=== PATIENT | female | born 1990 | race Native Hawaiian/Other Pacific Islander ===

== ENCOUNTER → 2018-06-10 | Outpatient (CLI) | payer OTHER ==
--- NOTE | 2018-06-10 17:56 | Diagnostic Imaging Report ---
PROCEDURE: US OB SINGLE FETUS <14 WKS. TECHNIQUE: Multiple real-time grayscale images were obtained over the gravid uterus in various projections. INDICATION: Assessment of date. FINDINGS: Intrauterine gestation is seen in variable presentation. Amniotic fluid index is unremarkable. cardiac activity is present with a rate of 142 beats per minute. There is no evidence of placenta previa. No placental hematoma is identified. Maternal ovaries are not visualized. biometry indicates gestational age of 16 weeks 1 day. IMPRESSION: Unremarkable obstetric ultrasound with estimated gestational age of 16 weeks 1 day. Sonographic EDC is 11/24/2018. Anatomic survey could be performed later in the second trimester. Dictated by: Dictated on workstation # [id number]
== END ==
LOC: RAD 14:04
PROVIDERS: ATTEND Family Medicine
DX: Z36.89 Encounter for other specified antenatal screening (principal); Z3A.16 16 weeks gestation of pregnancy
CPT/HCPCS: 76801

== ENCOUNTER 2018-06-26 17:37 | Emergency (ER) | payer SELFPAY ==
[~2018-06-26] VITALS: Ht 165.1 cm; Wt 72.6 kg
--- OUTSIDE RECORDS SUMMARY | 2018-06-26 17:42 | XMS REPORT ---
Author Author SAM BAO [facility] Address [address] [place] [address] Care Team Providers Care General Repairer Name Role Phone BAO VARGAS Unavailable PROBLEMS Type Condition ICD9-CM Code XHT29-VO Code Onset Dates Condition Status SNOMED Code Problem Microcytic anemia D50.9 Active 260995289 Problem Encounter for insertion of intrauterine contraceptive device Z30.430 Active 35762583 Problem Bug bites W57.XXXA Active 505942936 Problem Itching L29.9 Active 050294276 ALLERGIES No Information ENCOUNTERS Encounter Location Date Diagnosis [place] [id number] [place] [address] 52199- 5250 May, [facility] [address] [address]- [address] May, Microcytic anemia D50.9 [facility] [address] 78203- 4321 Apr, Multigravida in first trimester Z34.81 and Normal in multigravida Z34.80 [place] [id number] [place] [address] 30054- 9966 Apr, [facility] [id number] [place] [address] 20802- 1746 14 Apr, 2018 [place] [id number] [place] [address] 15962- 4444 Apr, [place] [id number] [place] [address] 31879- 0057 Apr, Encounter for test Z32.00 [facility] [id number] [place] [address] 64686 -3829 Feb, Irritant contact dermatitis due to other chemical products L24.5 [facility] [address], [place] [address] 5367 Feb, Frequent headaches R51 [facility] [id number] [place] [address] 36679 -5312 Feb, Frequent headaches R51 [facility] [id number] [place] [address] 34177 -5733 Aug, Other viral agents as the cause of diseases classified elsewhere B97.89 and Acute upper respiratory infection, unspecified J06.9 [place] [id number] [place] [address] 46516- 0401 Feb, Pyelonephritis N12 [place] [id number] [place] [address] 21353- 3689 Nov, Leukorrhea N89.8 ; Acute vaginitis N76.0 and Other specified bacterial agents as the cause of diseases classified elsewhere B96.89 [place] [id number] [place] [address] 47748- 7178 Oct, Right ovarian cyst N83.20 [place] [id number] [place] [address] 25835- 7094 Sep, [place] [id number] [place] [address] 97422- 4973 Aug, [place] [id number] [place] [address] 85126- 7512 Aug, Right ovarian cyst N83.20 [place] [id number] [place] [address] 45164- 4136 Aug, Encounter for insertion of intrauterine contraceptive device Z30.430 [place] [id number] [place] [address] 61714- 6762 Aug, Encounter for counseling regarding contraception Z30.9 [place] [id number] [place] [address] 30358- 4997 Aug, [place] [id number] [place] [address] 32726- 4952 18 Jul, 2015 Well woman exam Z01.419 ; Weight gain R63.5 and BMI 27.0- 27.9,adult Z68.27 [place] [id number] [place] [address] 31272- 1307 18 Jul, 2015 Erythema nodosum L52 and Fatigue R53.83 [place] [address] 20834- 1563 16 Jul, 2015 Erythema nodosum L52 [place] [address] 52335- 9624 30 Jun, 2015 General counseling and advice for contraceptive management Z30.09 and OCP (oral contraceptive pills) initiation Z30.011 [place] [id number] [place] [address] 37205- 6054 27 Jun, 2015 Bug bites W57.XXXA and Itching L29.9 [place] [id number] [place] [address] 22544- 8038 19 Jun, 2015 Well woman exam Z01.419 ; Weight gain R63.5 and BMI 27.0- 27.9,adult Z68.27 [place] [id number] [place] [address] 20098- 8400 27 May, 2015 Ankle pain, left M25.572 [facility] [id number] [place] [address] [id number] December, Dental examination V72.2 [facility] [id number] [place] [address] [id number] December, Dental examination V72.2 [place] [address] 89479- 0541 14 Nov, 2014 [place] [address] 57112- 4221 13 Nov, 2014 [place] [address] [place] [address]- 9429 Sep, 2014 [facility] [place] [facility] [address] [id number] [place] [address]- 6763 Sep, 2014 [facility] [place] [facility] [address] [id number] [place] [address]- 5887 Sep, 2014 [facility] [place] [facility] [address] [id number] [place] [address]- 2663 Sep, 2014 [facility] [place] [facility] [address] [id number] [place] [address]- 5580 Jun, [facility] [place] [facility] [address] [id number] [place] [address]- 8452 Jun, [facility] [place] [facility] [address] [id number] [place] [address]- 1043 May, [facility] [place] [facility] [address] [id number] [place] [address]- 4890 May, [facility] [place] [facility] [address] [id number] [place] [address]- 6561 Apr, [facility] [place] [facility] [address] [id number] [place] [address]- 1387 Apr, [facility] [place] [facility] [address] [id number] [place] [address]- 4423 Apr, [facility] [place] [facility] [address] [id number] [place] [address]- 6759 Apr, [facility] [place] [facility] [address] [id number] [place] [address]- 3018 Mar, [facility] [place] [facility] [address] [id number] [place] [address]- 1349 Mar, [facility] [place] [facility] [address] [id number] [place] [address]- 9154 December, [facility] [place] [facility] [address] [id number] [place] [address]- 9647 December, [facility] [place] [facility] [address] [id number] [place] [address]- 6620 Nov, [facility] [place] [facility] [address] [id number] [place] [address]- 7283 Nov, [facility] [place] [facility] [address] [id number] [place] [address]- 3660 Sep, [facility] [place] [facility] [address] [id number] [place] [address]- 9928 Sep, [facility] [place] [facility] [address] [id number] [place] [address]- 8542 Sep, [facility] [place] [facility] [address] [id number] [place] [address]- 7784 Sep, [facility] [place] [facility] [address] [id number] [place] [address]- 0922 Sep, [facility] [place] [facility] [address] [id number] [place] [address]- 1265 Sep, [facility] [place] [facility] [address] [id number] [place] [address]- 1613 Aug, [facility] [place] [facility] [address] [id number] [place] [address]- 8218 Aug, [facility] [place] [facility] [address] [id number] [place] [address]- 8784 Aug, [facility] [place] [facility] [address] [id number] [place] [address]- 8405 Aug, [facility] [place] [facility] [address] [id number] [place] [address]- 4855 Aug, [facility] [place] [facility] [address] [id number] [place] [address]- 3245 Aug, [facility] [place] [facility] [address] [id number] [place] [address]- 0111 Aug, [facility] [place] [facility] [address] [id number] [place] [address]- 6173 Aug, [facility] [address] [id number] [place] [address]- 5325 Jun, [facility] [place] [facility] [address] [id number] [place] [address]- 0538 Jun, [facility] [address] [id number] [place] [address]- 4906 Jan, [facility] [place] [facility] [address] [id number] [place] [address]- 3346 Jan, [facility] [address] [id number] [place] [address]- 2302 Oct, [facility] [place] [facility] [address] [facility] [id number] [place] [address]- 3914 Oct, [facility] [address] [facility] [id number] [place] [address]- 1480 Oct, [facility] [address] [facility] [id number] [place] [address]- 1900 Oct, [facility] [place] [facility] [address] [facility] [id number] [place] [address]- 3683 Oct, [facility] [address] [facility] [id number] [place] [address]- 7368 Sep, [facility] [place] [facility] [address] [id number] [place] [address]- 4159 Sep, [facility] [place] [facility] [address] [facility] [id number] [place] 3456 Sep, [facility] [place] [facility] [address] [id number] [place] [address]- 4712 May, [facility] [place] [facility] [address] [facility] [id number] [place] [address]- 7334 May, [facility] [place] [facility] [address] [facility] [id number] [place] 6366 May, [facility] [address] [facility] [id number] [place] [address]- 7996 Jan, [facility] [address] [facility] [id number] [place] [address]- 5096 Aug, IMMUNIZATIONS No Known Immunizations SOCIAL HISTORY Never Assessed REASON FOR VISIT Requesting lab results PLAN OF CARE VITAL SIGNS MEDICATIONS Medication Instructions Dosage Frequency Start Date End Date Duration Status Amoxicillin 500 mg Orally every 12 hrs 1 tablet 12h May, May, 7 days Active Ferrous Sulfate 325 (65 Fe) MG Orally Once a day 1 tablet 24h May, 30 day(s) Active RESULTS No Results PROCEDURES No Known procedures INSTRUCTIONS MEDICATIONS ADMINISTERED No Known Medications MEDICAL (GENERAL) HISTORY Type Description Date Surgical History No know Surgical history Hospitalization History childbirth 2008
--- OUTSIDE RECORDS SUMMARY | 2018-06-26 17:43 | XMS REPORT ---
Author Author AURELIA ABDUL Organization [facility] Address [address] [place] [address] Care Team Providers Care Finished Cloth Examiner Name Role Phone AURELIA ABDUL Unavailable PROBLEMS Type Condition ICD9-CM Code GSN79-NU Code Onset Dates Condition Status SNOMED Code Problem Encounter for insertion of intrauterine contraceptive device Z30.430 Active 49237058 Problem Bug bites W57.XXXA Active 092473225 Problem Itching L29.9 Active 475393774 ALLERGIES No Information ENCOUNTERS Encounter Location Date Diagnosis [place] [id number] [place] [address] 74218- 5627 Feb, Frequent headaches R51 [facility] [id number] [place] [address] 65113 -0021 Feb, Frequent headaches R51 [facility] [id number] [place] [address] 86069 -7491 Aug, Other viral agents as the cause of diseases classified elsewhere B97.89 and Acute upper respiratory infection, unspecified J06.9 [place] [id number] [place] [address] 25578- 4006 Feb, Pyelonephritis N12 [place] [id number] [place] [address] 51491- 8380 Nov, Leukorrhea N89.8 ; Acute vaginitis N76.0 and Other specified bacterial agents as the cause of diseases classified elsewhere B96.89 [place] [id number] [place] [address] 67069- 0145 Oct, Right ovarian cyst N83.20 [place] [id number] [place] [address] 74555- 2837 Sep, [place] [id number] [place] [address] 07357- 8096 27 Aug, 2015 [place] [id number] [place] [address] 58156- 7960 13 Aug, 2015 Right ovarian cyst N83.[address] 80380- 5532 11 Aug, 2015 Encounter for insertion of intrauterine contraceptive device Z30.[address] 96342- 8887 07 Aug, 2015 Encounter for counseling regarding contraception Z30.[address] 85996- 3206 04 Aug, 2015 [place] [address] 67356- 3853 18 Jul, 2015 Well woman exam Z01.419 ; Weight gain R63.5 and BMI 27.0- 27.9,adult Z68.[address] 33361- 4203 18 Jul, 2015 Erythema nodosum L52 and Fatigue R53.[address] 89083- 7980 16 Jul, 2015 Erythema nodosum L52 [address] 09088- 0581 30 Jun, 2015 General counseling and advice for contraceptive management Z30.09 and OCP (oral contraceptive pills) initiation Z30.011 [place] [id number] [place] [address] 30840- 0701 27 Jun, 2015 Bug bites W57.XXXA and Itching L29.[address] 15285- 1853 19 Jun, 2015 Well woman exam Z01.419 ; Weight gain R63.5 and BMI 27.0- 27.9,adult Z68.[address] 61114- 0596 May, Ankle pain, left M25.572 [facility] [address] [id number] [id number] December, Dental examination V72.2 [facility] [address] [id number] December, Dental examination V72.2 [facility] [id number] [place] [address] 00314- 9556 Nov, [facility] [address] [id number], [place] [address]- 2546 Nov, [facility] [id number] [place] [address] 76811- 8596 Sep, [facility] [id number] [address]- 2546 Sep, [facility] [id number] [address]- 5486 Sep, [facility] [id number] [address]- 4426 Sep, [facility] [id number] [address]- 0076 Jun, [facility] [address] [address]- 7036 Jun, [facility] [address] [facility] [id number], [place] [address]- 2546 May, [facility] [address] [facility] [id number] [address]- 2546 May, [facility] [address] [facility] [id number], [place] [address]- 2546 Apr, [facility] [address] [facility] [id number] [address]- 2546 Apr, [facility] [address] [id number] [address]- 9316 Apr, [facility] [place] [facility] [address] [id number] [place] [address]- 3850 Apr, [facility] [place] [facility] [address] [id number] [place] [address]- 6536 Mar, [facility] [place] [facility] [address] [id number] [place] [address]- 7900 Mar, [facility] [place] [facility] [address] [id number] [place] [address]- 6542 December, [facility] [place] [facility] [address] [id number] [place] [address]- 6260 December, [facility] [place] [facility] [address] [id number] [place] [address]- 8973 Nov, [facility] [place] [facility] [address] [id number] [place] [address]- 9193 Nov, [facility] [place] [facility] [address] [id number] [place] [address]- 7097 Sep, [facility] [place] [facility] [address] [id number] [place] [address]- 8262 Sep, [facility] [place] [facility] [address] [facility] [id number] [place] [address]- 4266 Sep, [facility] [place] [facility] [address] [id number] [place] [address]- 4324 Sep, [facility] [place] [facility] [address] [id number], [place] [address]- 0499 Sep, [facility] [place] [facility] [address] [id number] [place] [address]- 1766 Sep, [facility] [place] [facility] [address] [id number] [place] [address]- 9756 Aug, [facility] [place] [facility] [address] [id number] [place] [address]- 0307 Aug, [facility] [place] [facility] [address] [id number] [place] [address]- 7022 Aug, [facility] [address] [id number] [place] [address]- 8899 Aug, [facility] [address] [id number] [place] [address]- 5414 Aug, [facility] [address] [id number] [place] [address]- 9967 Aug, [facility] [address] [id number] [place] [address]- 8332 Aug, [facility] [address] [id number] [place] [address]- 2796 Aug, [facility] [address] [id number] [place] [address]- 7503 Jun, [facility] [address] [id number] [place] [address]- 1563 Jun, [facility] [address] [id number] [place] [address]- 3192 Jan, [facility] [address] [id number] [place] [address]- 7710 Jan, [facility] [address] [id number] [place] [address]- 1075 Oct, [facility] [address] [id number] [place] [address]- 5262 Oct, [facility] [place] [facility] [address] [id number] [place] [address]- 2600 Oct, [facility] [place] [facility] [address] [id number] [place] [address]- 0098 Oct, [facility] [place] [facility] [address] [id number] [place] [address]- 8850 Oct, [facility] [place] [facility] [address] [id number] [address]- 2720 Sep, [facility] [address] [id number] [address]- 4573 Sep, [facility] [address] [id number] [address]- 9786 Sep, [facility] [address] [address]- 4813 May, [facility] [id number] [place] [address] 79332- 4892 May, [facility] [address]65[address] [address]- 9360 May, [facility] [address]65[address] [address]- 4121 Jan, [facility] [address] [id number] [address]- 2244 Aug, IMMUNIZATIONS No Known Immunizations SOCIAL HISTORY Never Assessed REASON FOR VISIT Lab (walk-in)--Counts include 234 beds at the [facility] PLAN OF CARE VITAL SIGNS MEDICATIONS Unknown Medications RESULTS Name Result Date Reference Range TSH 2017-03-22 TSH 1.350 0.450-4.500 CBC 2017-03-22 WBC 3.9 3.4-10.8 RBC 4.20 3.77-5.28 Hemoglobin 11.2 11.1-15.9 Hematocrit 35.3 34.0-46.6 MCV 84 79-97 MCH 26.7 26.6-33.0 MCHC 31.7 31.5-35.7 RDW 14.8 12.3-15.4 Platelets 311 150-379 Neutrophils 50 Lymphs 38 Monocytes 6 Eos 5 Basos 1 Neutrophils (Absolute) 2.0 1.4-7.0 Lymphs (Absolute) 1.5 0.7-3.1 Monocytes(Absolute) 0.2 0.1-0.9 Eos (Absolute) 0.2 0.0-0.4 Baso (Absolute) 0.0 0.0-0.2 Immature Granulocytes 0 Immature Grans (Abs) 0.0 0.0-0.1 CMP 2017-03-22 Glucose, Serum 89 65-99 BUN 5 6-20 Creatinine, Serum 0.74 0.57-1.00 eGFR If NonAfricn Am 112 >59 eGFR If Africn Am 129 >59 BUN/Creatinine Ratio 7 9-23 Sodium, Serum 140 134-144 Potassium, Serum 4.0 3.5-5.2 Chloride, Serum 105 96-106 Carbon Dioxide, Total 19 18-29 Calcium, Serum 8.8 8.7-10.2 Protein, Total, Serum 6.8 6.0-8.5 Albumin, Serum 3.8 3.5-5.5 Globulin, Total 3.0 1.5-4.5 A/G Ratio 1.3 1.2-2.2 Bilirubin, Total 0.4 0.0-1.2 Alkaline Phosphatase, S 71 39-117 AST (SGOT) 11 0-40 ALT (SGPT) 7 0-32 PROCEDURES Procedure Date Ordered Result Body Site ASSAY THYROID STIM HORMONE March 22, 2017 COMPLETE CBC W/AUTO DIFF WBC March 22, 2017 VENIPUNCT, ROUTINE* March 22, 2017 COMPREHEN METABOLIC PANEL March 22, 2017 INSTRUCTIONS MEDICATIONS ADMINISTERED No Known Medications MEDICAL (GENERAL) HISTORY Type Description Date Hospitalization History childbirth 2008
--- OUTSIDE RECORDS SUMMARY | 2018-06-26 17:43 | XMS REPORT ---
Author Author SYLVESTER YOUNG [facility] Address [address] [place] [address] Care Team Providers Care Refrigerating Technician Name Role Phone SYLVESTER YOUNG Unavailable PROBLEMS Type Condition ICD9-CM Code KNO07-SH Code Onset Dates Condition Status SNOMED Code Problem Encounter for insertion of intrauterine contraceptive device Z30.430 Active 23620213 Problem Bug bites W57.XXXA Active 159135227 Problem Itching L29.9 Active 052001563 ALLERGIES No Known Allergies ENCOUNTERS Encounter Location Date Diagnosis [place] [id number] [address] May, [facility] [address] [address]- [address] Apr, Multigravida in first trimester Z34.81 and Normal in multigravida Z34.80 [facility] [address] 23978- [address] 20 Apr, 2018 [place] [address] [place] [id number] [place] [address] 97675- 5474 14 Apr, 2018 [facility] [address] 19644- 2759 Apr, [facility] [id number] [place] [address] 19603- 5247 07 Apr, 2018 Encounter for test Z32.00 [facility] [address] [address] Feb, Irritant contact dermatitis due to other chemical products L24.5 [facility] [id number] [place] [address] 34901- 5680 Feb, Frequent headaches R51 [facility] [id number] [place] [address] 51750 -4024 Feb, Frequent headaches R51 [facility] [id number] [place] [address] 65178 -0917 Aug, Other viral agents as the cause of diseases classified elsewhere B97.89 and Acute upper respiratory infection, unspecified J06.9 [place] [address] [address] [id number] [place] [address] 59929- 4044 Feb, Pyelonephritis N12 [place] [address] [address] [id number] [place] [address] 38227- 2956 Nov, Leukorrhea N89.8 ; Acute vaginitis N76.0 and Other specified bacterial agents as the cause of diseases classified elsewhere B96.89 [place] [address] [address] [id number] [place] [address] 47705- 1230 Oct, Right ovarian cyst N83.20 [place] [address] [address] [id number] [place] [address] 42807- 8570 Sep, [place] [address] [address] [id number] [place] [address] 32443- 3577 Aug, [place] [id number] [place] [address] 67335- 6431 Aug, Right ovarian cyst N83.20 [place] [address] [address] [id number] [place] [address] 89305- 2396 Aug, Encounter for insertion of intrauterine contraceptive device Z30.430 [place] [address] [address] [id number] [place] [address] 22430- 9092 Aug, Encounter for counseling regarding contraception Z30.9 [place] [address] [address] [id number] [place] [address] 26155- 1642 Aug, [place] [address] [address] [id number] [place] [address] 84456- 7047 Jul, Well woman exam Z01.419 ; Weight gain R63.5 and BMI 27.0- 27.9,adult Z68.27 [place] [id number] [place] [address] 00233- 4575 18 Jul, 2015 Erythema nodosum L52 and Fatigue R53.83 [place] [address] 15623- 4636 16 Jul, 2015 Erythema nodosum L52 [place] [address] 97701- 8383 30 Jun, 2015 General counseling and advice for contraceptive management Z30.09 and OCP (oral contraceptive pills) initiation Z30.011 [place] [address] 90821- 3129 27 Jun, 2015 Bug bites W57.XXXA and Itching L29.9 [place] [address] 92959- 1340 19 Jun, 2015 Well woman exam Z01.419 ; Weight gain R63.5 and BMI 27.0- 27.9,adult Z68.27 [place] [address] [id number] [place] [address] 58732- 8681 27 May, 2015 Ankle pain, left M25.572 [facility] [address] [id number] December, Dental examination V72.2 [facility] [address] [id number] December, Dental examination V72.2 [place] [address] [id number] [place] [address] 84407- 8924 Nov, [place] [address] 92291- 7171 Nov, [place] [address] 61456- 2892 Sep, [place] [address] 77751- 5560 Sep, [facility] [place] [facility] [address] [id number] [place] [address]- 5657 Sep, [facility] [place] [facility] [address] [id number] [place] [address]- 0033 Sep, [facility] [place] [facility] [address] [id number] [place] [address]- 4222 Jun, [facility] [place] [facility] [address] [id number] [place] [address]- 6759 Jun, [facility] [place] [facility] [address] [id number] [place] [address]- 0619 May, [facility] [place] [facility] [address] [id number] [place] [address]- 8644 May, [facility] [place] [facility] [address] [id number] [place] [address]- 4977 Apr, [facility] [place] [facility] [address] [id number] [place] [address]- 2920 Apr, [facility] [place] [facility] [address] [id number] [place] [address]- 7601 Apr, [facility] [place] [facility] [address] [id number] [place] [address]- 7073 Apr, [facility] [place] [facility] [address] [id number] [place] [address]- 8901 Mar, [facility] [place] [facility] [address] [id number], [place] [address]- 2510 Mar, [facility] [place] [facility] [address] [id number] [place] [address]- 3010 December, [facility] [place] [facility] [address] [id number] [place] [address]- 5944 December, [facility] [place] [facility] [address] [id number] [address]- 1681 Nov, [facility] [place] [facility] [address] [id number], [place] [address]- 6883 Nov, [facility] [place] [facility] [address] [id number] [place] [address]- 4456 Sep, [facility] [place] [facility] [address] [id number] [place] 6[address] Sep, [facility] [place] [facility] [address] [id number] [place] [address]- 4616 Sep, [facility] [place] [facility] [address] [id number] [place] [address]- 3642 Sep, [facility] [place] [facility] [address] [id number] [place] [address]- 0696 Sep, [facility] [place] [facility] [address] [id number] [place] [address]- 4946 Sep, [facility] [place] [facility] [address] [id number] [place] [address]- 7472 Aug, [facility] [place] [facility] [address] [id number] [place] [address]- 1178 Aug, [facility] [place] [facility] [address] [id number] [place] [address]- 8306 Aug, [facility] [place] [facility] [address] [id number] [place] [address]- 1161 Aug, [facility] [place] [facility] [address] [id number] [place] [address]- 8917 Aug, [facility] [place] [facility] [address] [id number] [place] [address]- 6753 Aug, [facility] [place] [facility] [address] [id number] [place] [address]- 1598 Aug, [facility] [place] [facility] [address] [id number] [place] [address]- 0568 Aug, [facility] [place] [facility] [address] [id number] [place] [address]- 4304 Jun, [facility] [place] [facility] [address] [id number] [place] [address]- 3567 Jun, [facility] [place] [facility] [address] [id number] [place] [address]- 8913 Jan, [facility] [place] [facility] [address] [id number] [place] [address]- 5180 Jan, [facility] [place] [facility] [address] [id number] [place] [address]- 0755 Oct, [facility] [place] [facility] [address] [id number] [place] [address]- 8172 Oct, [facility] [place] [facility] [address] [id number] [place] [address]- 5949 Oct, [facility] [address] [id number] [place] [address]- 4412 Oct, [facility] [place] [facility] [address] [id number] [place] [address]- 9196 Oct, [facility] [place] [facility] [address] [id number] [place] [address]- 7936 Sep, [facility] [place] [facility] [address] [id number] [place] [address]- 8353 Sep, [facility] [place] [facility] [address] [id number] [place] [address]- 1691 Sep, [facility] [place] [facility] [address] [id number], [place] [address]- 8319 May, [facility] [place] [facility] [address] [id number] [place] [address]- 5761 May, [facility] [place] [facility] [address] [id number] [place] [address]- 3346 May, [facility] [place] [facility] [address] [id number], [place] [address]- 9124 Jan, [facility] [place] [facility] [address] [id number] [address]- 1727 Aug, IMMUNIZATIONS No Known Immunizations SOCIAL HISTORY Never Assessed REASON FOR VISIT OB HX PLAN OF CARE VITAL SIGNS MEDICATIONS Medication Instructions Dosage Frequency Start Date End Date Duration Status Active Propranolol HCl 40 mg Orally Twice a day 1 tablet 12h Feb, 30 day(s) Unknown RESULTS No Results PROCEDURES No Known procedures INSTRUCTIONS MEDICATIONS ADMINISTERED No Known Medications MEDICAL (GENERAL) HISTORY Type Description Date Surgical History No know Surgical history Hospitalization History childbirth 2008
--- OUTSIDE RECORDS SUMMARY | 2018-06-26 17:43 | XMS REPORT ---
Author Author NINFA JACKSON Organization [facility] Address [address] [place] [address] Care Team Providers Care Hospital Secretary Name Role Phone NINFA JACKSON Unavailable PROBLEMS Type Condition ICD9-CM Code [id number] Code Onset Dates Condition Status SNOMED Code Problem Encounter for insertion of intrauterine contraceptive device Z30.430 Active 82339338 Problem Bug bites W57.XXXA Active 197776198 Problem Itching L29.9 Active 789479885 ALLERGIES No Known Allergies ENCOUNTERS Encounter Location Date Diagnosis [facility] [address] [address] Feb, Irritant contact dermatitis due to other chemical products L24.5 [facility] [address] [place] [id number] [place] [address] 32791- 1530 Feb, Frequent headaches R51 [facility] [address] 9[address] -2096 Feb, Frequent headaches R51 [facility] [address] [place] [id number] [place] [address] 45649 -9286 Aug, Other viral agents as the cause of diseases classified elsewhere B97.89 and Acute upper respiratory infection, unspecified J06.9 [facility] [address] [place] [id number] [place] [address] 07724- 3211 Feb, Pyelonephritis N12 [place] [address] 36[address]- 8265 Nov, Leukorrhea N89.8 ; Acute vaginitis N76.0 and Other specified bacterial agents as the cause of diseases classified elsewhere B96.89 [place] [address] 52734- 6056 Oct, Right ovarian cyst N83.20 [place] [address] [place] [id number] [place] [address] 22658- 8069 04 Sep, 2015 [place] [address] 39261- 9256 Aug, [place] [address] 03278- 7656 Aug, Right ovarian cyst N83.20 [place] [address] 00824- 5369 Aug, Encounter for insertion of intrauterine contraceptive device Z30.[address] 77274- 2963 07 Aug, 2015 Encounter for counseling regarding contraception Z30.[address] 71236- 0493 Aug, [place] [address] 07606- 5190 Jul, Well woman exam Z01.419 ; Weight gain R63.5 and BMI 27.0- 27.9,adult Z68.[address] 60007- 9297 Jul, Erythema nodosum L52 and Fatigue R53.[address] 74711- 5525 Jul, Erythema nodosum L52 [address] 43065- 9345 30 Jun, 2015 General counseling and advice for contraceptive management Z30.09 and OCP (oral contraceptive pills) initiation Z30.[address] 22346- 9148 27 Jun, 2015 Bug bites W57.XXXA and Itching L29.[address] 03744- 5156 Jun, Well woman exam Z01.419 ; Weight gain R63.5 and BMI 27.0- 27.9,adult Z68.27 [facility] [address] [place] [address] [id number] [place] [address] 74016- 1226 May, Ankle pain, left M25.572 [facility] [address] [id number] [place] [address] [id number] December, Dental examination V72.2 [facility] [address] [id number] December, Dental examination V72.2 [facility] [address] [address] [id number] [place] [address] 98970- 4830 Nov, [facility] [address] [place] [id number] [place] [address] 858185- 2686 Nov, [facility] [address] [place] [id number] [place] [address] 454485- 7231 Sep, [facility] [address] [place] [address] [id number] [place] [address] 55636- 4441 Sep, [facility] [address] [address] [id number] [place] [address] 62448- 4429 Sep, [facility] [address] [id number] [place] [address] 20019- 6570 Sep, [facility] [address] [place] [address] [id number] [place] [address] 26164- 2546 Jun, [facility] [address] [place] [id number] [place] [address] 000272- 2646 Jun, [facility] [address] [place] [id number] [place] [address] 57922- 3442 May, [facility] [address] [place] [id number] [place] [address] 90834- 7336 May, [facility] [address] [place] [id number] [place] [address] 217997- 7776 Apr, [facility] [place] [facility] [address] [id number] [place] [address]- 6045 Apr, [facility] [place] [facility] [address] [id number] [place] [address]- 4071 Apr, [facility] [place] [facility] [address] [id number] [place] [address]- 2649 Apr, [facility] [place] [facility] [address] [id number] [place] [address]- 9646 Mar, [facility] [place] [facility] [address] [id number] [place] [address]- 0665 Mar, [facility] [place] [facility] [address] [id number] [place] [address]- 2396 December, [facility] [place] [facility] [address] [id number] [place] [address]- 1972 December, [facility] [place] [facility] [address] [id number] [place] [address]- 2860 Nov, [facility] [place] [facility] [address] [id number] [place] [address]- 4785 Nov, [facility] [place] [facility] [address] [id number] [place] [address]- 6241 Sep, [facility] [place] [facility] [address] [id number] [place] [address]- 3495 Sep, [facility] [place] [facility] [address] [id number] [place] [address]- 6336 Sep, [facility] [place] [facility] [address] [id number] [place] [address]- 5977 Sep, [facility] [place] [facility] [address] [id number] [place] [address]- 8297 Sep, [facility] [place] [facility] [address] [id number] [place] [address]- 9545 Sep, [facility] [place] [facility] [address] [id number] [place] [address]- 6605 Aug, [facility] [address] [id number] [place] [address]- 4487 Aug, [facility] [place] [facility] [address] [id number] [place] [address]- 9000 Aug, [facility] [address] [id number] [place] [address]- 5782 Aug, [facility] [place] [facility] [address] [id number] [place] [address]- 6401 Aug, [facility] [address] [id number] [place] [address]- 7503 Aug, [facility] [place] [facility] [address] [id number] [place] [address]- 4005 Aug, [facility] [address] [id number] [place] [address]- 6936 Aug, [facility] [address] [id number] [place] [address]- 6526 Jun, [facility] [place] [facility] [address] [id number] [place] [address]- 2531 Jun, [facility] [address] [id number] [place] [address]- 2404 Jan, [facility] [place] [facility] [address] [id number] [place] [address]- 3077 Jan, [facility] [place] [facility] [address] [id number] [place] [address]- 1320 Oct, [facility] [place] [facility] [address] [id number] [place] [address]- 7982 Oct, [facility] [place] [facility] [address] [id number] [place] [address]- 9029 Oct, [facility] [place] [facility] [address] [id number] [place] [address]- 2230 Oct, [facility] [address] [id number] [address] 2546 Oct, [facility] [address] [address]- 6186 Sep, [facility] [address] [address]- 8116 Sep, [facility] [address], [place] [address] 2546 Sep, [facility] [address] [address]- 8930 May, [facility] [address] [place] [address]- 6716 May, [facility] [address], [place] [address] 2546 May, [facility] [address] [place] [address]- 9396 Jan, [facility] [address] [id number] [address]- 8656 Aug, IMMUNIZATIONS No Known Immunizations SOCIAL HISTORY Never Assessed REASON FOR VISIT rash on left middle finger that itches for 2 weeks. kbullardrn PLAN OF CARE Activity Details Follow Up 1 Week, prn Reason:if symptoms worsen or not improving VITAL SIGNS Height 62 in 2018-03-07 Weight 146.6 lbs 2018-03-07 Temperature 98.4 degrees Fahrenheit 2018-03-07 Heart Rate 82 bpm 2018-03-07 Respiratory Rate 20 2018-03-07 BMI 26.81 kg/m2 2018-03-07 Blood pressure systolic 124 mmHg 2018-03-07 Blood pressure diastolic 76 mmHg 2018-03-07 MEDICATIONS Medication Instructions Dosage Frequency Start Date End Date Duration Status Propranolol HCl 40 mg Orally Twice a day 1 tablet 12h Feb, 30 day(s) Not-Taking Cetirizine HCl 10 mg Orally Once a day 1 tablet 24h Feb, Feb, 07 days Active Betamethasone Dipropionate Aug 0.05 % Externally Once a day 1 application to affected area 24h Feb, Feb, 07 days Active RESULTS No Results PROCEDURES No Known procedures INSTRUCTIONS MEDICATIONS ADMINISTERED No Known Medications MEDICAL (GENERAL) HISTORY Type Description Date Hospitalization History childbirth 2008
--- OUTSIDE RECORDS SUMMARY | 2018-06-26 17:43 | XMS REPORT ---
Author Author BIANKA SMITH [facility] Address [address] [place] [address] Care Team Providers Care Advanced Nursing Professor Name Role Phone LUIS BIANKA Unavailable PROBLEMS Type Condition ICD9-CM Code DTM40-YB Code Onset Dates Condition Status SNOMED Code Problem Encounter for insertion of intrauterine contraceptive device Z30.430 Active 86374473 Problem Bug bites W57.XXXA Active 844952767 Problem Itching L29.9 Active 062604875 ALLERGIES No Information ENCOUNTERS Encounter Location Date Diagnosis [place] [address] [address] May, [place] [address] 97376- 9348 Apr, Multigravida in first trimester Z34.81 and Normal in multigravida Z34.80 [place] [address] 24896- 7370 Apr, [place] [address] [place] [id number] [place] [address] 56460- 3665 14 Apr, 2018 [place] [address] 43155- 4264 Apr, [place] [address] [place] [id number] [place] [address] 64076- 1175 07 Apr, 2018 Encounter for test Z32.00 [facility] [address] [place] [address] 18680 -6281 Feb, Irritant contact dermatitis due to other chemical products L24.5 [place] [address] [place] [id number] [place] [address] 18369- 0321 Feb, Frequent headaches R51 [facility] [address] [place] [address] 50497 -9662 Feb, Frequent headaches R51 [facility] [address] [place] [id number] [place] [address] 94334 -4626 Aug, Other viral agents as the cause of diseases classified elsewhere B97.89 and Acute upper respiratory infection, unspecified J06.9 [place] [address] [place] [id number] [place] [address] 32161- 6133 Feb, Pyelonephritis N12 [place] [address] [place] [id number] [place] [address] 30262- 9085 Nov, Leukorrhea N89.8 ; Acute vaginitis N76.0 and Other specified bacterial agents as the cause of diseases classified elsewhere B96.89 [place] [address] [place] [id number] [place] [address] 19067- 3057 Oct, Right ovarian cyst N83.20 [place] [address] 17939- 6009 Sep, [place] [address] [place] [id number] [place] [address] 28766- 3587 Aug, [place] [address] [place] [id number] [place] [address] 29343- 2974 Aug, Right ovarian cyst N83.20 [place] [address] [place] [id number] [place] [address] 80049- 4058 Aug, Encounter for insertion of intrauterine contraceptive device Z30.430 [place] [address] [place] [id number] [place] [address] 57395- 7714 Aug, Encounter for counseling regarding contraception Z30.9 [place] [address] 41139- 2607 Aug, [place] [address] [place] [id number] [place] [address] 53234- 8998 Jul, Well woman exam Z01.419 ; Weight gain R63.5 and BMI 27.0- 27.9,adult Z68.27 [place] [address] [place] [id number] [place] [address] 76306- 1190 18 Jul, 2015 Erythema nodosum L52 and Fatigue R53.83 [place] [address] 89703- 7636 16 Jul, 2015 Erythema nodosum L52 [place] [address] 08304- 2498 30 Jun, 2015 General counseling and advice for contraceptive management Z30.09 and OCP (oral contraceptive pills) initiation Z30.011 [place] [address] 28403- 2153 27 Jun, 2015 Bug bites W57.XXXA and Itching L29.9 [place] [address] 48540- 3815 Jun, Well woman exam Z01.419 ; Weight gain R63.5 and BMI 27.0- 27.9,adult Z68.27 [place] [address] 68811- 7121 May, Ankle pain, left M25.572 [facility] [address] [id number] December, Dental examination V72.2 [facility] [address] [id number] December, Dental examination V72.2 [place] [address] [place] [id number] [place] [address] 68247- 0584 Nov, [place] [address] 33654- 9179 Nov, [place] [address] 67096- 8416 Sep, [place] [address] 68923- 2752 Sep, [facility] [place] [facility] [address] [id number] [place] [address]- 8517 Sep, [facility] [place] [facility] [address] [id number] [place] [address]- 1251 Sep, [facility] [place] [facility] [address] [id number] [place] [address]- 9871 Jun, [facility] [place] [facility] [address] [id number] [place] [address]- 4026 Jun, [facility] [place] [facility] [address] [id number] [place] [address]- 7538 May, [facility] [place] [facility] [address] [id number] [place] [address]- 1942 May, [facility] [place] [facility] [address] [id number] [place] [address]- 0273 Apr, [facility] [place] [facility] [address] [id number] [place] [address]- 5445 Apr, [facility] [place] [facility] [address] [id number] [place] [address]- 9790 Apr, [facility] [place] [facility] [address] [id number] [place] [address]- 0160 Apr, [facility] [place] [facility] [address] [id number] [place] [address]- 3154 Mar, [facility] [place] [facility] [address] [id number] [place] [address]- 8662 Mar, [facility] [place] [facility] [address] [id number] [place] [address]- 4008 December, [facility] [place] [facility] [address] [id number] [place] [address]- 4280 December, [facility] [place] [facility] [address] [id number] [place] [address]- 5935 Nov, [facility] [place] [facility] [address] [id number] [place] [address]- 5695 Nov, [facility] [place] [facility] [address] [id number] [place] [address]- 1146 Sep, [facility] [place] [facility] [address] [id number] [place] 2506 Sep, [facility] [place] [facility] [address] [id number] [place] [address]- 8216 Sep, [facility] [place] [facility] [address] [id number] [place] [address]- 1919 Sep, [facility] [place] [facility] [address] [id number] [place] [address]- 0188 Sep, [facility] [place] [facility] [address] [id number] [place] [address]- 7340 Sep, [facility] [place] [facility] [address] [id number] [place] [address]- 2417 Aug, [facility] [place] [facility] [address] [id number] [place] [address]- 0573 Aug, [facility] [place] [facility] [address] [id number] [place] [address]- 8827 Aug, [facility] [place] [facility] [address] [facility] [id number] [place] [address]- 0954 Aug, [facility] [place] [facility] [address] [id number] [place] [address]- 8595 Aug, [facility] [place] [facility] [address] [id number] [address]- 7122 Aug, [facility] [place] [facility] [address] [id number] [place] [address]- 4275 Aug, [facility] [place] [facility] [address] [id number] [place] [address]- 1459 Aug, [facility] [place] [facility] [address] [id number] [place] [address]- 2085 Jun, [facility] [place] [facility] [address] [id number] [place] [address]- 4877 Jun, [facility] [place] [facility] [address] [id number] [place] 7284 Jan, [facility] [place] [facility] [address] [id number] [place] [address]- 7073 Jan, [facility] [place] [facility] [address] [id number] [place] [address]- 4979 Oct, [facility] [place] [facility] [address] [id number] [place] [address]- 0958 Oct, [facility] [place] [facility] [address] [id number] [place] [address]- 6667 Oct, [facility] [place] [facility] [address] [id number] [place] [address]- 0451 Oct, [facility] [place] [facility] [address] [id number] [place] [address]- 1156 Oct, [facility] [place] [facility] [address] [id number] [place] [address]- 6761 Sep, [facility] [place] [facility] [address] [id number] [place] [address]- 1399 Sep, [facility] [place] [facility] [address] [id number] [place] [address]- 2095 Sep, [facility] [place] [facility] [address] [id number] [place] [address]- 9112 May, [facility] [place] [facility] [address] [id number] [place] [address]- 1367 May, [facility] [place] [facility] [address] [id number] [place] [address]- 5274 May, [facility] [place] [facility] [address] [id number] [place] [address]- 8496 Jan, [facility] [place] [facility] [address] [id number] [place] [address]- 3006 Aug, IMMUNIZATIONS No Known Immunizations SOCIAL HISTORY Never Assessed REASON FOR VISIT test (walk-in)--KUMAR Heller PLAN OF CARE VITAL SIGNS MEDICATIONS Unknown Medications RESULTS Name Result Date Reference Range TEST, URINE (IN HOUSE) 2018-05-03 RESULTS positive Lot # [id number] Control + Exp date 05/2020 PROCEDURES Procedure Date Ordered Result Body Site URINE TEST May 03, 2018 INSTRUCTIONS MEDICATIONS ADMINISTERED No Known Medications MEDICAL (GENERAL) HISTORY Type Description Date Surgical History No know Surgical history Hospitalization History childbirth 2009
--- OUTSIDE RECORDS SUMMARY | 2018-06-26 17:44 | XMS REPORT ---
Author Author GERBER QUEEN [facility] [employer] Address Unknown Phone Unavailable Care Team Providers Care Swine Genetics Researcher Name Role Phone GERBER QUEEN Unavailable Allergies No Known Allergies Problems Problem Type Condition Code Onset Dates Condition Status Problem Bug bites W57.XXXA Active Problem Itching L29.9 Active Problem Encounter for insertion of intrauterine contraceptive device Z30.430 Active Medications No Known Medications Results No Known Results Summary Purpose eClinicalWorks Submission
--- OUTSIDE RECORDS SUMMARY | 2018-06-26 17:44 | XMS REPORT ---
Author Author GERBER QUEEN [facility] eClinicalWorks Address Unknown Phone Unavailable Care Team Providers Care Group Teacher Name Role Phone GERBER QUEEN CP Unavailable Allergies, Adverse Reactions, Alerts Substance Reaction Event Type N.K.D.A. Info Not Available Non Drug Allergy Problems Problem Type Condition Code Onset Dates Condition Status Problem Bug bites W57.XXXA Active Problem Itching L29.9 Active Problem Encounter for insertion of intrauterine contraceptive device Z30.430 Active Assessment Encounter for insertion of intrauterine contraceptive device Z30.430 Active Medications Medication Code System Code Instructions Start Date End Date Status Dosage Ibuprofen [facility] [address]-65 800 MG Orally Three times a day Aug 11, 2015 Oct 10, 2015 1 tablet Vistaril [facility] [address]-39 25 MG Orally every 8 hrs Jul 23, 2015 1 capsule as needed Triamcinolone Acetonide [facility] [address]-86 0.1 % Externally Twice a day Jul 23, 2015 1 application to affected area Procedures Procedure Coding System Code Date URINE TEST CPT-4 50241 Sep 06, 2015 LEVONORGESTREL INTRAUTERN CNTRACPT CPT-4 J7302 Sep 06, 2015 INSERT INTRAUTERINE DEVICE CPT-4 85691 Sep 06, 2015 Vital Signs Date/Time: Sep 06, 2015 Temperature 97.1 F Weight 159.3 lbs Height 62 in BMI 29.13 Index Blood Pressure Diastolic 82 mmHg Blood Pressure Systolic 124 mmHg Cardiac Monitoring Heart Rate 84 bpm Results Name Result Date Reference Range Unit Abnormality Flag IUD INSERTION Summary Purpose eClinicalWorks Submission
--- OUTSIDE RECORDS SUMMARY | 2018-06-26 17:44 | XMS REPORT ---
Author Author LIZZIE DOWELL Organization [employer] Address Unknown Phone Unavailable Care Team Providers Care Manager Testing Name Role Phone LIZZIE DOWELL CP Unavailable Allergies, Adverse Reactions, Alerts Substance Reaction Event Type N.K.D.A. Info Not Available Non Drug Allergy Problems Problem Type Condition Code Onset Dates Condition Status Problem Screening for malignant neoplasm of the cervix V76.2 Active Problem Surveillance of other previously prescribed contraceptive method V25.49 Active Problem Screening examination for venereal disease V74.5 Active Problem Other dyspnea and respiratory abnormalities 786.09 Active Problem Unspecified anemia 285.9 Active Problem Other malaise and fatigue 780.79 Active Problem Contact dermatitis and other eczema, due to unspecified cause 692.9 Active Problem Unspecified contraceptive management V25.9 Active Problem Encounter for removal of intrauterine contraceptive device V25.12 Active Problem Other general counseling and advice for contraceptive management V25.09 Active Assessment Ankle pain, left M25.572 Active Problem Cellulitis and abscess of leg, except foot 682.6 Active Problem Headache 784.0 Active Problem Cellulitis and abscess of buttock 682.5 Active Problem Screening examination for pulmonary tuberculosis V74.1 Active Problem Unspecified symptom associated with female genital organs 625.9 Active Problem Lumbago 724.2 Active Medications No Known Medications Procedures Procedure Coding System Code Date Office Visit, Est Pt., Level 3 CPT-4 32481 Jun 22, 2015 Vital Signs Date/Time: Jun 22, 2015 Temperature 97.9 F Weight 148.3 lbs Height 62 in BMI 27.12 Index Blood Pressure Diastolic 74 mmHg Blood Pressure Systolic 130 mmHg Cardiac Monitoring Heart Rate 84 bpm Results No Known Results Summary Purpose eClinicalWorks Submission
--- OUTSIDE RECORDS SUMMARY | 2018-06-26 17:44 | XMS REPORT ---
Author Author GERBER QUEEN [facility] eClinicalWorks Address Unknown Phone Unavailable Care Team Providers Care Learning And Development Specialist Name Role Phone GERBER QUEEN Unavailable Allergies No Known Allergies Problems Problem Type Condition Code Onset Dates Condition Status Problem Itching L29.9 Active Assessment Well woman exam Z01.419 Active Problem Bug bites W57.XXXA Active Assessment Weight gain R63.5 Active Assessment BMI 27.0-27.9,adult Z68.27 Active Medications No Known Medications Procedures Procedure Coding System Code Date COMPLETE CBC W/AUTO DIFF WBC CPT-4 00320 Aug 13, 2015 COMPREHEN METABOLIC PANEL CPT-4 27284 Aug 13, 2015 GLYCATED HEMOGLOBIN TEST CPT-4 11522 Aug 13, 2015 Results No Known Results Summary Purpose eClinicalWorks Submission
--- OUTSIDE RECORDS SUMMARY | 2018-06-26 17:44 | XMS REPORT ---
Author Author AURELIA ABDUL Organization [facility] Address [address] [place] [address] Care Team Providers Care Nuclear Licensing Engineer Name Role Phone UARELIA ABDUL Unavailable PROBLEMS Type Condition ICD9-CM Code BNX29-UX Code Onset Dates Condition Status SNOMED Code Problem Encounter for insertion of intrauterine contraceptive device Z30.430 Active 97993702 Problem Bug bites W57.XXXA Active 328584801 Problem Itching L29.9 Active 417448013 ALLERGIES No Known Allergies ENCOUNTERS Encounter Location Date Diagnosis [place] [address] [place] [id number] [place] [address] 32698- 8265 Feb, Frequent headaches R51 [facility] [address] [place] [id number] [place] [address] 31912 -7757 Feb, Frequent headaches R51 [facility] [address] [place] [id number] [place] [address] 13439 -4659 Aug, Other viral agents as the cause of diseases classified elsewhere B97.89 and Acute upper respiratory infection, unspecified J06.9 [place] [address] [place] [address] 28768- 8961 Feb, Pyelonephritis N12 [place] [address] [place] [id number] [place] [address] 44156- 2198 Nov, Leukorrhea N89.8 ; Acute vaginitis N76.0 and Other specified bacterial agents as the cause of diseases classified elsewhere B96.89 [place] [address] [place] [id number] [place] [address] 05655- 7534 Oct, Right ovarian cyst N83.20 [place] [address] [place] [id number] [place] [address] 77969- 0207 Sep, [place] [address] [place] [id number] [place] [address] 05463- 7446 27 Aug, 2015 [place] [address] [place] [id number] [place] [address] 84045- 2329 13 Aug, 2015 Right ovarian cyst N83.[address] 45262- 3705 11 Aug, 2015 Encounter for insertion of intrauterine contraceptive device Z30.[address] 99468- 3463 07 Aug, 2015 Encounter for counseling regarding contraception Z30.[address] 66904- 0007 04 Aug, [address] 56298- 7113 18 Jul, 2015 Well woman exam Z01.419 ; Weight gain R63.5 and BMI 27.0- 27.9,adult Z68.[address] 26880- 4306 18 Jul, 2015 Erythema nodosum L52 and Fatigue R53.[address] 70788- 6778 16 Jul, 2015 Erythema nodosum L52 [address] 76763- 4456 30 Jun, 2015 General counseling and advice for contraceptive management Z30.09 and OCP (oral contraceptive pills) initiation Z30.011 [place] [id number] [place] [address] 95829- 2165 27 Jun, 2015 Bug bites W57.XXXA and Itching L29.[address] 78968- 5868 19 Jun, 2015 Well woman exam Z01.419 ; Weight gain R63.5 and BMI 27.0- 27.9,adult Z68.[address] 11594- 2406 May, Ankle pain, left M25.572 [facility] [address] [id number] [id number] December, Dental examination V72.2 [facility] [address] [id number] December, Dental examination V72.2 [facility] [id number] [place] [address] 74504- 1576 Nov, [facility] [address] [id number], [place] [address]- 7975 Nov, [facility] [address] [id number] [place] [address] 84119- 7136 Sep, [facility] [address] [address]- 7786 Sep, [facility] [address] [place] [id number] [place] [address] 83571- 6936 Sep, [facility] [address] [place] [address] [id number] [address]- 2456 Sep, [facility] [address] [address]- 4666 Jun, [facility] [address] [address]- 9776 Jun, [facility] [address] [facility] [id number], [place] [address]- 2546 May, [facility] [address] [facility] [id number], [place] [address]- 9306 May, [facility] [address] [facility] [id number], [place] [address]- 2546 Apr, [facility] [address] [facility] [id number], [place] [address]- 2486 Apr, [facility] [address] [facility] [id number], [place] [address]- 4588 Apr, [facility] [place] [facility] [address] [id number] [place] [address]- 3715 Apr, [facility] [place] [facility] [address] [id number] [place] [address]- 9401 Mar, [facility] [place] [facility] [address] [id number] [place] [address]- 7398 Mar, [facility] [place] [facility] [address] [id number] [place] [address]- 2197 December, [facility] [place] [facility] [address] [id number] [place] [address]- 7354 December, [facility] [place] [facility] [address] [id number] [place] [address]- 7294 Nov, [facility] [place] [facility] [address] [id number] [place] [address]- 8412 Nov, [facility] [place] [facility] [address] [id number] [place] [address]- 8748 Sep, [facility] [place] [facility] [address] [id number] [place] [address]- 8734 Sep, [facility] [place] [facility] [address] [id number] [place] [address]- 1786 Sep, [facility] [place] [facility] [address] [id number] [place] [address]- 1621 Sep, [facility] [place] [facility] [address] [id number] [place] [address]- 0503 Sep, [facility] [place] [facility] [address] [id number] [place] [address]- 0057 Sep, [facility] [place] [facility] [address] [id number] [place] [address]- 8618 Aug, [facility] [place] [facility] [address] [id number] [place] [address]- 0333 Aug, [facility] [place] [facility] [address] [id number] [place] [address]- 7288 Aug, [facility] [address] [id number] [place] [address]- 3207 Aug, [facility] [address] [id number] [place] [address]- 2868 Aug, [facility] [address] [id number] [place] [address]- 3246 Aug, [facility] [address] [id number] [place] [address]- 1577 Aug, [facility] [address] [id number] [place] [address]- 1465 Aug, [facility] [address] [id number] [place] [address]- 1087 Jun, [facility] [address] [id number] [place] [address]- 7340 Jun, [facility] [address] [id number] [place] [address]- 3309 Jan, [facility] [address] [id number] [place] [address]- 8118 Jan, [facility] [address] [id number] [place] [address]- 5251 Oct, [facility] [address] [id number] [place] [address]- 2273 Oct, [facility] [place] [facility] [address] [id number] [place] [address]- 4827 Oct, [facility] [place] [facility] [address] [id number] [place] [address]- 3462 Oct, [facility] [place] [facility] [address] [id number] [place] [address]- 7179 Oct, [facility] [place] [facility] [address] [id number], [place] [address] 2546 Sep, [facility] [address] [id number], [place] [address]- 6345 Sep, [facility] [address]65[address], [place] [address] 2546 Sep, [facility] [address]65100[place], [place] [address]- 8056 May, [facility] [address]65[address], [place] [address]- 2546 May, [facility] [address], [place] [address] 2546 May, [facility] [address], [place] [address]- 0986 Jan, [facility] [address]65[address] [address]- 3837 Aug, IMMUNIZATIONS No Known Immunizations SOCIAL HISTORY Never Assessed REASON FOR VISIT headaches for years- has been gettng worse is not forgetting [facility] PLAN OF CARE VITAL SIGNS Height 62 in 2017-03-21 Weight 156.0 lbs 2017-03-21 Temperature 98.4 degrees Fahrenheit 2017-03-21 Heart Rate 80 bpm 2017-03-21 Respiratory Rate 20 2017-03-21 BMI 28.53 kg/m2 2017-03-21 Blood pressure systolic 148 mmHg 2017-03-21 Blood pressure diastolic 92 mmHg 2017-03-21 MEDICATIONS Medication Instructions Dosage Frequency Start Date End Date Duration Status Propranolol HCl 40 mg Orally Twice a day 1 tablet 12h Feb, 30 day(s) Active RESULTS No Results PROCEDURES No Known procedures INSTRUCTIONS MEDICATIONS ADMINISTERED No Known Medications MEDICAL (GENERAL) HISTORY Type Description Date Hospitalization History childbirth 2008
--- OUTSIDE RECORDS SUMMARY | 2018-06-26 17:44 | XMS REPORT ---
Author Author LIZZIE DOWELL Organization [employer] Address Unknown Phone Unavailable Care Team Providers Care Cesspool Cleaner Name Role Phone LIZZIE DOWELL CP Unavailable Allergies, Adverse Reactions, Alerts Substance Reaction Event Type N.K.D.A. Info Not Available Non Drug Allergy Problems Problem Type Condition Code Onset Dates Condition Status Assessment Pyelonephritis N12 Active Medications Medication Code System Code Instructions Start Date End Date Status Dosage Ceftin [facility] [address]-95 500 MG Orally Twice a day March 05, 2016 March 15, 2016 1 tablet Zofran [facility] [address]-05 4 MG Orally every 8 hours, PRN March 06, 2016 1 tablets Cipro [facility] [address]-53 500 MG Orally Twice a day March 05, 2016 March 15, 2016 1 tablet Meclizine HCl [facility] [address]-21 25 MG Orally Once a day 1 tablet as needed Procedures Procedure Coding System Code Date Office Visit, Est Pt., Level 3 CPT-4 77637 March 06, 2016 Vital Signs Date/Time: March 06, 2016 Cardiac Monitoring Heart Rate 120 bpm Weight 149.5 lbs Height 65 in BMI 24.88 Index Blood Pressure Diastolic 68 mmHg Blood Pressure Systolic 102 mmHg Results No Known Results Summary Purpose [employer] Submission
--- OUTSIDE RECORDS SUMMARY | 2018-06-26 17:44 | XMS REPORT ---
Author Author BUCKY SPARKS Organization [facility] Address [address] [place] [address] Care Team Providers Care Retail Attendant Name Role Phone CLARE BUCKY Unavailable PROBLEMS Type Condition ICD9-CM Code TOZ77-IF Code Onset Dates Condition Status SNOMED Code Problem Encounter for insertion of intrauterine contraceptive device Z30.430 Active 01595110 Problem Bug bites W57.XXXA Active 011218729 Problem Itching L29.9 Active [id number] ALLERGIES No Known Allergies SOCIAL HISTORY Never Assessed PLAN OF CARE Activity Details Follow Up prn Reason: VITAL SIGNS Height 65 in 2016-09-20 Weight 156.6 lbs 2016-09-20 Temperature 97.7 degrees Fahrenheit 2016-09-20 Heart Rate 80 bpm 2016-09-20 Respiratory Rate 20 2016-09-20 BMI 26.06 kg/m2 2016-09-20 Blood pressure systolic 128 mmHg 2016-09-20 Blood pressure diastolic 76 mmHg 2016-09-20 MEDICATIONS Unknown Medications RESULTS No Results PROCEDURES No Known procedures IMMUNIZATIONS No Known Immunizations MEDICAL (GENERAL) HISTORY Type Description Date Hospitalization History childbirth 2008
--- OUTSIDE RECORDS SUMMARY | 2018-06-26 17:44 | XMS REPORT ---
Author Author VALDEZ LEBLANC [facility] eClinicalWorks Address Unknown Phone Unavailable Care Team Providers Care [place] Name Role Phone VALDEZ LEBLANC CP Unavailable Allergies, Adverse Reactions, Alerts Substance Reaction Event Type N.K.D.A. Info Not Available Non Drug Allergy Problems Problem Type Condition Code Onset Dates Condition Status Problem Itching L29.9 Active Assessment Erythema nodosum L52 Active Problem Bug bites W57.XXXA Active Medications Medication Code System Code Instructions Start Date End Date Status Dosage Balziva [facility] [address]-03 0.4-35 MG-MCG Orally Once a day Jul 26, 2015 1 tablet Triamcinolone Acetonide [facility] [address]-64 0.1 % Externally Twice a day Jul 23, 2015 1 application to affected area Ibuprofen [facility] [address]-27 800 MG Orally Three times a day Aug 11, 2015 Oct 10, 2015 1 tablet Vistaril [facility] [address]-45 25 MG Orally every 8 hrs Jul 23, 2015 1 capsule as needed Procedures Procedure Coding System Code Date COMPREHEN METABOLIC PANEL CPT-4 20296 Aug 11, 2015 RBC SED RATE, AUTOMATED CPT-4 31828 Aug 11, 2015 ASSAY THYROID STIM HORMONE CPT-4 78405 Aug 11, 2015 Office Visit, Est Pt., Level 4 CPT-4 24715 Aug 11, 2015 COMPLETE CBC W/AUTO DIFF WBC CPT-4 91656 Aug 11, 2015 VENIPUNCT, ROUTINE* CPT-4 84436 Aug 11, 2015 Vital Signs Date/Time: Aug 11, 2015 Temperature 98.2 F Weight 157.7 lbs Height 62 in BMI 28.84 Index Blood Pressure Diastolic 80 mmHg Blood Pressure Systolic 118 mmHg Cardiac Monitoring Heart Rate 84 bpm Results Name Result Date Reference Range Unit Abnormality Flag ESR/SED RATE ----Sedimentation Rate-Westergren 27 [id number] 0-32 mm/hr CMP ----Globulin, Total 3.0 20150811 1.5-4.5 g/dL ----eGFR If Africn Am 116 [id number] >59 mL/min/1.73 ----eGFR If NonAfricn Am 100 [id number] >59 mL/min/1.73 ----Albumin, Serum 4.3 60324815 3.5-5.5 g/dL ----Sodium, Serum 139 84079061 134-144 mmol/L ----Protein, Total, Serum 7.3 96296649 6.0-8.5 g/dL ----BUN/Creatinine Ratio 10 [id number] 8-20 ----Calcium, Serum 9.4 99155105 8.7-10.2 mg/dL ----AST (SGOT) 19 [id number] 0-40 IU/L ----Glucose, Serum 89 16416732 65-99 mg/dL ----Alkaline Phosphatase, S 68 73788106 39-117 IU/L ----Bilirubin, Total <0.2 59147834 0.0-1.2 mg/dL ----Creatinine, Serum 0.82 66854065 0.57-1.00 mg/dL ----A/G Ratio 1.4 84465544 1.1-2.5 ----BUN 8 20150811 6-20 mg/dL ----Carbon Dioxide, Total 25 [id number] 18-29 mmol/L ----ALT (SGPT) 20 [id number] 0-32 IU/L ----Potassium, Serum 4.0 44791174 3.5-5.2 mmol/L ----Chloride, Serum 100 42378930 97-108 mmol/L ROUTINE VENIPUNCTURE TSH ----TSH 1.990 [id number] 0.450-4.500 uIU/mL Summary Purpose eClinicalWorks Submission
--- OUTSIDE RECORDS SUMMARY | 2018-06-26 17:44 | XMS REPORT ---
Author Author GERBER QUEEN [facility] eClinicalWorks Address Unknown Phone Unavailable Care Team Providers Care Log Cutter Name Role Phone GERBER QUEEN Unavailable Allergies No Known Allergies Problems Problem Type Condition Code Onset Dates Condition Status Problem Bug bites W57.XXXA Active Problem Itching L29.9 Active Problem Encounter for insertion of intrauterine contraceptive device Z30.430 Active Assessment Right ovarian cyst N83.20 Active Medications No Known Medications Results No Known Results Summary Purpose eClinicalWorks Submission
--- OUTSIDE RECORDS SUMMARY | 2018-06-26 17:44 | XMS REPORT ---
Author Author GERBER QUEEN [facility] eClinicalWorks Address Unknown Phone Unavailable Care Team Providers Care Automatic Packer Operator Name Role Phone GERBER QUEEN CP Unavailable Allergies, Adverse Reactions, Alerts Substance Reaction Event Type N.K.D.A. Info Not Available Non Drug Allergy Problems Problem Type Condition Code Onset Dates Condition Status Problem Lumbago M54.5 Active Problem Headache R51 Active Problem Anemia, unspecified D64.9 Active Assessment BMI 27.0-27.9,adult Z68.27 Active Assessment Well woman exam Z01.419 Active Assessment Weight gain R63.5 Active Medications No Known Medications Procedures Procedure Coding System Code Date Preventive Care Est Pt. Age 18-39 CPT-4 11926 Jul 15, 2015 No Charge CPT-4 29105 Jul 15, 2015 Vital Signs Date/Time: Jul 15, 2015 Temperature 98.0 F Weight 150.4 lbs Height 62 in BMI 27.51 Index Blood Pressure Diastolic 70 mmHg Blood Pressure Systolic 110 mmHg Cardiac Monitoring Heart Rate 78 bpm Results No Known Results Summary Purpose eClinicalWorks Submission
--- OUTSIDE RECORDS SUMMARY | 2018-06-26 17:44 | XMS REPORT ---
Author Author HERB WHITFIELD Organization eClinicalWorks Address Unknown Phone Unavailable Care Team Providers Care Public Events Facilities Rental Manager Name Role Phone HERB WHITFIELD CP Unavailable Allergies, Adverse Reactions, Alerts Substance Reaction Event Type N.K.D.A. Info Not Available Non Drug Allergy Problems Problem Type Condition Code Onset Dates Condition Status Problem Itching L29.9 Active Assessment Bug bites W57.XXXA Active Problem Bug bites W57.XXXA Active Assessment Itching L29.9 Active Medications Medication Code System Code Instructions Start Date End Date Status Dosage Vistaril [facility] [address]-88 25 MG Orally every 8 hrs Jul 23, 2015 1 capsule as needed Triamcinolone Acetonide [facility] [address]-95 0.1 % Externally Twice a day Jul 23, 2015 1 application to affected area Procedures Procedure Coding System Code Date Office Visit, Est Pt., Level 3 CPT-4 59985 Jul 23, 2015 Vital Signs Date/Time: Jul 23, 2015 Temperature 98.6 F Weight 151 lbs Height 62 in BMI 27.62 Index Blood Pressure Diastolic 72 mmHg Blood Pressure Systolic 130 mmHg Cardiac Monitoring Heart Rate 80 bpm Results No Known Results Summary Purpose eClinicalWorks Submission
--- OUTSIDE RECORDS SUMMARY | 2018-06-26 17:44 | XMS REPORT ---
Author BIANKA [facility] eClinicalWorks Address Unknown Phone Unavailable Care Team Providers Care Rn Correctional Name Role Phone BIANKA SMITH CP Unavailable Allergies, Adverse Reactions, Alerts Substance Reaction Event Type N.K.D.A. Info Not Available Non Drug Allergy Problems Problem Type Condition Code Onset Dates Condition Status Problem Bug bites W57.XXXA Active Problem Itching L29.9 Active Problem Encounter for insertion of intrauterine contraceptive device Z30.430 Active Assessment Other specified bacterial agents as the cause of diseases classified elsewhere B96.89 Active Assessment Leukorrhea N89.8 Active Assessment Acute vaginitis N76.0 Active Medications Medication Code System Code Instructions Start Date End Date Status Dosage Flagyl [facility] [address]-04 500 MG Orally 2 times a day December 20, 2015December 1 tablet Procedures Procedure Coding System Code Date TRICHOMONAS ASSAY W/OPTIC CPT-4 35243 December 20, 2015 No Charge CPT-4 35344 December 20, 2015 PEARL VAG, DNA, DIR PROBE CPT-4 45206 December 20, 2015 Office Visit, Est Pt., Level 3 CPT-4 07183 December 20, 2015 CULTURE, BACTERIA, OTHER CPT-4 30162 December 20, 2015 Vital Signs Date/Time: December 20, 2015 Temperature 97.6 F Weight 156.8 lbs Height 62 in BMI 28.68 Index Blood Pressure Diastolic 77 mmHg Blood Pressure Systolic 125 mmHg Cardiac Monitoring Heart Rate 82 bpm Results No Known Results Summary Purpose eClinicalWorks Submission
--- OUTSIDE RECORDS SUMMARY | 2018-06-26 17:44 | XMS REPORT ---
Author Author GERBER QUEEN [facility] eClinicalWorks Address Unknown Phone Unavailable Care Team Providers Care Movie Operator Name Role Phone GERBER QUEEN CP Unavailable Allergies, Adverse Reactions, Alerts Substance Reaction Event Type N.K.D.A. Info Not Available Non Drug Allergy Problems Problem Type Condition Code Onset Dates Condition Status Problem Itching L29.9 Active Assessment Encounter for counseling regarding contraception Z30.9 Active Problem Bug bites W57.XXXA Active Medications Medication Code System Code Instructions Start Date End Date Status Dosage Vistaril [facility] [address]-81 25 MG Orally every 8 hrs Jul 23, 2015 1 capsule as needed Triamcinolone Acetonide [facility] [address]-50 0.1 % Externally Twice a day Jul 23, 2015 1 application to affected area Ibuprofen [facility] [address]-60 800 MG Orally Three times a day Aug 11, 2015 Oct 10, 2015 1 tablet Procedures Procedure Coding System Code Date Office Visit, Est Pt., Level 3 CPT-4 12585 Sep 02, 2015 Vital Signs Date/Time: Sep 02, 2015 Temperature 98.4 F Weight 162.2 lbs Height 62 in BMI 29.66 Index Blood Pressure Diastolic 76 mmHg Blood Pressure Systolic 132 mmHg Cardiac Monitoring Heart Rate 76 bpm Results No Known Results Summary Purpose eClinicalWorks Submission
--- OUTSIDE RECORDS SUMMARY | 2018-06-26 17:44 | XMS REPORT ---
Author Author GERBER QUEEN [facility] eClinicalWorks Address Unknown Phone Unavailable Care Team Providers Care Materials Engineer Name Role Phone GERBER QUEEN Unavailable Allergies No Known Allergies Problems Problem Type Condition Code Onset Dates Condition Status Problem Itching L29.9 Active Problem Bug bites W57.XXXA Active Medications No Known Medications Results No Known Results Summary Purpose eClinicalWorks Submission
--- OUTSIDE RECORDS SUMMARY | 2018-06-26 17:45 | XMS REPORT ---
Author Author PABLO PERLA Organization eClinicalWorks Address Unknown Phone Unavailable Care Team Providers Care Engine Manager Name Role Phone PABLO PERLA CP Unavailable Allergies, Adverse Reactions, Alerts Substance Reaction Event Type N.K.D.A. Info Not Available Non Drug Allergy Problems Problem Type Condition Code Onset Dates Condition Status Problem Itching L29.9 Active Assessment Erythema nodosum L52 Active Problem Bug bites W57.XXXA Active Assessment Fatigue R53.83 Active Medications Medication Code System Code Instructions Start Date End Date Status Dosage Balziva [facility] [address]-56 0.4-35 MG-MCG Orally Once a day Jul 26, 2015 1 tablet Vistaril [facility] [address]-87 25 MG Orally every 8 hrs Jul 23, 2015 1 capsule as needed Ibuprofen [facility] [address]-09 800 MG Orally Three times a day Aug 11, 2015 Oct 10, 2015 1 tablet Triamcinolone Acetonide [facility] [address]-24 0.1 % Externally Twice a day Jul 23, 2015 1 application to affected area Procedures Procedure Coding System Code Date HETEROPHILE ANTIBODIES CPT-4 48655 Aug 13, 2015 Office Visit, Est Pt., Level 3 CPT-4 86739 Aug 13, 2015 C-REACTIVE PROTEIN CPT-4 77063 Aug 13, 2015 VENIPUNCT, ROUTINE* CPT-4 72424 Aug 13, 2015 CHEST X-RAY CPT-4 03525 Aug 13, 2015 Vital Signs Date/Time: Aug 13, 2015 Temperature 98.0 F Weight 157.0 lbs Height 62 in BMI 28.71 Index Blood Pressure Diastolic 68 mmHg Blood Pressure Systolic 122 mmHg Cardiac Monitoring Heart Rate 72 bpm Results Name Result Date Reference Range Unit Abnormality Flag ROUTINE VENIPUNCTURE Summary Purpose eClinicalWorks Submission
[2018-06-26 18:13] LABS: BASOPHILS % (AUTO) 0 % (0-10); EOSINOPHILS # (AUTO) 0.3 10^3/uL (0.0-0.3); EOSINOPHILS % (AUTO) 4 % (0-10); HEMATOCRIT 25 % (35-52); HEMOGLOBIN 7.4 G/DL (11.5-16.0); LYMPHOCYTES # (AUTO) 1.8 X 10^3 (1.0-4.0); LYMPHOCYTES % (AUTO) 26 % (12-44); MEAN CORPUSCULAR HEMOGLOBIN 21 PG (25-34); MEAN CORPUSCULAR HGB CONC 29 G/DL (32-36); MEAN CORPUSCULAR VOLUME 71 FL (80-99); MONOCYTES # (AUTO) 0.5 X 10^3 (0.0-1.0); MONOCYTES % (AUTO) 8 % (0-12); NEUTROPHILS # (AUTO) 4.3 X 10^3 (1.8-7.8); NEUTROPHILS % (AUTO) 62 % (42-75); PLATELET COUNT 441 10^3/uL (130-400); RED BLOOD COUNT 3.59 10^6/uL (4.35-5.85); RED CELL DISTRIBUTION WIDTH 19.5 % (10.0-14.5); WHITE BLOOD COUNT 6.9 10^3/uL (4.3-11.0)
[2018-06-26 18:28] LABS: ALANINE AMINOTRANSFERASE 14 U/L (0-55); ALKALINE PHOSPHATASE 60 U/L (40-136); BILIRUBIN,TOTAL 0.2 MG/DL (0.1-1.0); BUN/CREATININE RATIO 11; CALCIUM 9.2 MG/DL (8.5-10.1); CARBON DIOXIDE 21 MMOL/L (21-32); CHLORIDE 107 MMOL/L (98-107); CREATININE SERUM 0.66 MG/DL (0.60-1.30); GFR ESTIMATED > 60; GLUCOSE 80 MG/DL (70-105); POTASSIUM 3.5 MMOL/L (3.6-5.0); SODIUM 138 MMOL/L (135-145); TOTAL PROTEIN 7.5 GM/DL (6.4-8.2)
[2018-06-26 18:34] LABS: BILIRUBIN,URINE NEGATIVE (NEGATIVE); CLARITY,URINE VERY CLOUDY; COLOR,URINE YELLOW; GLUCOSE, URINE (UA) NEGATIVE (NEGATIVE); KETONES,URINE 1+ (NEGATIVE); LEUKOCYTE ESTERASE ,URINE 2+ (NEGATIVE); NITRITE,URINE NEGATIVE (NEGATIVE); PH,URINE 5 (5-9); PROTEIN,URINE 2+ (NEGATIVE); UROBILINOGEN,URINE 1 MG/DL (NORMAL)
[2018-06-26 18:43] LABS: BACTERIA,URINE MODERATE /HPF; SQUAMOUS EPITHELIAL CELL,UR 25-50 /HPF
[2018-06-26 18:44] LABS: CALCIUM OXALATE CRYSTALS,UR LARGE /LPF
--- NOTE | 2018-06-26 19:32 | ED GU-Female ---
General Chief Complaint: -Female Stated Complaint: 17W OB, VAGINAL BLEEDING, LOWER R BACK PAIN Nursing Triage Note: Pt states 17 weeks . Pt c/o vaginal bleeding that began today. Pt states bleeding began as spotting and then "filled toilet with blood." Pt c/o R flank pain. Pt denies recent intercourse. Pt feels movement. Nursing Sepsis Screen: No Definite Risk Source: patient Exam Limitations: no limitations History of Present Illness Date Seen by Provider: Jun 26, 2018 Time Seen by Provider: 18:00 Initial Comments Patient is a 27 year old female who presents to the emergency room with reports of vaginal bleeding that started this afternoon. She had one episode of heavy bleeding but has been spotting ever since. She is [address] Ivan at [facility]. She denies recent intercourse or anything intravaginally. She feels movement on exam and heart tones were normal on exam. Reports low back pain for 1 month. Timing/Duration: this afternoon Severity/Quality: mild Location: other (low back ) Activities at Onset: none Sexual [place] History: single partner Associated Symptoms: lower back pain Allergies and Home Medications Allergies Coded Allergies: No Known Drug Allergies (Unverified , 06/26/18) Home Medications Cephalexin 500 Mg Capsule, 500 MG PO BID Prescribed by: AZUCENA TEIXEIRA on 06/26/182046 Clindamycin HCl 300 Mg Capsule, 300 MG PO BID, (Reported) Patient Home Medication List Home Medication List Reviewed: Yes Review of Systems Review of Systems Constitutional: no symptoms reported, see HPI Genitourinary: see HPI, discharge : Yes All Other Systemes Reviewed Negative Unless Noted: Yes Past Cpkbgar-Hsvell-Byicyv Hx Past Med/Social Hx: Reviewed Nursing Past Med/Soc Hx Patient Social History Alcohol Use: Denies Use Recreational Drug Use: No Smoking Status: Never a Smoker 2nd Hand Smoke Exposure: No Recent Foreign Travel: No Contact w/Someone Who Travel: No Recent Infectious Disease Expo: No Seasonal Allergies Seasonal Allergies: No Past Medical History Surgeries: No Respiratory: No Cardiac: No Neurological: No Genitourinary: No Gastrointestinal: No Musculoskeletal: No Endocrine: No HEENT: No Cancer: No Psychosocial: No Integumentary: No Blood Disorders: No Adverse Reaction/Blood Tranf: No Family Medical History Reviewed Nursing Family Hx Physical Exam Vital Signs Vital Signs - First Documented 06/26/18 17:43 Temp 97.7 Pulse 94 Resp 18 B/P (MAP) 120/75 (90) Pulse Ox 100 O2 Delivery Room Air Capillary Refill : Less Than 3 Seconds Height, Weight, BMI Height: 5'5.00" Weight: 160lbs. oz. 72.256813gw; BMI Method:Stated General Appearance: WD/WN, no apparent distress Neck: non-tender, full range of motion, supple, normal inspection Cardiovascular: normal peripheral pulses, regular rate, rhythm, no edema, no gallop, no JVD, no murmur Respiratory: chest non-tender, lungs clear, normal breath sounds, no respiratory distress, no accessory muscle use, respiratory distress Gastrointestinal: normal bowel sounds, non tender, soft, no organomegaly, no pulsatile mass, abnormal bowel sounds Pelvic: normal external exam, normal adnexa, no cerv. motion tender, no masses , vaginal bleeding (small clot on cervical os on exam . It was removed with cotton swab and no bleeding was noted. The is no cervical dilation. Exam was assisted by Shashank Murphy.) Back: normal inspection, no CVA tenderness, no vertebral tenderness, CVA tenderness (R), CVA tenderness (L) Neurologic/Psychiatric: alert, normal mood/affect, oriented x 3 Skin: normal color, warm/dry Progress/Results/Core Measures Suspected Sepsis Recent Fever Within 48 Hours: No Infection Criteria Present: None New/Unexplained Altered Menta: No Sepsis Screen: No Definite Risk SIRS Temperature:97.7 Pulse: 94 Respiratory Rate: 18 Blood Pressure 120 /75 Mean: 90 Results/Orders Lab Results My Orders Vital Signs/I&O Capillary Refill : Less Than 3 Seconds Blood Pressure Mean: 90 Progress Note : Time: 19:43 Progress Note I have seen and evaluated the patient. I have discussed the case with Dr. Orozco and she recommends a speculum exam to evaluate source of the bleeding versus urinary tract infection. She recommends if the patient is bleeding from her cervix to have complete pelvic rest and treated for urinary tract infection. Departure Impression Primary Impression: Vaginal bleeding before 22 weeks gestation Additional Impression: Urinary tract infection Disposition: 01 HOME, SELF-CARE Condition: Stable/Unchanged Departure-Patient Inst. Decision time for Depature: 20:20 Referrals: BIANKA OROZCO DANIEL J MD (PCP/Family) Primary Care Physician Patient Instructions: IRREGULAR VAGINAL BLEEDING, Urinary Tract Infection, Adult (DC) Add. Discharge Instructions: Take medications as directed. Follow-up with [facility], call first thing in the morning for an appointment time and within no that she was seen in the emergency room. Tylenol as directed by the bottle for pain. Drink lots of clear liquids like water. Return back to the emergency room for any worsening symptoms , worsening vaginal bleeding, or any other concerns as needed. Bedrest as much as possible until you follow up with [facility]. No intercourse or anything intravaginally. All discharge instructions reviewed with patient and/ or family. Voiced understanding. Scripts Cephalexin (Keflex) 500 Mg Capsule 500 MG PO BID for 10 Days, #20 CAP Prov: AZUCENA TEIXEIRA 06/26/18 AZUCENA TEIXEIRA Jun 26, 2018 19:32
[2018-06-26] MEDS ORDERED: CEPH-507 PO (20:47)
[2018-06-26] MEDS ORDERED: CEPHALEXIN 250 MG (KEFLEX) CAP PO ONE (21:00)
[2018-06-26 21:07] VITALS: BP 113/72
[2018-06-29] MEDS ORDERED: CLIN300C11 PO (12:32)
== END 2018-06-26 21:08 | disposition home or self-care (01) ==
LOC: EDUNIT# 17:37 → ER 17:38
DX: O20.9 Hemorrhage in early pregnancy, unspecified (principal); O23.41 Unspecified infection of urinary tract in pregnancy, first trimester; Z3A.17 17 weeks gestation of pregnancy
CPT/HCPCS: 36415; 80053; 81000; 82728; 83540; 84702; 85025; 86900; 86901; 87077; 87088

== ENCOUNTER → 2018-07-25 | Outpatient (CLI) | payer SELFPAY ==
[~2018-07-25] MED LIST: CEPH-507 PO; CLIN300C11 PO
--- NOTE | 2018-07-25 13:53 | Diagnostic Imaging Report ---
INDICATION: Anatomic survey. TECHNIQUE: Multiple real-time grayscale images were obtained over the gravid uterus. COMPARISON: 06/10/2018. FINDINGS: There is a single live fetus in a cephalic presentation. heart rate was recorded at 136 beats per minute. Amniotic fluid index is 15.7 cm. The placenta is posterior. Cervical length is 3.8 cm. survey demonstrates kidneys, bladder and stomach to be unremarkable. brain is unremarkable. There is a four-chamber heart. There is a three-vessel cord with a normal cord insertion. Note is made that there is a nuchal cord present. Spine is unremarkable. Biometrical measurements are as follows: Biparietal 5.4 cm, age 22 weeks 3 days. Head circumference 20.8 cm, age 23 weeks 0 days. Abdominal circumference 18.1 cm, age 23 weeks 0 days. Femur length 4.0 cm, age 22 weeks 6 days. Sonographic estimate age: 22 weeks 6 days. Sonographic estimated date of delivery: 11/24/2018. Estimated Weight: 542 gm (+/- 43 gm). LMP percentile: 58%. heart rate: 136 beats per minute. number: 1 of 1. IMPRESSION: Single live IUP at approximately 22-23 weeks gestational age showing normal interval growth when compared to prior exam. survey is unremarkable although note is made of a nuchal cord. Dictated by: Dictated on workstation # [id number]
== END ==
LOC: RAD 10:20
PROVIDERS: ATTEND Obstetrics & Gynecology
DX: O46.92 Antepartum hemorrhage, unspecified, second trimester (principal); Z3A.22 22 weeks gestation of pregnancy
CPT/HCPCS: 76805

== ENCOUNTER 2018-08-13 09:28 | Outpatient (CLI) | payer OTHER ==
[~2018-08-13] VITALS: Ht 165.1 cm; Wt 71.7 kg
[2018-08-13 08:40] VITALS: BP 117/65
[2018-08-13] MEDS ORDERED: NS IV 500 ML 500 ML IV SCH (09:38)
[2018-08-13] MEDS ORDERED: RT-ALBUTEROL SULF 2.5 MG/3 ML PRE-MIX VIAL IH PRN (09:45)
[2018-08-13] MEDS ORDERED: diphenhydrAMINE 50 MG/ML INJ (BENADRYL) IV PRN (09:45)
[2018-08-13] MEDS ORDERED: HYDROCORTISONE 100 MG/2 ML (Solu-CORTEF) VIAL IV PRN (09:45)
[2018-08-13] MEDS ORDERED: EPINEPHrine INJECTION 1 MG/ML AMP IM PRN (09:45)
[2018-08-13] MEDS ORDERED: IRON DEXTRAN INJECTION 25 MG in NS (IVPB) 5.75 ML IV ONE (09:45)
[2018-08-13] MEDS ORDERED: IRON DEXTRAN INJECTION 1,000 MG in NS (IVPB) 250 ML IV ONE (09:45)
== END 2018-08-13 15:20 | disposition home or self-care (01) ==
LOC: SDC 09:28
PROVIDERS: ATTEND Obstetrics & Gynecology
DX: D50.9 Iron deficiency anemia, unspecified (principal)

== ENCOUNTER → 2018-09-27 | Outpatient (CLI) | payer OTHER ==
--- NOTE | 2018-09-27 13:17 | Diagnostic Imaging Report ---
US FOLLOW UP EA FETUS [id number] TECHNIQUE: Limited transabdominal sonographic imaging of the gravid uterus was performed. INDICATION: Followup nuchal cord seen on prior ultrasound. COMPARISON: 07/25/2018. FINDINGS: Placenta is posterior in location and there is no previa. Fetus is in cephalic presentation. The heart rate is 130 beats per minute. CHAD is normal at 10.1 cm. The umbilical cord is seen along the anterior aspect of the neck but does not circumferentially encase the neck. IMPRESSION: 1. No nuchal cord on today's examination. The umbilical cord is anterior to the neck but does not have circumferential encasement. Dictated by: Dictated on workstation # [id number]
== END ==
LOC: RAD 09:36
PROVIDERS: ATTEND Obstetrics & Gynecology
DX: O44.43 Low lying placenta NOS or without hemorrhage, third trimester (principal); O99.013 Anemia complicating pregnancy, third trimester; Z3A.00 Weeks of gestation of pregnancy not specified
CPT/HCPCS: 76816

== ENCOUNTER 2018-11-10 08:14 | Inpatient (IN) | payer OTHER ==
[2018-11-10] VITALS (42 sets, daily range): BP systolic 106–151; BP diastolic 55–90
[~2018-11-10] VITALS: Ht 165.1 cm; Wt 77.8 kg
--- NOTE | 2018-11-10 08:25 | NUR ---
LEN BARBOSA presented to unit from ED, accompanied by Significant Other, with c/o LABOR. LEN BARBOSA weighed, gowned, voided, and to bed. EFHM and TOCO applied, VS taken. LEN BARBOSA oriented to bed controls, call light, TV, heat, and A/C controls.
--- NOTE | 2018-11-10 08:45 | NUR ---
Dr. Baig notified of patient's arrival, complaints, and exam. New orders received.
--- NOTE | 2018-11-10 09:30 | NUR ---
Dr. Baig here to see patient.
[2018-11-10] MEDS ORDERED: OXYTOCIN/NORMAL SALINE 500 ML IV SCH ×3 (09:36→18:40)
[2018-11-10] MEDS ORDERED: D5 LR IV SOLUTION 1,000 ML IV SCH (09:36)
[2018-11-10 09:45] LABS: BASOPHILS % (AUTO) 0 % (0-10); EOSINOPHILS # (AUTO) 0.2 10^3/uL (0.0-0.3); EOSINOPHILS % (AUTO) 3 % (0-10); HEMATOCRIT 31 % (35-52); HEMOGLOBIN 10.1 G/DL (11.5-16.0); LYMPHOCYTES # (AUTO) 1.3 X 10^3 (1.0-4.0); LYMPHOCYTES % (AUTO) 15 % (12-44); MEAN CORPUSCULAR HEMOGLOBIN 27 PG (25-34); MEAN CORPUSCULAR HGB CONC 32 G/DL (32-36); MEAN CORPUSCULAR VOLUME 82 FL (80-99); MEAN PLATELET VOLUME 9.7 FL (7.4-10.4); MONOCYTES # (AUTO) 0.6 X 10^3 (0.0-1.0); MONOCYTES % (AUTO) 7 % (0-12); NEUTROPHILS # (AUTO) 6.7 X 10^3 (1.8-7.8); NEUTROPHILS % (AUTO) 75 % (42-75); PLATELET COUNT 259 10^3/uL (130-400); RED CELL DISTRIBUTION WIDTH 18.5 % (10.0-14.5); WHITE BLOOD COUNT 8.9 10^3/uL (4.3-11.0)
[2018-11-10] MEDS ORDERED: MINERAL OIL CONCENTRATE 99.9% 15 ML UDC TOP PRN (09:45)
--- NOTE | 2018-11-10 10:24 | History & Physical-OB ---
OB - Chief Complaint & HPI Date/Time Date of Admission: Date of Admission: 11/10/18 Date seen by a Provider: Dec 03, 2018 Time Seen by a Provider: 08:45 Chief Complaint/History OB-Reason for Admission/Chief: Rupture of Membranes (SROM at 0630) Hx : 2 Hx Para: 1 Expected Date of Delivery: Nov 22, 2018 Gestational Age in Weeks: 38 Gestational Age in Days: 0 Other reason for admission: Patient presents with complaint of SROM. complicated by severe anemia requiring IV Iron this . Admission Nurse Assessment Rev: Yes History of Labs o+/neg VDRL NR HIV - HBSAg - Hep C- Rub I GBS- Most recent Hgb 10.1 Allergies and Home Medications Allergies Coded Allergies: No Known Drug Allergies (Unverified , 06/26/18) Home Medications Acetaminophen 500 Mg Tablet, 1,000 MG PO Q8H Prescribed by: MARIELENA RUIZ on 11/12/18 0240 Ferrous Sulfate 325 Mg Tablet, 325 MG PO DAILY, (Reported) Ibuprofen 600 Mg Tablet, 600 MG PO Q6H Prescribed by: MARIELENA RUIZ on 11/12/18 0240 Vit W-Ca,Fe,FA(<1 mg) 1 Each Tablet, 1 EACH PO DAILY, (Reported) Patient Home Medication List Home Medication List Reviewed: Yes OB - History Hx of Present Care: Yes Ultrasounds: Normal mid trimester US Obstetrical Complications: None Medical Complications: Other (iron deficiency anemia) Information Induced Hypertension: No Maternal Gestational Diabetes: No Hemorrhage: No Obstetrical History Hx : 2 Hx Para: 1 Hx # Term Pregnancies: 1 Hx # Pregnancies: 0 Number of Living Children: 1 Hx Multiple Gestation: No Delivery History Hx Dystocia: No Adverse Rxn to Tranfusion: No Patient Past Medical History Iron def anemia Social History/Family History HIV/AIDS: No Recent Infectious Disease Expo: No Sexually Transmitted Disease: No Alcohol Use: Denies Use Recreational Drug Use: No Smoking Cessation: Never smoker 2nd Hand Smoke Exposure: No Immunizations Tetanus Booster (TDap): Less than 5yrs (09/11/18) Rubella: immune RPR/VDRL: Negative GBS Status: Negative HBsAG: Negative OB - Admission Exam Physical Exam Vitals: 130/76 97.9 HEENT: TMs Normal Heart: Rhythm Normal Lungs: Clear, Crackles Abdomen: Gravid Extremities: Normal Reflexes: Normal Cervical Dilatation: 3cm Effacement: 50% Station: Ballotable Membranes: Ruptured Amniotic Fluid: Clear Heart Rate: 140's Accelerations: Accelerations Present Decelerations: No Decelerations Short Term Variability: Present Group Home Variability: Average (6-25) Contractions on Admission: >10 Minutes Apart Labs Laboratory Tests Test 11/10/18 09:00 Range/Units White Blood Count 8.9 4.3-11.0 10^3/uL Red Blood Count 3.80 L 4.35-5.85 10^6/uL Hemoglobin 10.1 L 11.5-16.0 G/DL Hematocrit 31 L 35-52 % Mean Corpuscular Volume 82 80-99 FL Mean Corpuscular Hemoglobin 27 25-34 PG Mean Corpuscular Hemoglobin Concent 32 32-36 G/DL Red Cell Distribution Width 18.5 H 10.0-14.5 % Platelet Count 259 130-400 10^3/uL Mean Platelet Volume 9.7 7.4-10.4 FL Neutrophils (%) (Auto) 75 42-75 % Lymphocytes (%) (Auto) 15 12-44 % Monocytes (%) (Auto) 7 0-12 % Eosinophils (%) (Auto) 3 0-10 % Basophils (%) (Auto) 0 0-10 % Neutrophils # (Auto) 6.7 1.8-7.8 X 10^3 Lymphocytes # (Auto) 1.3 1.0-4.0 X 10^3 Monocytes # (Auto) 0.6 0.0-1.0 X 10^3 Eosinophils # (Auto) 0.2 0.0-0.3 10^3/uL Basophils # (Auto) 0.0 0.0-0.1 10^3/uL OB - Assessment/Plan/Diagnosis Assessment Assessment: rupture of membranes Admission Dx Rupture of membranes at 38 weeks Plan - Admit for labor Augmentation as needed. Epidural if necessary. Peds - Kenneth Admission Status: Inpatient Order (span 2 midnights) Reason for Inpatient Admission: labor MARIELENA RUIZ DO Nov 10, 2018 10:24
--- OUTSIDE RECORDS SUMMARY | 2018-11-10 10:41 | XMS REPORT ---
Author Author BIANKA SMITH [facility] Address [address] [place] [address] Care Team Providers Care Core Oven Tender Name Role Phone BIANKA SMITH Unavailable PROBLEMS Type Condition ICD9-CM Code EVP65-MU Code Onset Dates Condition Status SNOMED Code Problem Microcytic anemia D50.9 Active 890085995 Problem Encounter for insertion of intrauterine contraceptive device Z30.430 Active 21070459 Problem Bug bites W57.XXXA Active 139238973 Problem Itching L29.9 Active 082236086 ALLERGIES No Information ENCOUNTERS Encounter Location Date Diagnosis [facility] [id number] [place] [address] 86238- 6737 Jun, [facility] [id number] [place] [address] 97544 -7518 May, [facility] [address] 56898- 9255 May, care in second trimester Z34.92 [facility] [id number] [place] [address] 27968- 6656 May, Microcytic anemia D50.9 [facility] [address] 03033- 8574 May, Microcytic anemia D50.9 [facility] [id number] [place] [address] 79685- 6210 Apr, Multigravida in first trimester Z34.81 and Normal in multigravida Z34.80 [facility] [id number] [place] [address] 54835- 2250 Apr, [facility] [address] 18112- 2168 14 Apr, 2018 [facility] [id number] [place] [address]- 8936 Apr, [facility] [id number] [place] [address] 41458- 6852 07 Apr, 2018 Encounter for test Z32.00 [facility] [id number] [place] [address] 87077 -9227 Feb, Irritant contact dermatitis due to other chemical products L24.5 [facility] [id number] [place] [address] 18359- 3456 Feb, Frequent headaches R51 [facility] [place] [id number] [place] [address] 25794 -0022 Feb, Frequent headaches R51 [facility] [place] [id number] [place] [address] 01682 -5397 Aug, Other viral agents as the cause of diseases classified elsewhere B97.89 and Acute upper respiratory infection, unspecified J06.9 [place] [address] [place] [address] 70654- 1055 Feb, Pyelonephritis N12 [place] [id number] [place] [address] 42447- 0814 Nov, Leukorrhea N89.8 ; Acute vaginitis N76.0 and Other specified bacterial agents as the cause of diseases classified elsewhere B96.89 [place] [address] [place] [address] 28029- 3796 Oct, Right ovarian cyst N83.20 [place] [id number] [address]- 0000 Sep, [place] [id number] [place] [address] 91477- 8047 Aug, [place] [address] [place] [address] 89262- 1495 Aug, Right ovarian cyst N83.20 [place] [id number] [place] [address] 80085- 1700 11 Aug, 2015 Encounter for insertion of intrauterine contraceptive device Z30.[address] 44759- 9016 07 Aug, 2015 Encounter for counseling regarding contraception Z30.[address] 38521- 8061 04 Aug, [address] 40445- 0700 18 Jul, 2015 Well woman exam Z01.419 ; Weight gain R63.5 and BMI 27.0- 27.9,adult Z68.[address] 95152- 9937 18 Jul, 2015 Erythema nodosum L52 and Fatigue R53.[address] 81973- 6061 16 Jul, 2015 Erythema nodosum L52 [address] 06386- 9569 30 Jun, 2015 General counseling and advice for contraceptive management Z30.09 and OCP (oral contraceptive pills) initiation Z30.[address] 32505- 7397 27 Jun, 2015 Bug bites W57.XXXA and Itching L29.[address] 76450- 3131 19 Jun, 2015 Well woman exam Z01.419 ; Weight gain R63.5 and BMI 27.0- 27.9,adult Z68.[address] 99983- 3548 27 May, 2015 Ankle pain, left M25.572 [facility] [place] [facility] [address] [id number] December, Dental examination V72.2 [facility] [place] [facility] [address] [id number] [place] [id number] December, Dental examination V72.2 [facility] [place] [facility] [address] [id number] [place] [address]- 1722 Nov, [facility] [place] [facility] [address] [id number] [place] [address]- 6970 Nov, [facility] [place] [facility] [address] [id number] [place] [address]- 5190 Sep, 2014 [facility] [place] [facility] [address] [id number] [place] [address]- 3734 Sep, 2014 [facility] [place] [facility] [address] [id number] [place] [address]- 7[address] Sep, [facility] [place] [facility] [address] [facility] [id number] [place] [address]- 0987 Sep, [facility] [place] [facility] [address] [id number] [place] [address]- 6634 Jun, [facility] [place] [facility] [address] [id number] [place] [address]- 4253 Jun, [facility] [place] [facility] [address] [facility] [id number] [place] [address]- 2774 May, [facility] [place] [facility] [address] [facility] [id number] [place] [address]- 3161 May, [facility] [place] [facility] [address] [id number] [place] [address]- 6452 Apr, [facility] [place] [facility] [address] [id number] [place] [address]- 7197 Apr, [facility] [place] [facility] [address] [id number] [place] [address]- 4640 Apr, [facility] [place] [facility] [address] [id number] [place] [address]- 2993 Apr, [facility] [place] [facility] [address] [id number] [place] [address]- 1163 Mar, [facility] [place] [facility] [address] [id number] [place] [address]- 6945 Mar, [facility] [place] [facility] [address] [id number] [place] [address]- 1926 December, [facility] [place] [facility] [address] [id number] [place] [address]- 6184 December, [facility] [place] [facility] [address] [id number] [place] [address]- 4668 Nov, [facility] [place] [facility] [address] [id number] [place] [address]- 7651 Nov, [facility] [place] [facility] [address] [id number] [place] [address]- 6817 Sep, [facility] [place] [facility] [address] [id number] [place] [address]- 6042 Sep, [facility] [place] [facility] [address] [id number] [place] [address]- 2873 Sep, [facility] [place] [facility] [address] [id number] [place] [address]- 7367 Sep, [facility] [place] [facility] [address] [facility] [id number] [place] [address]- 8306 Sep, [facility] [place] [facility] [address] [id number] [place] [address]- 6960 Sep, [facility] [place] [facility] [address] [id number] [place] [address]- 9187 Aug, [facility] [place] [facility] [address] [id number] [place] [address]- 0418 Aug, [facility] [place] [facility] [address] [id number] [place] [address]- 7530 Aug, [facility] [place] [facility] [address] [id number] [place] [address]- 3340 Aug, [facility] [place] [facility] [address] [id number] [place] [address]- 5658 Aug, [facility] [address] [id number] [place] [address]- 3410 Aug, [facility] [address] [id number] [place] [address]- 2422 Aug, [facility] [address] [id number] [place] [address]- 2161 Aug, [facility] [address] [id number] [place] [address]- 4009 Jun, [facility] [address] [id number] [place] [address]- 0916 Jun, [facility] [address] [id number] [place] [address]- 3804 Jan, [facility] [address] [id number] [place] [address]- 2252 Jan, [facility] [address] [id number] [place] [address]- 2641 Oct, [facility] [address] [id number] [place] [address]- 4691 Oct, [facility] [address] [id number] [place] [address]- 3301 Oct, [facility] [address] [id number] [place] [address]- 8587 Oct, [facility] [place] [facility] [address] [id number] [place] [address]- 7563 Oct, [facility] [place] [facility] [address] [id number] [place] [address]- 4666 Sep, [facility] [place] [facility] [address] [id number] [place] [address]- 1964 Sep, [facility] [place] [facility] [address] [id number] [place] [address]- 2546 Sep, [facility] [address] [facility] [id number] [place] [address]- 2546 May, [facility] [address] [facility] [id number] [place] [address]- 2546 May, [facility] [address] [facility] [id number] [place] [address]- 2546 May, [facility] [address] [id number] [place] [address]- 2546 Jan, [facility] [address] [facility] [id number] [place] [address] 2546 Aug, IMMUNIZATIONS No Known Immunizations SOCIAL HISTORY Never Assessed REASON FOR VISIT Triage-OB pt bleeding Tom Batista states she is 18 weeks, has no pain- had lots of bright red bleeding today. States she can feel herself bleeding, like she is having discharge. Discussed with tom Iyer probably needs stat labs / ultrasound advised ER assessment at this time. PLAN OF CARE VITAL SIGNS MEDICATIONS Unknown Medications RESULTS No Results PROCEDURES No Known procedures INSTRUCTIONS MEDICATIONS ADMINISTERED No Known Medications MEDICAL (GENERAL) HISTORY Type Description Date Surgical History No know Surgical history Hospitalization History childbirth 2008
--- OUTSIDE RECORDS SUMMARY | 2018-11-10 10:41 | XMS REPORT ---
Author Author SYLVESTER YOUNG Organization [facility] Address [address] [place] [address] Care Team Providers Care Casino Host Name Role Phone SYLVESTER YOUNG Unavailable PROBLEMS Type Condition ICD9-CM Code PRB16-KY Code Onset Dates Condition Status SNOMED Code Problem Microcytic anemia D50.9 Active 124515238 Problem Encounter for insertion of intrauterine contraceptive device Z30.430 Active 40248132 Problem Bug bites W57.XXXA Active 556066969 Problem Itching L29.9 Active 613573766 ALLERGIES No Information ENCOUNTERS Encounter Location Date Diagnosis [facility] [address] [address]- [address]79 Jun, [facility] [address] 7[address]10 -2408 May, [facility] [address] 53838- 7750 May, care in second trimester Z34.92 [facility] [id number] [place] [address] 29880- 1870 May, Microcytic anemia D50.9 [facility] [address] 37690- 3952 May, Microcytic anemia D50.9 [facility] [id number] [place] [address] 44631- 3851 26 Apr, 2018 Multigravida in first trimester Z34.81 and Normal in multigravida Z34.80 [facility] [id number] [place] [address] 46813- 4131 20 Apr, 2018 [facility] [address] 32535- 4365 14 Apr, 2018 [facility] [address] [place] [address] 42876- 6861 Apr, [facility] [id number] [place] [address] 13534- 6956 07 Apr, 2018 Encounter for test Z32.00 [facility] [id number] [place] [address] 85756 -4732 Feb, Irritant contact dermatitis due to other chemical products L24.5 [place] [id number] [place] [address] 62123- 9973 Feb, Frequent headaches R51 [facility] [id number] [place] [address] 44850 -5681 Feb, Frequent headaches R51 [facility] [place] [id number] [place] [address] 75369 -9607 Aug, Other viral agents as the cause of diseases classified elsewhere B97.89 and Acute upper respiratory infection, unspecified J06.9 [place] [address] [place] [address] 97032- 8445 Feb, Pyelonephritis N12 [place] [id number] [place] [address] 00985- 0250 Nov, Leukorrhea N89.8 ; Acute vaginitis N76.0 and Other specified bacterial agents as the cause of diseases classified elsewhere B96.89 [place] [address] [place] [address] 12022- 1588 Oct, Right ovarian cyst N83.20 [place] [id number] [place] [address] 86820- 0127 Sep, [place] [id number] [place] [address] 79675- 1444 Aug, [place] [id number] [place] [address] 14381- 5747 Aug, Right ovarian cyst N83.20 [place] [address] 65341- 9707 11 Aug, 2015 Encounter for insertion of intrauterine contraceptive device Z30.430 [place] [address] 71094- 5935 07 Aug, 2015 Encounter for counseling regarding contraception Z30.[address] 24478- 6473 04 Aug, 2015 [place] [address] 69723- 3631 18 Jul, 2015 Well woman exam Z01.419 ; Weight gain R63.5 and BMI 27.0- 27.9,adult Z68.[address] 55633- 4198 18 Jul, 2015 Erythema nodosum L52 and Fatigue R53.[address] 57168- 1949 16 Jul, 2015 Erythema nodosum L52 [address] 26702- 0496 30 Jun, 2015 General counseling and advice for contraceptive management Z30.09 and OCP (oral contraceptive pills) initiation Z30.[address] 87775- 2047 27 Jun, 2015 Bug bites W57.XXXA and Itching L29.[address] 06467- 6965 19 Jun, 2015 Well woman exam Z01.419 ; Weight gain R63.5 and BMI 27.0- 27.9,adult Z68.[address] 87374- 9476 27 May, 2015 Ankle pain, left M25.572 [facility] [address] [id number] December, Dental examination V72.2 [facility] [place] [facility] [address] [id number] [id number] December, Dental examination V72.2 [facility] [place] [facility] [address] [id number] [place] [address]- 9567 Nov, [facility] [place] [facility] [address] [id number], [place] [address]- 4911 Nov, [facility] [place] [facility] [address] [id number], [place] [address]- 9208 Sep, [facility] [place] [facility] [address] [id number] [place] [address]- 6512 Sep, [facility] [place] [facility] [address] [id number], [place] [address]- 2032 Sep, [facility] [address] [id number], [place] [address]- 3577 Sep, [facility] [address] [id number], [place] [address]- 6492 Jun, [facility] [place] [facility] [address] [id number], [place] [address]- 3981 Jun, [facility] [address] [facility] [id number], [place] [address]- 8357 May, [facility] [place] [facility] [address] [id number], [place] [address]- 6624 May, [facility] [place] [facility] [address] [id number], [place] [address]- 6038 Apr, [facility] [place] [facility] [address] [id number], [place] [address]- 9860 Apr, [facility] [place] [facility] [address] [id number], [place] [address]- 6059 Apr, [facility] [place] [facility] [address] [id number], [place] [address]- 2531 Apr, [facility] [place] [facility] [address] [id number] [place] [address]- 6550 Mar, [facility] [place] [facility] [address] [id number] [place] [address]- 3072 Mar, [facility] [place] [facility] [address] [id number] [place] [address]- 2705 December, [facility] [place] [facility] [address] [id number] [place] [address]- 3822 December, [facility] [place] [facility] [address] [id number] [place] [address]- 4920 Nov, [facility] [place] [facility] [address] [id number] [place] [address]- 5690 Nov, [facility] [place] [facility] [address] [id number] [place] [address]- 4302 Sep, [facility] [place] [facility] [address] [id number] [place] [address]- 1275 Sep, [facility] [place] [facility] [address] [id number] [place] [address]- 2906 Sep, [facility] [place] [facility] [address] [id number] [place] [address]- 1196 Sep, [facility] [place] [facility] [address] [id number] [place] [address]- 1485 Sep, [facility] [place] [facility] [address] [id number] [place] [address]- 7125 Sep, [facility] [place] [facility] [address] [id number] [place] [address]- 1389 Aug, [facility] [place] [facility] [address] [id number] [place] [address]- 8259 Aug, [facility] [place] [facility] [address] [id number] [place] [address]- 4305 Aug, [facility] [place] [facility] [address] [id number] [place] [address]- 8862 Aug, [facility] [address] [id number] [place] [address]- 4514 Aug, [facility] [place] [facility] [address] [id number] [place] [address]- 6094 Aug, [facility] [place] [facility] [address] [id number] [place] [address]- 0996 Aug, [facility] [place] [facility] [address] [id number] [place] [address]- 8622 Aug, [facility] [place] [facility] [address] [id number] [place] [address]- 5038 Jun, [facility] [place] [facility] [address] [id number] [place] [address]- 0122 Jun, [facility] [place] [facility] [address] [id number] [place] [address]- 6672 Jan, [facility] [place] [facility] [address] [id number] [place] [address]- 3928 Jan, [facility] [place] [facility] [address] [id number] [place] [address]- 3563 Oct, [facility] [place] [facility] [address] [id number] [place] [address]- 1789 Oct, [facility] [place] [facility] [address] [id number] [place] [address]- 6894 Oct, [facility] [place] [facility] [address] [id number] [place] [address]- 8888 Oct, [facility] [place] [facility] [address] [id number] [place] [address]- 8847 Oct, [facility] [place] [facility] [address] [id number] [place] [address]- 3286 Sep, [facility] [place] [facility] [address] [id number] [place] [address]- 4799 Sep, [facility] [place] [facility] [address] [facility] [id number], [place] [address]- 8313 Sep, [facility] [address] [facility] [id number], [place] [address]- 9374 May, [facility] [address] [id number], [place] [address]- 4985 May, [facility] [address] [id number], [place] [address]- 6714 May, [facility] [address] [id number]- 2255 Jan, [facility] [address] [id number] 1535 Aug, IMMUNIZATIONS No Known Immunizations SOCIAL HISTORY Never Assessed REASON FOR VISIT OB 4wk f/u -- tammy blanton PLAN OF CARE Activity Details Follow Up 4 Weeks Reason: Pending Test UA OB DIP (IN HOUSE) VITAL SIGNS Height 62 in 2018-06-19 Weight 151.4 lbs 2018-06-19 Temperature 97.8 degrees Fahrenheit 2018-06-19 Heart Rate 78 bpm 2018-06-19 Respiratory Rate 20 2018-06-19 BMI 27.691 kg/m2 2018-06-19 Blood pressure systolic 118 mmHg 2018-06-19 Blood pressure diastolic 76 mmHg 2018-06-19 MEDICATIONS Medication Instructions Dosage Frequency Start Date End Date Duration Status Propranolol HCl 40 mg Orally Twice a day 1 tablet 12h Feb, 30 day(s) Not-Taking Active Cranberry Active Ferrous Sulfate 325 (65 Fe) MG Orally Once a day 1 tablet 24h May, 30 day(s) Active RESULTS No Results PROCEDURES Procedure Date Ordered Result Body Site URINE-NO MICRO Jun 19, 2018 INSTRUCTIONS MEDICATIONS ADMINISTERED No Known Medications MEDICAL (GENERAL) HISTORY Type Description Date Surgical History No know Surgical history Hospitalization History childbirth 2008
[2018-11-10] MEDS ORDERED: LACTATED RINGERS 1,000 ML IV ONE (11:15)
[2018-11-10] MEDS ORDERED: SUFENTA 0.6MCG/ML BUPIVA 0.125 100 ML ONE (12:37)
[2018-11-10 12:55] LABS: CLARITY,URINE VERY CLOUDY; COLOR,URINE YELLOW; GLUCOSE, URINE (UA) NEGATIVE (NEGATIVE); KETONES,URINE 1+ (NEGATIVE); LEUKOCYTE ESTERASE ,URINE 3+ (NEGATIVE); NITRITE,URINE NEGATIVE (NEGATIVE); PH,URINE 5 (5-9); PROTEIN,URINE 2+ (NEGATIVE); UROBILINOGEN,URINE NORMAL (NORMAL)
[2018-11-10] MEDS ORDERED: fentaNYL INJECTION 100 MCG/2 ML AMP ONE (12:59)
[2018-11-10] MEDS ORDERED: BUPIVACAINE 0.25% 30 ML (SENSORCAINE) VIAL ONE (12:59)
[2018-11-10 13:08] LABS: BACTERIA,URINE FEW /HPF; BILIRUBIN,URINE 1+ (NEGATIVE); WBC,URINE TNTC /HPF
--- NOTE | 2018-11-10 13:09 | NUR ---
Lisa Boogie PATIENT CARE TECHNICIAN here for epidural placement. Procedure explained, consent reviewed and signed by anesthesia. Questions answered to patient's satisfaction. Time out taken to verify correct patient/procedure. Patient up to side of bed, assisted into sitting position. Betadine prep done x3 and sterile drape applied. Local done, see anesthesia record. Test dose given, see anesthesia record for drug and dosage. Epidural catheter secured in place. Epidural placement complete. Assisted back into bed, monitors adjusted. Epidural dosed, see anesthesia record. Epidural of Sufenta/Bupivicaine @ 12 cc/hr stated per pump. Patient tolerated procedure well.
[2018-11-10] MEDS ORDERED: NALOXONE 0.4 MG/ML 1 ML (NARCAN) VIAL IV PRN ×2 (13:30)
[2018-11-10] MEDS ORDERED: LACTATED RINGERS 1,000 ML IV SCH (13:30)
[2018-11-10] MEDS ORDERED: METOCLOPRAMIDE INJ 10 MG/2 ML (REGLAN) IV PRN (13:30)
[2018-11-10] MEDS ORDERED: EPIDURAL (SUFENTA 0.6MCG/ML BUPIVA 0.125%) 100 ML BAG EPI PRN (13:30)
[2018-11-10] MEDS ORDERED: diphenhydrAMINE 50 MG/ML INJ (BENADRYL) IV PRN (13:30)
[2018-11-10] MEDS ORDERED: ONDANSETRON 4 MG/2 ML (SDV) Z0FRAN IV PRN (13:30)
[2018-11-10] MEDS: CATHETER FLUSH 10 ML SYR IV SCH ×2 (15:52→22:27)
[2018-11-10] MEDS ORDERED: FERR-84 PO (16:10)
[2018-11-10] MEDS ORDERED: PREN1TAB79 PO (16:10)
[2018-11-10] MEDS ORDERED: LIDOCAINE/EPI 2% 1:200,00 (XYLOCAINE) 10 ML VIAL ONE (18:12)
--- NOTE | 2018-11-10 18:40 | OB Labor & Delivery Record ---
Vag Delivery Note Vag Delivery Note Date of Delivery: 11/10/18 Preoperative Diagnosis: Chiquita Bryan is a 27 /Para 2 /1 ,Gestational Age 38 2/7 weeks with SROM Postoperative Diagnosis: Same, cervical nodular lesions Surgeon: MARIELENA RUIZ Anesthesia: epidural Delivery Type: vaginal Findings: Viable female infant, apgars 9/9, weight pending Lacerations: none Intact placenta with 3 vessel cord. No nuchal cord, body cord or shoulder dystocia Estimated Blood Loss: 200 ml Complications: None Condition: Stable Description of Procedure: The patient is a 27 /Para 2 /1 ,Gestational Age 38 2/7 weeks with SROM. She was admitted and informed consent was obtained. Her labor course was remarkable for augmentation with Pitocin. She progressed to complete dilatation and began to push. She was then set up for delivery. The 's head was delivered atraumatically in the KATHY position. The shoulders and remainder of the 's body were then delivered without difficulty. Upon delivery, the head was held below the level of the perineum and the mouth and nares were bulb suctioned. The cord was doubly clamped and cut and the infant was handed off to the pediatric staff. An intact placenta with 3-vessel cord delivered via Xavi and there was found to be minimal bleeding.~ Vigorous fundal massage was performed and the fundus was found to be firm. IV oxytocin was given. Examination of the vagina and perineum revealed no laceration. I did palpate 2 small nodular lesions on the cervix that came off in my hand. These were fleshy and less than 1 cm. I sent these for pathology. Following the delivery , sponge, instrument and needle counts were correct. Mom and baby were both in stable condition in the labor suite. Vitals - Labs Vital Signs - I&O Vital Signs Date Time Temp Pulse Resp B/P (MAP) Pulse Ox O2 Delivery O2 Flow Rate FiO2 11/10/18 16:15 97.3 86 16 133/80 (97) 98 Room Air 11/10/18 16:00 87 16 123/60 (81) 97 Room Air 11/10/18 15:45 93 16 122/71 (88) 97 Room Air 11/10/18 15:30 89 16 97 Room Air 11/10/18 15:15 97.7 82 16 125/63 (83) 97 Room Air 11/10/18 15:00 84 16 108/61 (77) 97 Room Air 11/10/18 14:45 75 16 106/55 (72) 96 Room Air 11/10/18 14:30 85 16 106/56 (73) 98 Room Air 11/10/18 14:15 81 16 115/61 (79) 97 Room Air 11/10/18 14:00 87 16 98 Room Air 11/10/18 13:45 77 16 127/68 (87) 97 Room Air 11/10/18 13:30 98.0 92 16 113/68 (83) 97 Room Air 11/10/18 13:18 91 16 130/62 (84) 98 Room Air 11/10/18 13:15 81 16 122/71 (88) 96 Room Air 11/10/18 13:15 11/10/18 13:14 76 16 117/67 (84) 98 Room Air 11/10/18 13:13 76 16 121/70 (87) 97 Room Air 11/10/18 13:12 86 16 128/77 (94) 98 Room Air 11/10/18 13:09 75 16 126/77 (93) 98 Room Air 11/10/18 13:00 70 16 121/73 (89) 97 Room Air 11/10/18 12:45 98.0 81 16 131/68 (89) 98 Room Air 11/10/18 12:30 87 16 117/73 (88) Room Air 11/10/18 12:15 86 16 127/75 (92) Room Air 11/10/18 12:00 86 16 118/72 (87) Room Air 11/10/18 11:45 77 16 119/70 (86) Room Air 11/10/18 11:30 83 16 124/81 (95) Room Air 11/10/18 11:00 81 16 115/72 (86) Room Air 11/10/18 10:30 72 16 116/71 (86) Room Air 11/10/18 10:00 82 16 117/73 (88) Room Air 11/10/18 09:30 96 16 117/66 (83) Room Air 11/10/18 09:00 101 16 116/72 (87) Room Air 11/10/18 08:34 97.9 93 16 130/76 (94) Room Air Labs Laboratory Tests 11/10/18 08:50: Urine Color YELLOW, Urine Clarity VERY CLOUDYH, Urine pH 5, Urine Specific [place] 1.025H, Urine Protein 2+H, Urine Glucose (UA) NEGATIVE, Urine Ketones 1+ H, Urine Nitrite NEGATIVE, Urine Bilirubin 1+H, Urine Urobilinogen NORMAL, Urine Leukocyte Esterase 3+H, Urine RBC (Auto) 5+H, Urine RBC 5-10H, Urine WBC TNTCH, Urine Squamous Epithelial Cells 10-25H, Urine Crystals NONE, Urine Bacteria FEWH, Urine Casts NONE, Urine Mucus NEGATIVE, Urine Culture Indicated YES 11/10/18 09:00: White Blood Count 8.9, Red Blood Count 3.80L, Hemoglobin 10.1L, Hematocrit 31L, Mean Corpuscular Volume 82, Mean Corpuscular Hemoglobin 27, Mean Corpuscular Hemoglobin Concent 32, Red Cell Distribution Width 18.5H, Platelet Count 259, Mean Platelet Volume 9.7, Neutrophils (%) (Auto) 75, Lymphocytes (%) (Auto) 15, Monocytes (%) (Auto) 7, Eosinophils (%) (Auto) 3, Basophils (%) (Auto) 0, Neutrophils # (Auto) 6.7, Lymphocytes # (Auto) 1.3, Monocytes # (Auto) 0.6, Eosinophils # (Auto) 0.2, Basophils # (Auto) 0.0 MARIELENA RUIZ DO Nov 10, 2018 18:40
[2018-11-10] MEDS ORDERED: WITCH HAZEL(TUCKS) 40 EA JAR TOP PRN (18:45)
[2018-11-10] MEDS ORDERED: TETANUS,DIPTH,PERTUSS P/F (BOOSTRIX) 0.5 ML VIAL IM ONE (18:45)
[2018-11-10] MEDS ORDERED: DIBUCAINE (NUPERCAINAL) 1% OINT 30 GM TOP PRN (18:45)
[2018-11-10] MEDS ORDERED: MEASLES,MUMPS,RUBELLA 1 EA INJ SQ ONE (18:45)
[2018-11-10] MEDS ORDERED: BENZOCAINE/MENTHOL (DERMOPLAST) 56 ML CAN TP PRN (18:45)
--- NOTE | 2018-11-10 19:10 | NUR ---
Report to Mary Tucker RN.
[2018-11-10] MEDS ORDERED: IBUPROFEN 600 MG (MOTRIN) TAB PO ONE (19:27)
[2018-11-10] MEDS: IBUPROFEN 600 MG (MOTRIN) TAB PO SCH (19:31)
[2018-11-10] MEDS: DOCUSATE SODIUM 100 MG (COLACE) CAP PO SCH (20:28)
[2018-11-10] MEDS: ACETAMINOPHEN 500 MG TAB (TYLENOL) PO SCH (20:29)
[2018-11-10] MEDS ORDERED: CATHETER FLUSH 10 ML SYR IV SCH (22:00)
[2018-11-11 03:20] VITALS: BP 98/59
[2018-11-11] MEDS: IBUPROFEN 600 MG (MOTRIN) TAB PO SCH ×3 (03:21→19:24)
[2018-11-11 05:51] LABS: BASOPHILS % (AUTO) 0 % (0-10); EOSINOPHILS # (AUTO) 0.1 10^3/uL (0.0-0.3); EOSINOPHILS % (AUTO) 1 % (0-10); HEMATOCRIT 32 % (35-52); LYMPHOCYTES % (AUTO) 8 % (12-44); MEAN CORPUSCULAR HEMOGLOBIN 26 PG (25-34); MEAN CORPUSCULAR HGB CONC 32 G/DL (32-36); MEAN CORPUSCULAR VOLUME 83 FL (80-99); MEAN PLATELET VOLUME 9.5 FL (7.4-10.4); MONOCYTES # (AUTO) 0.6 X 10^3 (0.0-1.0); MONOCYTES % (AUTO) 5 % (0-12); NEUTROPHILS # (AUTO) 10.4 X 10^3 (1.8-7.8); NEUTROPHILS % (AUTO) 86 % (42-75); PLATELET COUNT 237 10^3/uL (130-400); RED CELL DISTRIBUTION WIDTH 18.4 % (10.0-14.5); WHITE BLOOD COUNT 12.1 10^3/uL (4.3-11.0)
[2018-11-11] MEDS: CATHETER FLUSH 10 ML SYR IV SCH (06:39)
[2018-11-11 08:24] VITALS: BP 107/65
[2018-11-11] MEDS: DOCUSATE SODIUM 100 MG (COLACE) CAP PO SCH ×2 (09:06→21:02)
[2018-11-11] MEDS: FERROUS SULF 325 MG (IRON) TAB PO SCH (09:06)
[2018-11-11] MEDS: PRENATAL VITAMIN 1 EA TAB PO SCH (09:06)
[2018-11-11] MEDS: ACETAMINOPHEN 500 MG TAB (TYLENOL) PO SCH ×2 (09:07→18:04)
--- NOTE | 2018-11-11 10:02 | Postpartum Progress Note ---
Note Note Day # 1 s/p Subjective: Patient is without complaints. Ambulating, voiding. Tolerating a regular diet without nausea or vomiting. Normal lochia. Pain is well controlled with oral pain medications. bresat feeding. Objective: Laboratory Tests Test 11/11/18 05:30 Range/Units White Blood Count 12.1 H 4.3-11.0 10^3/uL Red Blood Count 3.83 L 4.35-5.85 10^6/uL Hemoglobin 10.0 L 11.5-16.0 G/DL Hematocrit 32 L 35-52 % Mean Corpuscular Volume 83 80-99 FL Mean Corpuscular Hemoglobin 26 25-34 PG Mean Corpuscular Hemoglobin Concent 32 32-36 G/DL Red Cell Distribution Width 18.4 H 10.0-14.5 % Platelet Count 237 130-400 10^3/uL Mean Platelet Volume 9.5 7.4-10.4 FL Neutrophils (%) (Auto) 86 H 42-75 % Lymphocytes (%) (Auto) 8 L 12-44 % Monocytes (%) (Auto) 5 0-12 % Eosinophils (%) (Auto) 1 0-10 % Basophils (%) (Auto) 0 0-10 % Neutrophils # (Auto) 10.4 H 1.8-7.8 X 10^3 Lymphocytes # (Auto) 1.0 1.0-4.0 X 10^3 Monocytes # (Auto) 0.6 0.0-1.0 X 10^3 Eosinophils # (Auto) 0.1 0.0-0.3 10^3/uL Basophils # (Auto) 0.0 0.0-0.1 10^3/uL Vital Sign - Last 24 Hours 11/10/18 11/10/18 11/10/18 11/10/18 10:30 11:00 11:30 11:45 Pulse 72 81 83 77 Resp 16 16 16 16 B/P (MAP) 116/71 (86) 115/72 (86) 124/81 (95) 119/70 (86) O2 Delivery Room Air Room Air Room Air Room Air 11/10/18 11/10/18 11/10/18 11/10/18 12:00 12:15 12:30 12:45 Temp 98.0 Pulse 86 86 87 81 Resp 16 16 16 16 B/P (MAP) 118/72 (87) 127/75 (92) 117/73 (88) 131/68 (89) Pulse Ox 98 O2 Delivery Room Air Room Air Room Air Room Air 11/10/18 11/10/18 11/10/18 11/10/18 13:00 13:09 13:12 13:13 Pulse 70 75 86 76 Resp 16 16 16 16 B/P (MAP) 121/73 (89) 126/77 (93) 128/77 (94) 121/70 (87) Pulse Ox 97 98 98 97 O2 Delivery Room Air Room Air Room Air Room Air 11/10/18 11/10/18 11/10/18 11/10/18 13:14 13:15 13:15 13:18 Pulse 76 81 91 Resp 16 16 16 B/P (MAP) 117/67 (84) 122/71 (88) 130/62 (84) Pulse Ox 98 96 98 O2 Delivery Room Air Room Air Room Air 11/10/18 11/10/18 11/10/18 11/10/18 13:30 13:45 14:00 14:15 Temp 98.0 Pulse 92 77 87 81 Resp 16 16 16 16 B/P (MAP) 113/68 (83) 127/68 (87) 115/61 (79) Pulse Ox 97 97 98 97 O2 Delivery Room Air Room Air Room Air Room Air 11/10/18 11/10/18 11/10/18 11/10/18 14:30 14:45 15:00 15:15 Temp 97.7 Pulse 85 75 84 82 Resp 16 16 16 16 B/P (MAP) 106/56 (73) 106/55 (72) 108/61 (77) 125/63 (83) Pulse Ox 98 96 97 97 O2 Delivery Room Air Room Air Room Air Room Air 11/10/18 11/10/18 11/10/18 11/10/18 15:30 15:45 16:00 16:15 Temp 97.3 Pulse 89 93 87 86 Resp 16 16 16 16 B/P (MAP) 122/71 (88) 123/60 (81) 133/80 (97) Pulse Ox 97 97 97 98 O2 Delivery Room Air Room Air Room Air Room Air 11/10/18 11/10/18 11/10/18 11/10/18 16:30 16:45 17:00 17:15 Pulse 90 95 75 82 Resp 16 16 16 16 B/P (MAP) 141/90 (107) 123/79 (94) Pulse Ox 98 98 98 99 O2 Delivery Room Air Room Air Room Air Room Air 11/10/18 11/10/18 11/10/18 11/10/18 17:30 17:45 18:00 18:15 Temp 98.2 98.4 Pulse 94 85 90 90 Resp 16 16 16 16 B/P (MAP) 121/67 (85) 132/63 (86) 139/63 (88) 138/77 (97) Pulse Ox 98 98 99 100 O2 Delivery Room Air Room Air Room Air Room Air 11/10/18 11/10/18 11/10/18 11/10/18 18:30 18:40 18:45 19:00 Temp 99.0 98.8 98.6 Pulse 93 101 98 Resp 16 16 16 B/P (MAP) 136/58 (84) 140/64 (89) 144/66 (92) O2 Delivery Room Air Room Air Room Air 11/10/18 11/10/18 11/10/18 11/10/18 19:15 19:30 20:04 22:31 Temp 99.9 98.4 Pulse 102 97 108 Resp 18 B/P (MAP) 151/66 (94) 147/72 (97) 126/64 (84) 11/10/18 11/11/18 11/11/18 23:50 03:20 08:24 Temp 97.3 97.0 98.8 Pulse 79 76 87 Resp 18 16 16 B/P (MAP) 108/61 (77) 98/59 (72) 107/65 (79) Pulse Ox 98 98 98 O2 Delivery Room Air Intake and Output 11/10/18 11/10/18 11/11/18 15:00 23:00 07:00 Intake Total 1000 ml 1875 ml Balance 1000 ml 1875 ml Physical Exam: General - Alert and oriented, no apparent distress Abdomen - Soft, appropriately tender to palpation, non-distended, fundus firm at umbilicus Extremities - no edema, negative Olaf's bilaterally Assessment: 1. post- day # 1, status post spontaneous vaginal delivery. Recovering well, hemodynamically stable Plan: Routine care. Encourage breast feeding. Encourage ambulation. Ferrous sulfate supplementation. Plan for discharge tomorrow Vitals - Labs Vital Signs - I&O Vital Signs Date Time Temp Pulse Resp B/P (MAP) Pulse Ox O2 Delivery O2 Flow Rate FiO2 11/11/18 08:24 98.8 87 16 107/65 (79) 98 Room Air 11/11/18 03:20 97.0 76 16 98/59 (72) 98 11/10/18 23:50 97.3 79 18 108/61 (77) 98 11/10/18 22:31 98.4 11/10/18 20:04 108 126/64 (84) 11/10/18 19:30 99.9 97 18 147/72 (97) 11/10/18 19:15 102 151/66 (94) 11/10/18 19:00 98 16 144/66 (92) Room Air 11/10/18 18:45 98.6 101 16 140/64 (89) Room Air 11/10/18 18:40 98.8 11/10/18 18:30 99.0 93 16 136/58 (84) Room Air 11/10/18 18:15 98.4 90 16 138/77 (97) 100 Room Air 11/10/18 18:00 90 16 139/63 (88) 99 Room Air 11/10/18 17:45 85 16 132/63 (86) 98 Room Air 11/10/18 17:30 98.2 94 16 121/67 (85) 98 Room Air 11/10/18 17:15 82 16 123/79 (94) 99 Room Air 11/10/18 17:00 75 16 98 Room Air 11/10/18 16:45 95 16 141/90 (107) 98 Room Air 11/10/18 16:30 90 16 98 Room Air 11/10/18 16:15 97.3 86 16 133/80 (97) 98 Room Air 11/10/18 16:00 87 16 123/60 (81) 97 Room Air 11/10/18 15:45 93 16 122/71 (88) 97 Room Air 11/10/18 15:30 89 16 97 Room Air 11/10/18 15:15 97.7 82 16 125/63 (83) 97 Room Air 11/10/18 15:00 84 16 108/61 (77) 97 Room Air 11/10/18 14:45 75 16 106/55 (72) 96 Room Air 11/10/18 14:30 85 16 106/56 (73) 98 Room Air 11/10/18 14:15 81 16 115/61 (79) 97 Room Air 11/10/18 14:00 87 16 98 Room Air 11/10/18 13:45 77 16 127/68 (87) 97 Room Air 11/10/18 13:30 98.0 92 16 113/68 (83) 97 Room Air 11/10/18 13:18 91 16 130/62 (84) 98 Room Air 11/10/18 13:15 81 16 122/71 (88) 96 Room Air 11/10/18 13:15 11/10/18 13:14 76 16 117/67 (84) 98 Room Air 11/10/18 13:13 76 16 121/70 (87) 97 Room Air 11/10/18 13:12 86 16 128/77 (94) 98 Room Air 11/10/18 13:09 75 16 126/77 (93) 98 Room Air 11/10/18 13:00 70 16 121/73 (89) 97 Room Air 11/10/18 12:45 98.0 81 16 131/68 (89) 98 Room Air 11/10/18 12:30 87 16 117/73 (88) Room Air 11/10/18 12:15 86 16 127/75 (92) Room Air 11/10/18 12:00 86 16 118/72 (87) Room Air 11/10/18 11:45 77 16 119/70 (86) Room Air 11/10/18 11:30 83 16 124/81 (95) Room Air 11/10/18 11:00 81 16 115/72 (86) Room Air 11/10/18 10:30 72 16 116/71 (86) Room Air I & O 11/11/18 07:00 Intake Total 2875 ml Balance 2875 ml Labs Laboratory Tests 11/11/18 05:30: White Blood Count 12.1H, Red Blood Count 3.83L, Hemoglobin 10.0L, Hematocrit 32L , Mean Corpuscular Volume 83, Mean Corpuscular Hemoglobin 26, Mean Corpuscular Hemoglobin Concent 32, Red Cell Distribution Width 18.4H, Platelet Count 237, Mean Platelet Volume 9.5, Neutrophils (%) (Auto) 86H, Lymphocytes (%) (Auto) 8L , Monocytes (%) (Auto) 5, Eosinophils (%) (Auto) 1, Basophils (%) (Auto) 0, Neutrophils # (Auto) 10.4H, Lymphocytes # (Auto) 1.0, Monocytes # (Auto) 0.6, Eosinophils # (Auto) 0.1, Basophils # (Auto) 0.0 MARIELENA RUIZ DO Nov 11, 2018 10:02
[2018-11-11] MEDS ORDERED: FLU QUADRIvalent (5+ YOA) 2018-2019 (AFLURIA) 0.5 ML IM ONE (10:45)
[2018-11-11 13:10] VITALS: BP 115/72
[2018-11-11 16:00] VITALS: BP 119/72
[2018-11-11 20:30] VITALS: BP 123/58
[2018-11-12] MEDS: IBUPROFEN 600 MG (MOTRIN) TAB PO SCH ×2 (00:33→08:31)
[2018-11-12] MEDS ORDERED: ACET-77 PO (02:40)
[2018-11-12] MEDS ORDERED: IBUP-844 PO (02:40)
--- NOTE | 2018-11-12 02:41 | Discharge Inst-Women's Service ---
Discharge Inst-Women's Serv Depart Medication/Instructions New, Converted or Re-Newed RX: Transmitted to Pharmacy Final Diagnosis Labor antepartum anemia Consults/Follow Up Additional Follow Up: Yes (6 weeks) Activity Activity: Activity as Tolerated Driving Instructions: You May Drive NO SMOKING: NO SMOKING Nothing Inside Vagina: No Douching, No [place], No Tampons Diet Discharge Diet: No Restrictions Symptoms to Report to : Bleeding Excessive, Pain Increased, Fever Over 101 Degrees F, Vaginal Bleeding Increase, Cramps in Feet or Legs, Vaginal Discharge Foul For Any Problems or Questions: Contact Your Physician MARIELENA RUIZ DO Nov 12, 2018 02:41
[2018-11-12 04:50] VITALS: BP 121/69
--- NOTE | 2018-11-12 07:34 | NUR ---
Report given to Elizabeth Lemos RN
[2018-11-12] MEDS: FERROUS SULF 325 MG (IRON) TAB PO SCH (08:31)
[2018-11-12] MEDS: PRENATAL VITAMIN 1 EA TAB PO SCH (08:31)
[2018-11-12] MEDS: DOCUSATE SODIUM 100 MG (COLACE) CAP PO SCH (08:31)
[2018-11-12 08:33] VITALS: BP 110/72
--- NOTE | 2018-11-12 08:35 | NUR ---
PT SITTING UP ON THE SIDE OF THE BED. VS OBTAINED. MEDS GIVEN; SEE EMAR FOR FURTHER. INITIAL SHIFT ASSESSMENT COMPLETED; SEE INTERVENTION FOR FURTHER. PT DENIES ANY NEEDS, PLAN TO DISCHARGE TODAY. CALL LIGHT WITHIN REACH. S/O AT THE BEDSIDE.
--- NOTE | 2018-11-12 09:14 | NUR ---
DISCHARGE PAPERS PROVIDED AND REVIEWED WITH PT, PT VERBALIZES UNDERSTANDING AND DENIES ANY QUESTIONS AT THIS TIME. PAPER SIGNED.
--- NOTE | 2018-11-12 11:13 | NUR ---
PT DISCHARGED FROM -310 TO [facility] VIA AMBULATORY IN STABLE CONDITION ACC BY S/O, AND Angelica RAMOS RN.
== END 2018-11-12 11:13 | disposition home or self-care (01) | DRG 807 ==
LOC: WSo 08:14 → LDRP 08:15 → WSo 08:45 → LDRP 08:45 → UNDOADMIN 08:45 → LDRP 21:00
PROVIDERS: ADMIT Obstetrics & Gynecology; ATTEND Obstetrics & Gynecology
PROC: 10E0XZZ Delivery of Products of Conception, External Approach (ICD-10-PCS; principal; 2018-11-10)
DX: O99.02 Anemia complicating childbirth (principal); D50.9 Iron deficiency anemia, unspecified; Z37.0 Single live birth; Z3A.38 38 weeks gestation of pregnancy
CPT/HCPCS: 36415; 81000; 85025; 86850; 86900; 86901; 87088; 88305; 99212

== ENCOUNTER 2020-03-13 11:24 | Emergency (ER) | payer SELFPAY ==
[~2020-03-13] VITALS: Ht 160 cm; Wt 66.0 kg
[~2020-03-13 11:24] MED LIST changes: +ACET-78 PO; +FERR-84 PO; +IBUP-844 PO; +PREN1TAB79 PO
[2020-03-13 11:39] LABS: BILIRUBIN,URINE NEGATIVE (NEGATIVE); CLARITY,URINE CLEAR; COLOR,URINE YELLOW; GLUCOSE, URINE (UA) NEGATIVE (NEGATIVE); KETONES,URINE NEGATIVE (NEGATIVE); LEUKOCYTE ESTERASE ,URINE NEGATIVE (NEGATIVE); NITRITE,URINE NEGATIVE (NEGATIVE); PH,URINE 8.5 (5-9); PROTEIN,URINE TRACE (NEGATIVE)
[2020-03-13] MEDS ORDERED: LACTATED RINGERS 1,000 ML IV ONE (11:44)
[2020-03-13] MEDS ORDERED: PANTOPRAZOLE 40 MG (PROTONIX) VIAL IV ONE (11:45)
[2020-03-13] MEDS ORDERED: KETOROLAC 30 MG/ML VIAL IVP ONE (11:45)
--- NOTE | 2020-03-13 11:49 | ED Abdominal Pain ---
General Chief Complaint: Abdominal/GI Problems Stated Complaint: ABD / BACK PAIN Source of Information: Patient Exam Limitations: No Limitations History of Present Illness Date Seen by Provider: Mar 13, 2020 Time Seen by Provider: 11:30 Initial Comments Patient presents ER by private conveyance with chief complaint that she had [place] food last night started having some nausea and a couple hours after that and then about 2 in the morning she woke up with pain in her epigastric region radiating towards her back and left upper quadrant. No fever or sore throat. No history of abdominal surgeries or prior past medical history. No family medical history of. She's having nausea presently. She tried eat some toast this morning and vomited it up. She did take some ibuprofen 200 mg 3 in the morning without significant relief. She did not take any antacids. No diarrhea or constipation fever or chills. Presently rates her pain as a 6 out of 10. Allergies and Home Medications Allergies Coded Allergies: No Known Drug Allergies (Unverified , 06/26/18) Home Medications Acetaminophen 500 Mg Tablet, 1,000 MG PO Q8H Prescribed by: MARIELENA RUIZ on 11/12/18 0240 Ferrous Sulfate 325 Mg Tablet, 325 MG PO DAILY, (Reported) Ibuprofen 600 Mg Tablet, 600 MG PO Q6H Prescribed by: MARIELENA RUIZ on 11/12/18 0240 Vit W-Ca,Fe,FA(<1 mg) 1 Each Tablet, 1 EACH PO DAILY, (Reported) Patient Home Medication List Home Medication List Reviewed: Yes Review of Systems Review of Systems Constitutional: No chills, No diaphoresis EENTM: No Blurred Vision, No Double Vision Respiratory: Denies Cough, Denies Shortness of Air Cardiovascular: Denies Chest Pain, Denies Edema Gastrointestinal: See HPI, Abdominal Pain; Denies Constipated, Denies Diarrhea; Nausea, Poor Fluid Intake; Denies Vomiting Genitourinary: Denies Burning, Denies Discharge Musculoskeletal: No back pain, No joint pain All Other Systems Reviewed Negative Unless Noted: Yes Past Qjfybyt-Qcpelr-Dyafwg Hx Patient Social History Alcohol Use: Denies Use Recreational Drug Use: No Smoking Status: Never a Smoker 2nd Hand Smoke Exposure: No Recent Foreign Travel: No Contact w/Someone Who Travel: No Recent Hopitalizations: No Physical Abuse: No Sexual Abuse: No Immunizations Up To Date Tetanus Booster (TDap): Less than 5yrs Seasonal Allergies Seasonal Allergies: No Past Medical History Surgeries: No Respiratory: No Cardiac: No Neurological: No Sexually Transmitted Disease: No HIV/AIDS: No Genitourinary: No Gastrointestinal: No Musculoskeletal: No Endocrine: No HEENT: No Cancer: No Psychosocial: No Integumentary: No Blood Disorders: No Adverse Reaction/Blood Tranf: No Family Medical History Autism in sibling G8 SISTER Hypertension 19 FATHER 19 MOTHER Physical Exam Vital Signs Vital Signs - First Documented 03/13/20 11:25 Temp 36.4 Pulse 80 Resp 18 B/P (MAP) 122/75 (91) Pulse Ox 100 Capillary Refill : Height/Weight/BMI Height: 5'5.00" Weight: 171lbs. 8.0oz. 77.313383fo; 28.5 BMI Method:Stated General Appearance: WD/WN, mild distress HEENT: PERRL/EOMI, pharynx normal Respiratory: lungs clear, normal breath sounds, no respiratory distress, no accessory muscle use Cardiovascular: normal peripheral pulses, regular rate, rhythm Peripheral Pulses: 2+ Radial Pulses (R), 2+ Radial Pulses (L) Gastrointestinal: normal bowel sounds, soft; No rebound; tenderness (epigastric and right upper quadrant with positive Hilario sign. Negative for Rovsing sign or McBurney's point tenderness. Negative for psoas sign.) Neurologic/Psychiatric: alert, normal mood/affect, oriented x 3 Skin: normal color, warm/dry Progress/Results/Core Measures Results/Orders Lab Results Laboratory Tests Test 03/13/20 11:30 03/13/20 11:35 Range/Units Urine Color YELLOW Urine Clarity CLEAR Urine pH 8.5 5-9 Urine Specific [place] 1.015 L 1.016-1.022 Urine Protein TRACE H NEGATIVE Urine Glucose (UA) NEGATIVE NEGATIVE Urine Ketones NEGATIVE NEGATIVE Urine Nitrite NEGATIVE NEGATIVE Urine Bilirubin NEGATIVE NEGATIVE Urine Urobilinogen 1.0 < = 1.0 MG/DL Urine Leukocyte Esterase NEGATIVE NEGATIVE Urine RBC (Auto) NEGATIVE NEGATIVE Urine RBC NONE /HPF Urine WBC 2-5 /HPF Urine Squamous Epithelial Cells 10-25 H /HPF Urine Crystals NONE /LPF Urine Bacteria TRACE /HPF Urine Casts NONE /LPF Urine Mucus SMALL H /LPF Urine Culture Indicated NO White Blood Count 4.7 4.3-11.0 10^3/uL Red Blood Count 4.55 4.35-5.85 10^6/uL Hemoglobin 9.1 L 11.5-16.0 G/DL Hematocrit 31 L 35-52 % Mean Corpuscular Volume 68 L 80-99 FL Mean Corpuscular Hemoglobin 20 L 25-34 PG Mean Corpuscular Hemoglobin Concent 30 L 32-36 G/DL Red Cell Distribution Width 20.5 H 10.0-14.5 % Platelet Count 527 H 130-400 10^3/uL Mean Platelet Volume 9.4 7.4-10.4 FL Neutrophils (%) (Auto) 61 42-75 % Lymphocytes (%) (Auto) 29 12-44 % Monocytes (%) (Auto) 6 0-12 % Eosinophils (%) (Auto) 3 0-10 % Basophils (%) (Auto) 1 0-10 % Neutrophils # (Auto) 2.9 1.8-7.8 X 10^3 Lymphocytes # (Auto) 1.4 1.0-4.0 X 10^3 Monocytes # (Auto) 0.3 0.0-1.0 X 10^3 Eosinophils # (Auto) 0.2 0.0-0.3 10^3/uL Basophils # (Auto) 0.1 0.0-0.1 10^3/uL Sodium Level 139 135-145 MMOL/L Potassium Level 3.5 L 3.6-5.0 MMOL/L Chloride Level 108 H 98-107 MMOL/L Carbon Dioxide Level 19 L 21-32 MMOL/L Anion Gap 12 5-14 MMOL/L Blood Urea Nitrogen 8 7-18 MG/DL Creatinine 0.78 0.60-1.30 MG/DL Estimat Glomerular Filtration Rate > 60 BUN/Creatinine Ratio 10 Glucose Level 87 70-105 MG/DL Calcium Level 8.9 8.5-10.1 MG/DL Corrected Calcium 8.5-10.1 MG/DL Total Bilirubin 0.6 0.1-1.0 MG/DL Aspartate Amino Transf (AST/SGOT) 48 H 5-34 U/L Alanine Aminotransferase (ALT/SGPT) 21 0-55 U/L Alkaline Phosphatase 79 40-136 U/L Total Protein 7.8 6.4-8.2 GM/DL Albumin 4.6 H 3.2-4.5 GM/DL Lipase 12 8-78 U/L My Orders Orders - KRISTEL MARTINEZ Ua Culture If Indicated (03/13/20 11:29) Urine Bedside (03/13/20 11:29) Ketorolac Injection (Toradol Injection) (03/13/20 11:45) Pantoprazole Injection (Protonix Injecti (03/13/20 11:45) Comprehensive Metabolic Panel (03/13/20 11:44) Lipase (03/13/20 11:44) Ed Iv/Invasive Line Start (03/13/20 11:44) Lactated Ringers (Lr 1000 Ml Iv Solution (03/13/20 11:44) Ct Abdomen/Pelvis W (03/13/20 11:44) Cbc With Automated Diff (03/13/20 11:44) Ondansetron Injection (Zofran Injectio (03/13/20 12:00) Iohexol Injection (Omnipaque 350 Mg/Ml 1 (03/13/20 12:15) Received Contrast (Hold Metformin- Contr (03/13/20 12:15) Ns (Ivpb) (Sodium Chloride 0.9% Ivpb Bag (03/13/20 12:15) Medications Given in ED Current Medications Medications Dose Ordered Sig/Ayah Route Start Time Stop Time Status Last Admin Dose Admin Iohexol 100 ml ONCE ONCE IV 03/13/20 12:15 03/13/20 12:16 DC 03/13/20 12:14 83 ML Ketorolac Tromethamine 30 mg ONCE ONCE IVP 03/13/20 11:45 03/13/20 11:47 DC 03/13/20 11:54 30 MG Lactated Ringer's 1,000 ml @ 0 mls/hr Q0M ONCE IV 03/13/20 11:44 03/13/20 11:47 DC 03/13/20 11:54 1,000 MLS/HR Ondansetron HCl 4 mg ONCE ONCE IVP 03/13/20 12:00 03/13/20 12:01 DC 03/13/20 11:54 4 MG Pantoprazole 40 mg ONCE ONCE IV 03/13/20 11:45 03/13/20 11:47 DC 03/13/20 11:54 40 MG Sodium Chloride 100 ml ONCE ONCE IV 03/13/20 12:15 03/13/20 12:16 DC 03/13/20 12:15 80 ML Vital Signs/I&O 7/18/20 11:25 Temp 36.4 Pulse 80 Resp 18 B/P (MAP) 122/75 (91) Pulse Ox 100 Progress Progress Note : Time: 11:51 Progress Note Suspect gallbladder versus less likely PUD/pancreatitis/other. Plan to get labs including lipase and urinalysis. Bedside presence he was negative. Ultrasound not available sort and a CT of her abdomen and pelvis with IV contrast. Liter of lactated Ringer's, Zofran, pantoprazole and Toradol for her symptoms. Diagnostic Imaging Diagonstic Imaging: CT (with IV contrast) Plain Films/CT/US/NM/MRI: abdomen, pelvis Comments NAME: LEN BARBOSA [facility] REC#: [id number] PT STATUS: REG ER : 1990 PHYSICIAN: KRISTEL MARTINEZ MD ADMIT DATE: 03/13/20/ER Draft Date of Exam:03/13/20 CT ABDOMEN/PELVIS W PROCEDURE: CT abdomen and pelvis with contrast. TECHNIQUE: Multiple contiguous axial images were obtained through the abdomen and pelvis after administration of intravenous contrast. Auto Exposure Controls were utilized during the CT exam to meet ALARA standards for radiation dose reduction. INDICATION: Bilateral flank pain. Nausea and vomiting. COMPARISON: None. FINDINGS: Hypoattenuating and hypoenhancing mass in the right hepatic lobe measures 2.9 x 3.4 cm. This contains a hyperdensity on both contrast and delayed images measuring 0.7 cm. The gallbladder, pancreas, spleen, adrenals, kidneys, collecting systems and bladder are negative. Peripherally enhancing cyst in the right ovary measuring up to 2.1 cm likely represents a corpus luteum. Scant free fluid dependently in the pelvis. Normal appendix. No free intraperitoneal air. No lymphadenopathy. No evidence of bowel obstruction or inflammation. No acute osseous findings. IMPRESSION: 1. Hypoattenuating mass in the right hepatic lobe containing a central hyperattenuation. This is indeterminate and a parasitic infection could have a similar appearance. Recommend nonemergent followup with dedicated MRI with contrast. 2. Peripheral enhancing cyst in the right ovary likely represents a corpus luteum. Scant free fluid dependently in the pelvis may be physiologic. 3. CT abdomen and pelvis is otherwise unremarkable. Dictated on workstation # [id number] Dict: 03/13/20 1234 Trans: 03/13/20 1253 [facility] [id number] Interpreted by: PARAS ERVIN MD Electronically signed by: Reviewed: Reviewed by Me Departure Impression Primary Impression: Biliary colic Additional Impression: Liver lesion Disposition: 01 HOME, SELF-CARE Condition: Stable Departure-Patient Inst. Decision time for Depature: 13:15 Referrals: BHARATHI HERRERA MD NO,LOCAL PHYSICIAN (PCP) Primary Care Physician Patient Instructions: Cysts in the Liver, Gallbladder Diet Add. Discharge Instructions: I suspect that the pain you're experiencing is from your gallbladder. I would suggest you change your diet to include high fiber low fats and avoid spicy foods. Start taking omeprazole 40 mg daily for the next 30 days. Call and make an appointment with Dr. Herrera, general surgery to discuss further workup your pain. Tylenol 1000 mg every 8 hours as necessary for pain. Ibuprofen 800 mg every 8 hours as necessary for pain. You may also use Maalox, Tums, Rolaids etc. for indigestion or stomach pain. Ondansetron one tablet under the tongue every 6 hours as necessary for nausea or vomiting. Return to the ER if you develop fever, intractable pain and/or nausea or other worrisome symptoms. Sunday you may call the scheduling department and set up an ultrasound of your gallbladder outpatient. Results will be forwarded to Dr. Herrera's office. All discharge instructions reviewed with patient and/or family. Voiced understanding. Scripts Omeprazole (Omeprazole) 40 Mg Capsule.dr 40 MG PO DAILY for 30 Days, #30 CAP 0 Refills Prov: KRISTEL MARTINEZ 03/13/20 Ondansetron (Ondansetron Odt) 4 Mg Tab.rapdis 4 MG PO Q6H PRN for NAUSEA/VOMITING, #8 TAB 0 Refills Prov: KRISTEL MARTINEZ 03/13/20 Copy Copies To 1: BHARATHI HERRERA MD, TITUS J Mar 13, 2020 11:49
[2020-03-13 11:53] LABS: BACTERIA,URINE TRACE /HPF
--- OUTSIDE RECORDS SUMMARY | 2020-03-13 11:55 | XMS REPORT ---
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 Name Role Phone AME Chester Unavailable PROBLEMS Type Condition ICD9-CM Code CKJ60-CF Code Onset Dates Condition S tatus SNOMED Code Problem Encounter for insertion of intrauterine contraceptive device Z30.430 Active 41534026 Problem Microcytic anemia D50.9 Active 23 3878656 Problem Itching L29.9 Active 499047445 Problem Bug bites W57.XXXA Active [id number] ALLERGIES No Information ENCOUNTERS Encounter Location Date Diagnosis [facility] [address] [place] [address] Feb, Viral upper respiratory trac t infection J06.9 [facility] IN [facility] [address] [place] [id number] [address] [place] [address] May, [place] [address] [address] May, care in second trimester Z34.92 [place] [address] [address] May, Microcytic anemia D50.9 [facility] [address] [address] May, Microcytic anemia D50.9 [place] [address] [address] Apr, Multigravida in first trimester Z34.81 a nd Normal in multigravida Z34.80 [place] [address] [address] Apr, [place] [address] [place] [address] 14 Apr, 2018 [facility] [address] [place] [id number] [place] [address] Apr, [place] [address] [place] [id number] [place] [address] 07 Apr, 2018 Encounter for test Z32.00 [facility] [address] [facility] [id number] [address] [place] [address] Feb, Irritant contact dermatitis due to other chemical products L24.5 [place] [address] [place] [id number] [place] [address] Feb, Frequent headaches R51 [facility] N [facility] [id number] [address] [place] [address] Feb, Frequent headaches R51 [facility] N [facility] [id number] [address] [place] [address] Aug, Other viral agents as the ca use of diseases classified elsewhere B97.89 and Acute upper respiratory infection, unspecified J06.9 [place] [address] [place] [id number] [place] [address] Feb, Pyelonephritis N12 [place] [address] [address] Nov, Leukorrhea N89.8 ; Acute vaginitis N76.0 and Other specified bacterial agents as the cause of diseases classified elsewhere B96.89 [place] [address] [place] [id number] [place] [address] Oct, Right ovarian cyst N83.20 [place] [address] [place] [id number] [place] [address] Sep, [place] [address] [address] Aug, [place] [address] [address] Aug, Right ovarian cyst N83.20 [place] [address] [address] 11 Aug, 2015 Encounter for insertion of intrauterine contraceptive device Z30.430 [place] [address] [place] [id number] 07 Aug, 2015 Encounter for counseling regarding contr aception Z30.[address] [address] 04 Aug, [address] [address] 18 Jul, 2015 Well woman exam Z01.419 ; Weight gain R6 3.5 and BMI 27.0-27.9,adult Z68.[address] [address] 18 Jul, 2015 Erythema nodosum L52 and Fatigue R53.[address] [address] 16 Jul, 2015 Erythema nodosum L52 [address] [address] 30 Jun, 2015 General counseling and advice for contra ceptive management Z30.09 and OCP (oral contraceptive pills) initiation Z30.[address] [address] 27 Jun, 2015 Bug bites W57.XXXA and Itching L29.[address] [address] 19 Jun, 2015 Well woman exam Z01.419 ; Weight gain R6 3.5 and BMI 27.0-27.9,adult Z68.[address] [address] 27 May, 2015 Ankle pain, left M25.572 [facility] [address] [id number] December, Dental examination V72.2 [facility] [address] [id number] December, Dental examination V72.2 [facility] [address] [id number] [place] [address] Nov, [facility] [address] [id number] [place] [address] Nov, [facility] [address] [id number] [place] [address] Sep, [facility] [address] [id number] [place] [address] Sep, [facility] [address] [id number] [place] [address] Sep, [facility] [address] [id number] [place] [address] Sep, [facility] [address] [id number] [place] [address] Jun, [facility] [address] [id number] [place] [address] Jun, [facility] [address] [id number] [place] [address] May, [facility] [address] [id number] [place] [address] May, [facility] [address] [id number] [place] [address] Apr, [facility] [address] [id number] [place] [address] Apr, [facility] [address] [id number] [place] [address] Apr, [facility] [address] [id number] [place] [address] Apr, [facility] [address] [id number] [place] [address] Mar, [facility] [address] [id number] [place] [address] Mar, [facility] [address] [id number] [place] [address] December, [facility] [address] [facility] [id number] [place] [address] December, [facility] [address] [id number] [place] [address] Nov, [facility] [address] [id number] [place] [address] Nov, [facility] [address] [id number] [place] [address] Sep, [facility] [address] [id number] [place] [address] Sep, [facility] [address] [id number] [place] [address] Sep, [facility] [address] [id number] [place] [address] Sep, [facility] [address] [id number] [place] [address] Sep, [facility] [address] [id number] [place] [address] Sep, [facility] [address] [id number] [place] [address] Aug, [facility] [address] [id number] [place] [address] Aug, [facility] [address] [id number] [place] [address] Aug, [facility] [address] [id number] [place] [address] Aug, [facility] [address] [id number] [place] [address] Aug, [facility] [address] [id number] [place] [address] Aug, [facility] [address] [id number] [place] [address] Aug, [facility] [address] [facility] [id number] [place] [address] Aug, [facility] [address] [facility] [id number] [place] [address] Jun, [facility] [address] [id number] [place] [address] Jun, [facility] [address] [id number] [place] [address] Jan, [facility] [address] [facility] [id number] [place] [address] Jan, [facility] [address] [id number] [place] [address] Oct, [facility] [address] [id number] [place] [address] Oct, [facility] [address] [id number] [place] [address] Oct, [facility] [address] [id number] [place] [address] Oct, [facility] [address] [id number] [place] [address] Oct, [facility] [address] [id number] [place] [address] Sep, [facility] [address] [id number] [place] [address] Sep, [facility] [address] [id number] [place] [address] Sep, [facility] [address] [id number] [place] [address] May, [facility] [address] [id number] [place] [address] May, [facility] [address] [id number] [place] [address] May, [facility] [address] [id number] [place] [address] Jan, [facility] [address] [facility] [id number] [place] [address] Aug, IMMUNIZATIONS No Known Immunizations SOCIAL HISTORY Never Assessed REASON FOR VISIT PLAN OF CARE VITAL SIGNS MEDICATIONS No Known Medications RESULTS No Results PROCEDURES No Known procedures INSTRUCTIONS MEDICATIONS ADMINISTERED No Known Medications MEDICAL (GENERAL) HISTORY Type Description Date Surgical History No know Surgical history Hospitalization History childbirth 2008 Hospitalization History childbirth 2019
--- OUTSIDE RECORDS SUMMARY | 2020-03-13 11:55 | XMS REPORT ---
Author Author Chiquita LEBLANC Organization [facility] Address [address] [place] [address] Care Team Providers Care Vice President Medical Affairs Name Role Phone VALDEZ LEBLANC Unavailable PROBLEMS Type Condition ICD9-CM Code UVI21-ZO Code Onset Dates Condition S tatus SNOMED Code Problem Encounter for insertion of intrauterine contraceptive device Z30.430 Active 16645076 Problem Microcytic anemia D50.9 Active 23 4055788 Problem Itching L29.9 Active 912811706 Problem Bug bites W57.XXXA Active 845704804 ALLERGIES No Information ENCOUNTERS Encounter Location Date Diagnosis [facility] [address] [place] [id number] [address] [place] [address] Feb, Viral upper respiratory trac t infection J06.9 [facility] IN [facility] [address] [place] [id number] [address] [place] [address] May, [facility] [address] [place] [id number] [address] [place] [address] May, care in second trim elizabeth Z34.92 [facility] [address] [place] [address] May, Microcytic anemia D50.9 [facility] [address] [place] [id number] [address] [place] [address] May, Microcytic anemia D50.9 [facility] [address] [place] [id number] [address] [place] [address] Apr, Multigravida in first trimes ter Z34.81 and Normal in multigravida Z34.80 [facility] [address] [place] [address] Apr, [facility] [address] [id number] [address] [place] [address] 14 Apr, 2018 [facility] [address] [id number] [address] [place] [address] 11 Apr, 2018 [facility] [address] [id number] [address] [place] [address] 07 Apr, 2018 Encounter for test Z32.00 [facility] [address] [id number] [address] [place] [address] Feb, Irritant contact dermatitis due to other chemical products L24.5 [facility] [address] [id number] [address] [place] [address] Feb, Frequent headaches R51 [facility] [address] [facility] [id number] [address] [place] [address] Feb, Frequent headaches R51 [facility] [address] [facility] [id number] [address] [place] [address] Aug, Other viral agents as the ca use of diseases classified elsewhere B97.89 and Acute upper respiratory infection, unspecified J06.9 [facility] [address] [id number] [address] [place] [address] Feb, Pyelonephritis N12 [place] [address] [facility] [id number] [address] [place] [address] Nov, Leukorrhea N89.8 ; Acute vag initis N76.0 and Other specified bacterial agents as the cause of diseases classified elsewhere B96.89 [facility] [address] [id number] [address] [place] [address] Oct, Right ovarian cyst N83.20 [place] [address] [id number] [address] [place] [address] Sep, [facility] [address] [facility] [id number] [address] [place] [address] Aug, [place] [id number] [address] 13 Aug, 2015 Right ovarian cyst N83.20 [place] [address] [address] 11 Aug, 2015 Encounter for insertion of i ntrauterine contraceptive device Z30.430 [place] [address] [address] 07 Aug, 2015 Encounter for counseling reg arding contraception Z30.9 [place] [address] [address] 04 Aug, 2015 [place] [address] [address] 18 Jul, 2015 Well woman exam Z01.419 ; We ight gain R63.5 and BMI 27.0-27.9,adult Z68.[address] [address] 18 Jul, 2015 Erythema nodosum L52 and Fat igue R53.83 [place] [address] [address] 16 Jul, 2015 Erythema nodosum L52 [place] [address] [address] 30 Jun, 2015 General counseling and advic e for contraceptive management Z30.09 and OCP (oral contraceptive pills) initiation Z30.011 [place] [address] [address] 27 Jun, 2015 Bug bites W57.XXXA and Itchi ng L29.9 [place] [address] [address] 19 Jun, 2015 Well woman exam Z01.419 ; We ight gain R63.5 and BMI 27.0-27.9,adult Z68.27 [place] [address] [address] 27 May, 2015 Ankle pain, left M25.572 [facility] [address] [id number] [place] [id number] December, Dental examination V72.2 [facility] [address] [id number] [address] [place] [id number] December, Dental examination V72.2 [facility] [address] [id number] [address] [place] [address] Nov, [facility] [address] [id number] [address] [place] [address] Nov, [facility] [address] [id number] [address] [place] [address] Sep, [facility] [address] [id number] [address] [place] [address] Sep, [facility] [address] [id number] [address] [place] [address] Sep, [facility] [address] [id number] [address] [place] [address] Sep, [facility] [address] [id number] [address] [place] [address] Jun, [facility] [address] [id number] [address] [place] [address] Jun, [facility] [address] [id number] [address] [place] [address] May, [facility] [address] [id number] [address] [place] [address] May, [facility] [address] [id number] [address] [place] [address] Apr, [facility] [address] [id number] [address] [place] [address] Apr, [facility] [address] [id number] [address] [place] [address] Apr, [facility] [address] [id number] [address] [place] [address], [place] [address] Apr, [facility] [address] [id number] [address] [place] [address], [place] [address] Mar, [facility] [address] [id number] [address] [place] [address], [place] [address] Mar, [facility] [address] [id number] [address] [place] [address], [place] [address] December, [facility] [address] [id number] [address] [place] [address], [place] [address] December, [facility] [address] [id number] [address] [place] [address], [place] [address] Nov, [facility] [address] [id number] [address] [place] [address], [place] [address] Nov, [facility] [address] [id number] [address] [place] [address], [place] [address] Sep, [facility] [address] [id number] [address] [place] [address], [place] [address] Sep, [facility] [address] [id number] [address] [place] [address], [place] [address] Sep, [facility] [address] [id number] [address] [place] [address], [place] [address] Sep, [facility] [address] [id number] [address] [place] [address], [place] [address] Sep, [facility] [address] [id number] [address] [place] [address], [place] [address] Sep, [facility] [address] [id number] [address] [place] [address], [place] [address] Aug, [facility] [address] [id number] [address] [place] [address], [place] [address] Aug, [facility] [address] [id number] [address] [place] [address], [place] [address] Aug, [facility] [address] [id number] [address] [place] [address], [place] [address] Aug, [facility] [address] [id number] [address] [place] [address], [place] [address] Aug, [facility] [address] [id number] [address] [place] [address], [place] [address] Aug, [facility] [address] [id number] [address] [place] [address], [place] [address] Aug, [facility] [address] [id number] [address] [place] [address], [place] [address] Aug, [facility] [address] [id number] [address] [place] [address], [place] [address] Jun, [facility] [address] [id number] [address] [place] [address], [place] [address] Jun, [facility] [address] [id number] [address] [place] [address], [place] [address] Jan, [facility] [address] [id number] [address] [place] [address], [place] [address] Jan, [facility] [address] [id number] [address] [place] [address], [place] [address] Oct, [facility] [address] [id number] [address] [place] [address], [place] [address] Oct, [facility] [address] [id number] [address] [place] [address], [place] [address] Oct, [facility] [address] [id number] [address] [place] [address], [place] [address] Oct, [facility] [address] [id number] [address] [place] [address], [place] [address] Oct, [facility] [address] [id number] [address] [place] [address], [place] [address] Sep, [facility] [address] [id number] [address] [place] [address] Sep, [facility] [address] [facility] [id number] [address] [place] [address] Sep, [facility] [address] [facility] [id number] [address] [place] [address] May, [facility] [address] [facility] [id number] [address] [place] [address] May, [facility] [address] [facility] [id number] [address] [place] [address] May, [facility] [address] [facility] [id number] [address] [place] [address] Jan, [facility] [address] [facility] [id number] [address] [place] [address] Aug, IMMUNIZATIONS No Known Immunizations SOCIAL HISTORY Never Assessed REASON FOR VISIT PLAN OF CARE VITAL SIGNS MEDICATIONS No Known Medications RESULTS No Results PROCEDURES No Known procedures INSTRUCTIONS MEDICATIONS ADMINISTERED No Known Medications MEDICAL (GENERAL) HISTORY Type Description Date Surgical History No know Surgical history Hospitalization History childbirth 2008 Hospitalization History childbirth 2019
--- OUTSIDE RECORDS SUMMARY | 2020-03-13 11:55 | XMS REPORT ---
Author Author Chiquita Hernandez Doctor Organization [facility] Address Unknown Phone Unavailable Care Team Providers Care Chip Mixing Machine Operator Name Role Phone Migration, Doctor Unavailable Unavailable PROBLEMS Type Condition ICD9-CM Code LOE97-CV Code Onset Dates Condition S tatus SNOMED Code Problem Encounter for insertion of intrauterine contraceptive device Z30.430 Active 06308932 Problem Microcytic anemia D50.9 Active 23 6629223 Problem Itching L29.9 Active 712303110 Problem Bug bites W57.XXXA Active 085799945 ALLERGIES No Information ENCOUNTERS Encounter Location Date Diagnosis [facility] [address] [facility] [id number] [address] [place] [address] Feb, Viral upper respiratory trac t infection J06.9 [facility] [address] [facility] [id number] [address] [place] [address] May, [facility] [address] [facility] [id number] [address] [place] [address] May, care in second trim elizabeth Z34.92 [facility] [address] [facility] [id number] [address] [place] [address] May, Microcytic anemia D50.9 [facility] [address] [place] [id number] [address] [place] [address] May, Microcytic anemia D50.9 [facility] [address] [facility] [id number] [address] [place] [address] 26 Apr, 2018 [address] in first trimes ter Z34.81 and Normal in multigravida Z34.80 [facility] [address] [facility] [id number] [address] [place] [address] Apr, [facility] [address] [facility] [id number] [address] [place] [address] 14 Apr, 2018 [facility] [address] [id number] [address] [place] [address] Apr, [facility] [address] [id number] [address] [place] [address] 07 Apr, 2018 Encounter for test Z32.00 [facility] [address] [facility] [id number] [address] [place] [address] Feb, Irritant contact dermatitis due to other chemical products L24.5 [facility] [address] [id number] [address] [place] [address] Feb, Frequent headaches R51 [facility] [address] [id number] [address] [place] [address] Feb, Frequent headaches R51 [facility] [place] [address] [facility] [id number] [address] [place] [address] Aug, Other viral agents as the ca use of diseases classified elsewhere B97.89 and Acute upper respiratory infection, unspecified J06.9 [place] [address] [id number] [address] [place] [address] Feb, Pyelonephritis N12 [place] [address] [facility] [id number] [address] [place] [address] Nov, Leukorrhea N89.8 ; Acute vag initis N76.0 and Other specified bacterial agents as the cause of diseases classified elsewhere B96.89 [place] [address] [id number] [address] [place] [address] Oct, Right ovarian cyst N83.20 [place] [address] [id number] [address] [place] [address] Sep, [place] [address] [facility] [id number] [address] [place] [address] Aug, [place] [address] [facility] [id number] [address] [place] [address] Aug, Right ovarian cyst N83.20 [place] [address] [address] 11 Aug, 2015 Encounter for insertion of i ntrauterine contraceptive device Z30.430 [place] [address] [address] 07 Aug, 2015 Encounter for counseling reg arding contraception Z30.9 [place] [address] [address] 04 Aug, 2015 [place] [address] [address] 18 Jul, 2015 Well woman exam Z01.419 ; We ight gain R63.5 and BMI 27.0-27.9,adult Z68.[address] [address] 18 Jul, 2015 Erythema nodosum L52 and Fat igue R53.[address] [address] 16 Jul, 2015 Erythema nodosum L52 [address] [address] 30 Jun, 2015 General counseling and advic e for contraceptive management Z30.09 and OCP (oral contraceptive pills) initiation Z30.[address] [address] 27 Jun, 2015 Bug bites W57.XXXA and Itchi ng L29.[address] [address] 19 Jun, 2015 Well woman exam Z01.419 ; We ight gain R63.5 and BMI 27.0-27.9,adult Z68.27 [place] [address] [address] 27 May, 2015 Ankle pain, left M25.572 [facility] [address] [place] [id number] [address] [place] [id number] December, Dental examination V72.2 [facility] [address] [id number] [address] [place] [id number] December, Dental examination V72.2 [facility] [address] [id number] [address] [place] [address] Nov, [facility] [address] [id number] [address] [place] [address], [place] [address] Nov, [facility] [address] [id number] [address] [place] [address] Sep, [facility] [address] [id number] [address] [place] [address], [place] [address] Sep, [facility] [address] [id number] [address] [place] [address] Sep, [facility] [address] [id number] [address] [place] [address] Sep, [facility] [address] [id number] [address] [place] [address] Jun, [facility] [address] [id number] [address] [place] [address] Jun, [facility] [address] [id number] [address] [place] [address] May, [facility] [address] [id number] [address] [place] [address] May, [facility] [address] [id number] [address] [place] [address] Apr, [facility] [address] [id number] [address] [place] [address] Apr, [facility] [address] [id number] [address] [place] [address], [place] [address] Apr, [facility] [address] [id number] [address] [place] [address] Apr, [facility] [address] [id number] [address] [place] [address], [place] [address] Mar, [facility] [address] [id number] [address] [place] [address], [place] [address] Mar, [facility] [address] [id number] [address] [place] [address], [place] [address] December, [facility] [address] [id number] [address] [place] [address], [place] [address] December, [facility] [address] [id number] [address] [place] [address], [place] [address] Nov, [facility] [address] [id number] [address] [place] [address], [place] [address] Nov, [facility] [address] [id number] [address] [place] [address], [place] [address] Sep, [facility] [address] [id number] [address] [place] [address], [place] [address] Sep, [facility] [address] [id number] [address] [place] [address], [place] [address] Sep, [facility] [address] [id number] [address] [place] [address], [place] [address] Sep, [facility] [address] [id number] [address] [place] [address], [place] [address] Sep, [facility] [address] [id number] [address] [place] [address], [place] [address] Sep, [facility] [address] [id number] [address] [place] [address], [place] [address] Aug, [facility] [address] [id number] [address] [place] [address], [place] [address] Aug, [facility] [address] [id number] [address] [place] [address], [place] [address] Aug, [facility] [address] [id number] [address] [place] [address], [place] [address] Aug, [facility] [address] [id number] [address] [place] [address], [place] [address] Aug, [facility] [address] [id number] [address] [place] [address], [place] [address] Aug, [facility] [address] [id number] [address] [place] [address], [place] [address] Aug, [facility] [address] [id number] [address] [place] [address], [place] [address] Aug, [facility] [address] [id number] [address] [place] [address], [place] [address] Jun, [facility] [address] [id number] [address] [place] [address], [place] [address] Jun, [facility] [address] [id number] [address] [place] [address], [place] [address] Jan, [facility] [address] [id number] [address] [place] [address], [place] [address] Jan, [facility] [address] [id number] [address] [place] [address], [place] [address] Oct, [facility] [address] [id number] [address] [place] [address], [place] [address] Oct, [facility] [address] [id number] [address] [place] [address], [place] [address] Oct, [facility] [address] [id number] [address] [place] [address], [place] [address] Oct, [facility] [address] [id number] [address] [place] [address], [place] [address] Oct, [facility] [address] [id number] [address] [place] [address], [place] [address] Sep, [facility] [address] [id number] [address] [place] [address], [place] [address] Sep, [facility] [address] [facility] [id number] [address] [place] [address] Sep, [facility] [address] [facility] [id number] [address] [place] [address] May, [facility] [address] [facility] [id number] [address] [place] [address] May, [facility] [address] [facility] [id number] [address] [place] [address] May, [facility] [address] [facility] [id number] [address] [place] [address] Jan, [facility] [address] [facility] [id number] [address] [place] [address] Aug, IMMUNIZATIONS No Known Immunizations SOCIAL HISTORY Never Assessed REASON FOR VISIT PLAN OF CARE VITAL SIGNS MEDICATIONS No Known Medications RESULTS No Results PROCEDURES Procedure Date Ordered Result Body Site Medroxyprogesterone inj February 05, 2013 URINE TEST February 05, 2013 INSTRUCTIONS MEDICATIONS ADMINISTERED No Known Medications MEDICAL (GENERAL) HISTORY Type Description Date Surgical History No know Surgical history Hospitalization History childbirth 2008 Hospitalization History childbirth 2019
--- OUTSIDE RECORDS SUMMARY | 2020-03-13 11:55 | XMS REPORT ---
Author Author Chiquita Chester Organization [facility] Address [address] [place] [address] Care Team Providers Care Coke Crane Operator Name Role Phone AME Chester Unavailable PROBLEMS Type Condition ICD9-CM Code [id number] Code Onset Dates Condition S tatus SNOMED Code Problem Encounter for insertion of intrauterine contraceptive device Z30.430 Active 74833858 Problem Microcytic anemia D50.9 Active 23 9342470 Problem Itching L29.9 Active 386128264 Problem Bug bites W57.XXXA Active 021535218 ALLERGIES No Information ENCOUNTERS Encounter Location Date Diagnosis [facility] [address] [place] [address] Feb, Viral upper respiratory trac t infection J06.9 [facility] [address] [place] [id number] [address] [place] [address] May, [place] [address] [address] May, care in second trimester Z34.92 [place] [address] [address] May, Microcytic anemia D50.9 [facility] [address] [address] May, Microcytic anemia D50.9 [place] [address] [address] Apr, Multigravida in first trimester Z34.81 a nd Normal in multigravida Z34.80 [place] [address] [address] Apr, [place] [address] [place] [address] 14 Apr, 2018 [facility] [address] [place] [id number] [place] [address] Apr, [place] [address] [place] [id number] [place] [address] 07 Apr, 2018 Encounter for test Z32.00 [facility] [address] [facility] [id number] [address] [place] [address] Feb, Irritant contact dermatitis due to other chemical products L24.5 [place] [address] [place] [id number] [place] [address] Feb, Frequent headaches R51 [facility] N [facility] [id number] [address] [place] [address] Feb, Frequent headaches R51 [facility] N [facility] [id number] [address] [place] [address] Aug, Other viral agents as the ca use of diseases classified elsewhere B97.89 and Acute upper respiratory infection, unspecified J06.9 [place] [address] [place] [id number] [place] [address] Feb, Pyelonephritis N12 [place] [address] [address] Nov, Leukorrhea N89.8 ; Acute vaginitis N76.0 and Other specified bacterial agents as the cause of diseases classified elsewhere B96.89 [place] [address] [place] [id number] [place] [address] Oct, Right ovarian cyst N83.20 [place] [address] [place] [id number] [place] [address] Sep, [place] [address] [address] Aug, [place] [address] [address] Aug, Right ovarian cyst N83.20 [place] [address] [address] 11 Aug, 2015 Encounter for insertion of intrauterine contraceptive device Z30.430 [place] [address] [place] [id number] 07 Aug, 2015 Encounter for counseling regarding contr aception Z30.[address] [address] 04 Aug, [address] [address] 18 Jul, 2015 Well woman exam Z01.419 ; Weight gain R6 3.5 and BMI 27.0-27.9,adult Z68.[address] [address] 18 Jul, 2015 Erythema nodosum L52 and Fatigue R53.[address] [address] 16 Jul, 2015 Erythema nodosum L52 [address] [address] 30 Jun, 2015 General counseling and advice for contra ceptive management Z30.09 and OCP (oral contraceptive pills) initiation Z30.[address] [address] 27 Jun, 2015 Bug bites W57.XXXA and Itching L29.[address] [address] 19 Jun, 2015 Well woman exam Z01.419 ; Weight gain R6 3.5 and BMI 27.0-27.9,adult Z68.[address] [address] 27 May, 2015 Ankle pain, left M25.572 [facility] [address] [id number] December, Dental examination V72.2 [facility] [address] [id number] December, Dental examination V72.2 [facility] [address] [id number] [place] [address] Nov, [facility] [address] [id number] [place] [address] Nov, [facility] [address] [id number] [place] [address] Sep, [facility] [address] [id number] [place] [address] Sep, [facility] [address] [id number] [place] [address] Sep, [facility] [address] [id number] [place] [address] Sep, [facility] [address] [id number] [place] [address] Jun, [facility] [address] [id number] [place] [address] Jun, [facility] [address] [id number] [place] [address] May, [facility] [address] [id number] [place] [address] May, [facility] [address] [id number] [place] [address] Apr, [facility] [address] [id number] [place] [address] Apr, [facility] [address] [id number] [place] [address] Apr, [facility] [address] [id number] [place] [address] Apr, [facility] [address] [id number] [place] [address] Mar, [facility] [address] [id number] [place] [address] Mar, [facility] [address] [id number] [place] [address] December, [facility] [address] [facility] [id number] [place] [address] December, [facility] [address] [id number] [place] [address] Nov, [facility] [address] [id number] [place] [address] Nov, [facility] [address] [id number] [place] [address] Sep, [facility] [address] [id number] [place] [address] Sep, [facility] [address] [id number] [place] [address] Sep, [facility] [address] [id number] [place] [address] Sep, [facility] [address] [id number] [place] [address] Sep, [facility] [address] [id number] [place] [address] Sep, [facility] [address] [id number] [place] [address] Aug, [facility] [address] [id number] [place] [address] Aug, [facility] [address] [id number] [place] [address] Aug, [facility] [address] [id number] [place] [address] Aug, [facility] [address] [id number] [place] [address] Aug, [facility] [address] [id number] [place] [address] Aug, [facility] [address] [id number] [place] [address] Aug, [facility] [address] [facility] [id number] [place] [address] Aug, [facility] [address] [facility] [id number] [place] [address] Jun, [facility] [address] [id number] [place] [address] Jun, [facility] [address] [id number] [place] [address] Jan, [facility] [address] [facility] [id number] [place] [address] Jan, [facility] [address] [id number] [place] [address] Oct, [facility] [address] [id number] [place] [address] Oct, [facility] [address] [id number] [place] [address] Oct, [facility] [address] [id number] [place] [address] Oct, [facility] [address] [id number] [place] [address] Oct, [facility] [address] [id number] [place] [address] Sep, [facility] [address] [id number] [place] [address] Sep, [facility] [address] [id number] [place] [address] Sep, [facility] [address] [id number] [place] [address] May, [facility] [address] [id number] [place] [address] May, [facility] [address] [id number] [place] [address] May, [facility] [address] [id number] [place] [address] Jan, [facility] [address] [facility] [id number] [place] [address] Aug, IMMUNIZATIONS No Known Immunizations SOCIAL HISTORY Never Assessed REASON FOR VISIT PLAN OF CARE VITAL SIGNS MEDICATIONS No Known Medications RESULTS No Results PROCEDURES No Known procedures INSTRUCTIONS MEDICATIONS ADMINISTERED No Known Medications MEDICAL (GENERAL) HISTORY Type Description Date Surgical History No know Surgical history Hospitalization History childbirth 2008 Hospitalization History childbirth 2019
--- OUTSIDE RECORDS SUMMARY | 2020-03-13 11:55 | XMS REPORT ---
Author Author Chiquita Hernandez Doctor Organization [facility] Address Unknown Phone Unavailable Care Team Providers Care Rougher For Cement Name Role Phone Migration, Doctor Unavailable Unavailable PROBLEMS Type Condition ICD9-CM Code [id number] Code Onset Dates Condition S tatus SNOMED Code Problem Encounter for insertion of intrauterine contraceptive device Z30.430 Active 71117988 Problem Microcytic anemia D50.9 Active 23 3451825 Problem Itching L29.9 Active 020943775 Problem Bug bites W57.XXXA Active [id number] ALLERGIES No Information ENCOUNTERS Encounter Location Date Diagnosis [facility] [address] [facility] [id number] [address] [place] [id number] Feb, Viral upper respiratory trac t infection J06.9 [facility] [address] [facility] [id number] [address] [place] [id number] May, [facility] [address] [facility] [id number] [address] [place] [id number] May, care in second trim elizabeth Z34.92 [facility] [address] [facility] [id number] [address] [place] [phone] May, Microcytic anemia D50.9 [facility] [address] [place] [id number] [address] [place] [id number] May, Microcytic anemia D50.9 [facility] [address] [facility] [id number] [address] [place] [id number] 26 Apr, 2018 Multigravida in first trimes ter Z34.81 and Normal in multigravida Z34.80 [facility] [address] [facility] [id number] [address] [place] [id number] Apr, [facility] [address] [facility] [id number] [address] [place] [id number] 14 Apr, 2018 [facility] [address] [id number] [address] [place] [id number] Apr, [facility] [address] [id number] [address] [place] [id number] 07 Apr, 2018 Encounter for test Z32.00 [facility] [address] [facility] [id number] [address] [place] [id number] Feb, Irritant contact dermatitis due to other chemical products L24.5 [facility] [address] [id number] [address] [place] [phone] Feb, Frequent headaches R51 [facility] [address] [id number] [address] [place] [id number] Feb, Frequent headaches R51 [facility] [place] [address] [facility] [id number] [address] [place] [id number] Aug, Other viral agents as the ca use of diseases classified elsewhere B97.89 and Acute upper respiratory infection, unspecified J06.9 [place] [address] [id number] [address] [place] [id number] Feb, Pyelonephritis N12 [place] [address] [facility] [id number] [address] [place] [id number] Nov, Leukorrhea N89.8 ; Acute vag initis N76.0 and Other specified bacterial agents as the cause of diseases classified elsewhere B96.89 [place] [address] [id number] [address] [place] [id number] Oct, Right ovarian cyst N83.20 [place] [address] [id number] [address] [place] [id number] Sep, [place] [address] [facility] [id number] [address] [place] [id number] Aug, [place] [address] [facility] [id number] [address] [place] [id number] Aug, Right ovarian cyst N83.20 [place] [address] [id number] 11 Aug, 2015 Encounter for insertion of i ntrauterine contraceptive device Z30.430 [place] [address] [id number] 07 Aug, 2015 Encounter for counseling reg arding contraception Z30.9 [place] [address] [id number] 04 Aug, 2015 [place] [address] [id number] 18 Jul, 2015 Well woman exam Z01.419 ; We ight gain R63.5 and BMI 27.0-27.9,adult Z68.[address] [address] 18 Jul, 2015 Erythema nodosum L52 and Fat igue R53.[address] [id number] 16 Jul, 2015 Erythema nodosum L52 [address] [address] 30 Jun, 2015 General counseling and advic e for contraceptive management Z30.09 and OCP (oral contraceptive pills) initiation Z30.[address] [id number] 27 Jun, 2015 Bug bites W57.XXXA and Itchi ng L29.[address] [address] 19 Jun, 2015 Well woman exam Z01.419 ; We ight gain R63.5 and BMI 27.0-27.9,adult Z68.27 [place] [address] [id number] 27 May, 2015 Ankle pain, left M25.572 [facility] [address] [place] [id number] [address] [place] [id number] December, Dental examination V72.2 [facility] [address] [id number] [address] [place] [id number] December, Dental examination V72.2 [facility] [address] [id number] [address] [place] [phone] Nov, [facility] [address] [id number] [address] [place] [address], [place] [address] Nov, [facility] [address] [id number] [address] [place] [phone] Sep, [facility] [address] [id number] [address] [place] [address], [place] [address] Sep, [facility] [address] [id number] [address] [place] [phone] Sep, [facility] [address] [id number] [address] [place] [phone] Sep, [facility] [address] [id number] [address] [place] [id number] Jun, [facility] [address] [id number] [address] [place] [phone] Jun, [facility] [address] [id number] [address] [place] [phone] May, [facility] [address] [id number] [address] [place] [id number] May, [facility] [address] [id number] [address] [place] [id number] Apr, [facility] [address] [id number] [address] [place] [phone] Apr, [facility] [address] [id number] [address] [place] [address], [place] [address] Apr, [facility] [address] [id number] [address] [place] [phone] Apr, [facility] [address] [id number] [address] [place] [address], [place] [address] Mar, [facility] [address] [id number] [address] [place] [address], [place] [address] Mar, [facility] [address] [id number] [address] [place] [address], [place] [address] December, [facility] [address] [id number] [address] [place] [address], [place] [address] December, [facility] [address] [id number] [address] [place] [address], [place] [address] Nov, [facility] [address] [id number] [address] [place] [address], [place] [address] Nov, [facility] [address] [id number] [address] [place] [address], [place] [address] Sep, [facility] [address] [id number] [address] [place] [address], [place] [address] Sep, [facility] [address] [id number] [address] [place] [address], [place] [address] Sep, [facility] [address] [id number] [address] [place] [place] [address], [place] [address] Sep, [facility] [address] [id number] [address] [place] [place] [address], [place] [address] Sep, [facility] [address] [id number] [address] [place] [place] [address], [place] [address] Sep, [facility] [address] [id number] [address] [place] [address], [place] [address] Aug, [facility] [address] [id number] [address] [place] [address], [place] [address] Aug, [facility] [address] [id number] [address] [place] [address], [place] [address] Aug, [facility] [address] [id number] [address] [place] [address], [place] [address] Aug, [facility] [address] [id number] [address] [place] [address], [place] [address] Aug, [facility] [address] [id number] [address] [place] [address], [place] [address] Aug, [facility] [address] [id number] [address] [place] [address], [place] [address] Aug, [facility] [address] [id number] [address] [place] [place] [address], [place] [address] Aug, [facility] [address] [id number] [address] [place] [place] [address], [place] [address] Jun, [facility] [address] [id number] [address] [place] [address], [place] [address] Jun, [facility] [address] [id number] [address] [place] [place] [address], [place] [address] Jan, [facility] [address] [id number] [address] [place] [place] [address], [place] [address] Jan, [facility] [address] [id number] [address] [place] [place] [address], [place] [address] Oct, [facility] [address] [id number] [address] [place] [place] [address], [place] [address] Oct, [facility] [address] [id number] [address] [place] [address], [place] [address] Oct, [facility] [address] [id number] [address] [place] [address], [place] [address] Oct, [facility] [address] [id number] [address] [place] [address], [place] [address] Oct, [facility] [address] [id number] [address] [place] [address], [place] [address] Sep, [facility] [address] [id number] [address] [place] [address], [place] [address] Sep, [facility] [address] [facility] [id number] [address] [place] [phone] Sep, [facility] [address] [facility] [id number] [address] [place] [phone] May, [facility] [address] [facility] [id number] [address] [place] [phone] May, [facility] [address] [facility] [id number] [address] [place] [id number] May, [facility] [address] [facility] [id number] [address] [place] [id number] Jan, [facility] [address] [facility] [id number] [address] [place] [id number] Aug, IMMUNIZATIONS No Known Immunizations SOCIAL HISTORY Never Assessed REASON FOR VISIT PLAN OF CARE VITAL SIGNS MEDICATIONS No Known Medications RESULTS No Results PROCEDURES Procedure Date Ordered Result Body Site THER/PROPH/DIAG INJ, SC/IM Jul 22, 2013 Medroxyprogesterone inj Jul 22, 2013 URINE TEST Jul 22, 2013 INSTRUCTIONS MEDICATIONS ADMINISTERED No Known Medications MEDICAL (GENERAL) HISTORY Type Description Date Surgical History No know Surgical history Hospitalization History childbirth 2008 Hospitalization History childbirth 2018
--- OUTSIDE RECORDS SUMMARY | 2020-03-13 11:55 | XMS REPORT ---
Author Author Chiquita VARGAS [facility] Address [address] [place] [address] Care Team Providers Care Outdoor Studies Professor Name Role Phone BAO VARGAS Unavailable PROBLEMS Type Condition ICD9-CM Code ARX97-IB Code Onset Dates Condition S tatus SNOMED Code Problem Encounter for insertion of intrauterine contraceptive device Z30.430 Active 05388513 Problem Microcytic anemia D50.9 Active 23 4446282 Problem Itching L29.9 Active 073911149 Problem Bug bites W57.XXXA Active [id number] ALLERGIES No Information ENCOUNTERS Encounter Location Date Diagnosis [facility] [address] [place] [id number] [address] [place] [address] Feb, Viral upper respiratory trac t infection J06.9 [facility] [address] [facility] [id number] [address] [place] [address] May, [facility] [address] [id number] [address] [place] [address] May, care in second trim elizabeth Z34.92 [facility] [address] [id number] [address] [place] [address] May, Microcytic anemia D50.9 [facility] [address] [facility] [id number] [address] [place] [address] May, Microcytic anemia D50.9 [facility] [address] [place] [id number] [address] [place] [address] Apr, Multigravida in first trimes ter Z34.81 and Normal in multigravida Z34.80 [facility] [address] [place] [address] [id number] [address] [place] [address] Apr, [place] [address] [id number] [address] [place] [address] 14 Apr, 2018 [facility] [address] [id number] [address] [place] [address] 11 Apr, 2018 [facility] [address] [facility] [id number] [address] [place] [address] 07 Apr, 2018 Encounter for test Z32.00 [facility] [address] [facility] [id number] [address] [place] [address] Feb, Irritant contact dermatitis due to other chemical products L24.5 [facility] [address] [id number] [address] [place] [address] Feb, Frequent headaches R51 [facility] [address] [facility] [id number] [address] [place] [address] Feb, Frequent headaches R51 [facility] [address] [facility] [id number] [address] [place] [address] Aug, Other viral agents as the ca use of diseases classified elsewhere B97.89 and Acute upper respiratory infection, unspecified J06.9 [facility] [address] [facility] [id number] [address] [place] [address] Feb, Pyelonephritis [address] [place] 168491 [address] [facility] [id number] [address] [place] [address] Nov, Leukorrhea N89.8 ; Acute vag initis N76.0 and Other specified bacterial agents as the cause of diseases classified elsewhere B96.89 [facility] [address] [id number] [address] [place] [address] Oct, Right ovarian cyst N83.20 [place] [address] [facility] [id number] [address] [place] [address] Sep, [facility] [address] [facility] [id number] [address] [place] [address] Aug, [facility] [address] [facility] [id number] [address] [place] [address] 13 Aug, 2015 Right ovarian cyst N83.20 [place] [address] [address] 11 Aug, 2015 Encounter for insertion of i ntrauterine contraceptive device Z30.430 [place] [address] [address] 07 Aug, 2015 Encounter for counseling reg arding contraception Z30.9 [place] [address] [address] 04 Aug, 2015 [place] [address] [address] 18 Jul, 2015 Well woman exam Z01.419 ; We ight gain R63.5 and BMI 27.0-27.9,adult Z68.[address] [address] 18 Jul, 2015 Erythema nodosum L52 and Fat igue R53.83 [place] [address] [address] 16 Jul, 2015 Erythema nodosum L52 [place] [address] [address] 30 Jun, 2015 General counseling and advic e for contraceptive management Z30.09 and OCP (oral contraceptive pills) initiation Z30.011 [place] [address] [address] 27 Jun, 2015 Bug bites W57.XXXA and Itchi ng L29.9 [place] [address] [place] [address] 19 Jun, 2015 Well woman exam Z01.419 ; We ight gain R63.5 and BMI 27.0-27.9,adult Z68.27 [place] [address] [place] [id number] [address] [place] [address] 27 May, 2015 Ankle pain, left M25.572 [facility] [address] [id number] [address] [place] [id number] December, Dental examination V72.2 [facility] [address] [id number] [address] [place] [address] [id number] December, Dental examination V72.2 [facility] [address] [id number] [address] [place] [address] Nov, [facility] [address] [id number] [address] [place] [address] Nov, [facility] [address] [id number] [address] [place] [address] Sep, [facility] [address] [id number] [address] [place] [address] Sep, [facility] [address] [id number] [address] [place] [address] Sep, [facility] [address] [id number] [address] [place] [address] Sep, [facility] [address] [id number] [address] [place] [address] Jun, [facility] [address] [id number] [address] [place] [address] Jun, [facility] [address] [id number] [address] [place] [address] May, [facility] [address] [id number] [address] [place] [address] May, [facility] [address] [id number] [address] [place] [address] Apr, [facility] [address] [id number] [address] [place] [address] Apr, [facility] [address] [id number] [address] [place] [address] Apr, [facility] [address] [id number] [address] [place] [address], [place] [address] Apr, [facility] [address] [id number] [address] [place] [address], [place] [address] Mar, [facility] [address] [id number] [address] [place] [address], [place] [address] Mar, [facility] [address] [id number] [address] [place] [address], [place] [address] December, [facility] [address] [id number] [address] [place] [address], [place] [address] December, [facility] [address] [id number] [address] [place] [address], [place] [address] Nov, [facility] [address] [id number] [address] [place] [address], [place] [address] Nov, [facility] [address] [id number] [address] [place] [address], [place] [address] Sep, [facility] [address] [id number] [address] [place] [address], [place] [address] Sep, [facility] [address] [id number] [address] [place] [address], [place] [address] Sep, [facility] [address] [id number] [address] [place] [address], [place] [address] Sep, [facility] [address] [id number] [address] [place] [address], [place] [address] Sep, [facility] [address] [id number] [address] [place] [address], [place] [address] Sep, [facility] [address] [id number] [address] [place] [address], [place] [address] Aug, [facility] [address] [id number] [address] [place] [address], [place] [address] Aug, [facility] [address] [id number] [address] [place] [address], [place] [address] Aug, [facility] [address] [id number] [address] [place] [address], [place] [address] Aug, [facility] [address] [id number] [address] [place] [address], [place] [address] Aug, [facility] [address] [id number] [address] [place] [address], [place] [address] Aug, [facility] [address] [id number] [address] [place] [address], [place] [address] Aug, [facility] [address] [id number] [address] [place] [address], [place] [address] Aug, [facility] [address] [id number] [address] [place] [address], [place] [address] Jun, [facility] [address] [id number] [address] [place] [address], [place] [address] Jun, [facility] [address] [id number] [address] [place] [address], [place] [address] Jan, [facility] [address] [id number] [address] [place] [address], [place] [address] Jan, [facility] [address] [id number] [address] [place] [address], [place] [address] Oct, [facility] [address] [id number] [address] [place] [address], [place] [address] Oct, [facility] [address] [id number] [address] [place] [address], [place] [address] Oct, [facility] [address] [id number] [address] [place] [address], [place] [address] Oct, [facility] [address] [id number] [address] [place] [address], [place] [address] Oct, [facility] [address] [id number] [address] [place] [address], [place] [address] Sep, [facility] [address] [id number] [address] [place] [address] Sep, [facility] [address] [facility] [id number] [address] [place] [address] Sep, [facility] [address] [facility] [id number] [address] [place] [address] May, [facility] [address] [facility] [id number] [address] [place] [address] May, [facility] [address] [facility] [id number] [address] [place] [address] May, [facility] [address] [facility] [id number] [address] [place] [address] Jan, [facility] [address] [facility] [id number] [address] [place] [address] Aug, IMMUNIZATIONS No Known Immunizations SOCIAL HISTORY Never Assessed REASON FOR VISIT PLAN OF CARE VITAL SIGNS MEDICATIONS No Known Medications RESULTS No Results PROCEDURES No Known procedures INSTRUCTIONS MEDICATIONS ADMINISTERED No Known Medications MEDICAL (GENERAL) HISTORY Type Description Date Surgical History No know Surgical history Hospitalization History childbirth 2008 Hospitalization History childbirth 2019
--- OUTSIDE RECORDS SUMMARY | 2020-03-13 11:55 | XMS REPORT ---
Author Author Chiquita Chester Organization [facility] Address [address] [place] [address] Care Team Providers Care Raw Mill Operator Name Role Phone AME Chester Unavailable PROBLEMS Type Condition ICD9-CM Code SQC37-AS Code Onset Dates Condition S tatus SNOMED Code Problem Encounter for insertion of intrauterine contraceptive device Z30.430 Active 43609752 Problem Microcytic anemia D50.9 Active 23 6622950 Problem Itching L29.9 Active 349614774 Problem Bug bites W57.XXXA Active [id number] ALLERGIES No Information ENCOUNTERS Encounter Location Date Diagnosis [facility] [address] [place] [address] Feb, Viral upper respiratory trac t infection J06.9 [facility] [address] [facility] [id number] [address] [place] [address] May, [facility] [address] [place] [address] [id number] [address] [place] [address] May, care in second trim elizabeth Z34.92 [facility] [address] [place] [address] [id number] [address] [place] [address] May, Microcytic anemia D50.9 [facility] [address] [place] [id number] [address] [place] [address] May, Microcytic anemia D50.9 [facility] [address] [place] [id number] [address] [place] [address] Apr, Multigravida in first trimes ter Z34.81 and Normal in multigravida Z34.80 [facility] [address] [place] [address] [id number] [address] [place] [address] Apr, [facility] [address] [id number] [address] [place] [address] 14 Apr, 2018 [facility] [address] [id number] [address] [place] [address] 11 Apr, 2018 [facility] [address] [id number] [address] [place] [address] 07 Apr, 2018 Encounter for test Z32.00 [facility] [address] [id number] [address] [place] [address] Feb, Irritant contact dermatitis due to other chemical products L24.5 [facility] [address] [id number] [address] [place] [address] Feb, Frequent headaches R51 [facility] [address] [facility] [id number] [address] [place] [address] Feb, Frequent headaches R51 [facility] [address] [facility] [id number] [address] [place] [address] Aug, Other viral agents as the ca use of diseases classified elsewhere B97.89 and Acute upper respiratory infection, unspecified J06.9 [facility] [address] [id number] [address] [place] [address] Feb, Pyelonephritis [address] [place] [address] [address] [facility] [id number] [address] [place] [address] Nov, Leukorrhea N89.8 ; Acute vag initis N76.0 and Other specified bacterial agents as the cause of diseases classified elsewhere B96.89 [facility] [address] [id number] [address] [place] [address] Oct, Right ovarian cyst N83.20 [place] [address] [id number] [address] [place] [address] Sep, [facility] [address] [facility] [id number] [address] [place] [address] Aug, [place] [address] [address] 13 Aug, 2015 Right ovarian cyst N83.20 [place] [address] [address] 11 Aug, 2015 Encounter for insertion of i ntrauterine contraceptive device Z30.430 [place] [address] [address] 07 Aug, 2015 Encounter for counseling reg arding contraception Z30.9 [place] [address] [address] 04 Aug, 2015 [place] [address] [address] 18 Jul, 2015 Well woman exam Z01.419 ; We ight gain R63.5 and BMI 27.0-27.9,adult Z68.[address] [address] 18 Jul, 2015 Erythema nodosum L52 and Fat igue R53.83 [place] [address] [address] 16 Jul, 2015 Erythema nodosum L52 [place] [address] [address] 30 Jun, 2015 General counseling and advic e for contraceptive management Z30.09 and OCP (oral contraceptive pills) initiation Z30.011 [place] [address] [address] 27 Jun, 2015 Bug bites W57.XXXA and Itchi ng L29.9 [place] [address] [address] 19 Jun, 2015 Well woman exam Z01.419 ; We ight gain R63.5 and BMI 27.0-27.9,adult Z68.27 [place] [address] [address] 27 May, 2015 Ankle pain, left M25.572 [facility] [address] [id number] [place] [id number] December, Dental examination V72.2 [facility] [address] [id number] [address] [place] [address] [id number] December, Dental examination V72.2 [facility] [address] [id number] [address] [place] [address] Nov, [facility] [address] [id number] [address] [place] [address] Nov, [facility] [address] [id number] [address] [place] [address] Sep, [facility] [address] [id number] [address] [place] [address] Sep, [facility] [address] [id number] [address] [place] [address] Sep, [facility] [address] [id number] [address] [place] [address] Sep, [facility] [address] [id number] [address] [place] [address] Jun, [facility] [address] [id number] [address] [place] [address] Jun, [facility] [address] [id number] [address] [place] [address] May, [facility] [address] [id number] [address] [place] [address] May, [facility] [address] [id number] [address] [place] [address] Apr, [facility] [address] [id number] [address] [place] [address] Apr, [facility] [address] [id number] [address] [place] [address] Apr, [facility] [address] [id number] [address] [place] [address], [place] [address] Apr, [facility] [address] [id number] [address] [place] [address], [place] [address] Mar, [facility] [address] [id number] [address] [place] [address], [place] [address] Mar, [facility] [address] [id number] [address] [place] [address], [place] [address] December, [facility] [address] [id number] [address] [place] [address], [place] [address] December, [facility] [address] [id number] [address] [place] [address], [place] [address] Nov, [facility] [address] [id number] [address] [place] [address], [place] [address] Nov, [facility] [address] [id number] [address] [place] [address], [place] [address] Sep, [facility] [address] [id number] [address] [place] [address], [place] [address] Sep, [facility] [address] [id number] [address] [place] [address], [place] [address] Sep, [facility] [address] [id number] [address] [place] [address], [place] [address] Sep, [facility] [address] [id number] [address] [place] [address], [place] [address] Sep, [facility] [address] [id number] [address] [place] [address], [place] [address] Sep, [facility] [address] [id number] [address] [place] [address], [place] [address] Aug, [facility] [address] [id number] [address] [place] [address], [place] [address] Aug, [facility] [address] [id number] [address] [place] [address], [place] [address] Aug, [facility] [address] [id number] [address] [place] [address], [place] [address] Aug, [facility] [address] [id number] [address] [place] [address], [place] [address] Aug, [facility] [address] [id number] [address] [place] [address], [place] [address] Aug, [facility] [address] [id number] [address] [place] [address], [place] [address] Aug, [facility] [address] [id number] [address] [place] [address], [place] [address] Aug, [facility] [address] [id number] [address] [place] [address], [place] [address] Jun, [facility] [address] [id number] [address] [place] [address], [place] [address] Jun, [facility] [address] [id number] [address] [place] [address], [place] [address] Jan, [facility] [address] [id number] [address] [place] [address], [place] [address] Jan, [facility] [address] [id number] [address] [place] [address], [place] [address] Oct, [facility] [address] [id number] [address] [place] [address], [place] [address] Oct, [facility] [address] [id number] [address] [place] [address], [place] [address] Oct, [facility] [address] [id number] [address] [place] [address], [place] [address] Oct, [facility] [address] [id number] [address] [place] [address], [place] [address] Oct, [facility] [address] [id number] [address] [place] [address], [place] [address] Sep, [facility] [address] [id number] [address] [place] [address] Sep, [facility] [address] [id number] [address] [place] [address] Sep, [facility] [address] [id number] [address] [place] [address] May, [facility] [address] [id number] [address] [place] [address] May, [facility] [address] [id number] [address] [place] [address] May, [facility] [address] [id number] [address] [place] [address] Jan, [facility] [address] [id number] [address] [place] [address] Aug, IMMUNIZATIONS No Known Immunizations SOCIAL HISTORY Never Assessed REASON FOR VISIT PLAN OF CARE VITAL SIGNS Height 62 in 2013-09-15 Weight 145.38 lbs 2013-09-15 Temperature 97.8 degrees Fahrenheit 2013-09-15 Heart Rate 80 bpm 2013-09-15 Respiratory Rate 18 2013-09-15 Blood pressure systolic 124 mmHg 2013-09-15 Blood pressure diastolic 80 mmHg 2013-09-15 MEDICATIONS No Known Medications RESULTS No Results PROCEDURES Procedure Date Ordered Result Body Site TRICHOMONAS VAGIN, DIR PROBE Sep 15, 2013 SCR PAP SMER;NEW PT OBTAIN PREP&CONVY-LAB Sep 15, 2013 CYTOPATH C/V AUTO FLUID REDO Sep 15, 2013 CHYLMD TRACH, DNA, AMP PROBE Sep 15, 2013 URINE TEST Sep 15, 2013 CULTURE, BACTERIA, OTHER Sep 15, 2013 INSTRUCTIONS MEDICATIONS ADMINISTERED No Known Medications MEDICAL (GENERAL) HISTORY Type Description Date Surgical History No know Surgical history Hospitalization History childbirth 2008 Hospitalization History childbirth 2018
--- OUTSIDE RECORDS SUMMARY | 2020-03-13 11:55 | XMS REPORT ---
Author Author Chiquita Chester Organization [facility] Address [address] [place] [address] Care Team Providers Care Para Machine Operator Name Role Phone AME Chester Unavailable PROBLEMS Type Condition ICD9-CM Code [id number] Code Onset Dates Condition S tatus SNOMED Code Problem Encounter for insertion of intrauterine contraceptive device Z30.430 Active 47540477 Problem Microcytic anemia D50.9 Active 23 7600229 Problem Itching L29.9 Active 236263226 Problem Bug bites W57.XXXA Active [id number] ALLERGIES No Information ENCOUNTERS Encounter Location Date Diagnosis [facility] [address] [place] [address] Feb, Viral upper respiratory trac t infection J06.9 [facility] IN [facility] [address] [place] [id number] [address] [place] [address] May, [place] [address] [address] May, care in second trimester Z34.92 [place] [address] [address] May, Microcytic anemia D50.9 [facility] [address] [address] May, Microcytic anemia D50.9 [place] [address] [address] Apr, Multigravida in first trimester Z34.81 a nd Normal in multigravida Z34.80 [place] [address] [address] Apr, [place] [address] [place] [address] 14 Apr, 2018 [facility] [address] [place] [id number] [place] [address] Apr, [place] [address] [place] [id number] [place] [address] 07 Apr, 2018 Encounter for test Z32.00 [facility] [address] [facility] [id number] [address] [place] [address] Feb, Irritant contact dermatitis due to other chemical products L24.5 [place] [address] [place] [id number] [place] [address] Feb, Frequent headaches R51 [facility] N [facility] [id number] [address] [place] [address] Feb, Frequent headaches R51 [facility] N [facility] [id number] [address] [place] [address] Aug, Other viral agents as the ca use of diseases classified elsewhere B97.89 and Acute upper respiratory infection, unspecified J06.9 [place] [address] [place] [id number] [place] [address] Feb, Pyelonephritis N12 [place] [address] [address] Nov, Leukorrhea N89.8 ; Acute vaginitis N76.0 and Other specified bacterial agents as the cause of diseases classified elsewhere B96.89 [place] [address] [place] [id number] [place] [address] Oct, Right ovarian cyst N83.20 [place] [address] [place] [id number] [place] [address] Sep, [place] [address] [address] Aug, [place] [address] [address] Aug, Right ovarian cyst N83.20 [place] [address] [address] 11 Aug, 2015 Encounter for insertion of intrauterine contraceptive device Z30.430 [place] [address] [place] [id number] 07 Aug, 2015 Encounter for counseling regarding contr aception Z30.[address] [address] 04 Aug, [address] [address] 18 Jul, 2015 Well woman exam Z01.419 ; Weight gain R6 3.5 and BMI 27.0-27.9,adult Z68.[address] [address] 18 Jul, 2015 Erythema nodosum L52 and Fatigue R53.[address] [address] 16 Jul, 2015 Erythema nodosum L52 [address] [address] 30 Jun, 2015 General counseling and advice for contra ceptive management Z30.09 and OCP (oral contraceptive pills) initiation Z30.[address] [address] 27 Jun, 2015 Bug bites W57.XXXA and Itching L29.[address] [address] 19 Jun, 2015 Well woman exam Z01.419 ; Weight gain R6 3.5 and BMI 27.0-27.9,adult Z68.[address] [address] 27 May, 2015 Ankle pain, left M25.572 [facility] [address] [id number] December, Dental examination V72.2 [facility] [address] [id number] December, Dental examination V72.2 [facility] [address] [id number] [place] [address] Nov, [facility] [address] [id number] [place] [address] Nov, [facility] [address] [id number] [place] [address] Sep, [facility] [address] [id number] [place] [address] Sep, [facility] [address] [id number] [place] [address] Sep, [facility] [address] [id number] [place] [address] Sep, [facility] [address] [id number] [place] [address] Jun, [facility] [address] [id number] [place] [address] Jun, [facility] [address] [id number] [place] [address] May, [facility] [address] [id number] [place] [address] May, [facility] [address] [id number] [place] [address] Apr, [facility] [address] [id number] [place] [address] Apr, [facility] [address] [id number] [place] [address] Apr, [facility] [address] [id number] [place] [address] Apr, [facility] [address] [id number] [place] [address] Mar, [facility] [address] [id number] [place] [address] Mar, [facility] [address] [id number] [place] [address] December, [facility] [address] [facility] [id number] [place] [address] December, [facility] [address] [id number] [place] [address] Nov, [facility] [address] [id number] [place] [address] Nov, [facility] [address] [id number] [place] [address] Sep, [facility] [address] [id number] [place] [address] Sep, [facility] [address] [id number] [place] [address] Sep, [facility] [address] [id number] [place] [address] Sep, [facility] [address] [id number] [place] [address] Sep, [facility] [address] [id number] [place] [address] Sep, [facility] [address] [id number] [place] [address] Aug, [facility] [address] [id number] [place] [address] Aug, [facility] [address] [id number] [place] [address] Aug, [facility] [address] [id number] [place] [address] Aug, [facility] [address] [id number] [place] [address] Aug, [facility] [address] [id number] [place] [address] Aug, [facility] [address] [id number] [place] [address] Aug, [facility] [address] [facility] [id number] [place] [address] Aug, [facility] [address] [facility] [id number] [place] [address] Jun, [facility] [address] [id number] [place] [address] Jun, [facility] [address] [id number] [place] [address] Jan, [facility] [address] [facility] [id number] [place] [address] Jan, [facility] [address] [id number] [place] [address] Oct, [facility] [address] [id number] [place] [address] Oct, [facility] [address] [id number] [place] [address] Oct, [facility] [address] [id number] [place] [address] Oct, [facility] [address] [id number] [place] [address] Oct, [facility] [address] [id number] [place] [address] Sep, [facility] [address] [id number] [place] [address] Sep, [facility] [address] [id number] [place] [address] Sep, [facility] [address] [id number] [place] [address] May, [facility] [address] [id number] [place] [address] May, [facility] [address] [id number] [place] [address] May, [facility] [address] [id number] [place] [address] Jan, [facility] [address] [facility] [id number] [place] [address] Aug, IMMUNIZATIONS No Known Immunizations SOCIAL HISTORY Never Assessed REASON FOR VISIT PLAN OF CARE VITAL SIGNS MEDICATIONS No Known Medications RESULTS No Results PROCEDURES No Known procedures INSTRUCTIONS MEDICATIONS ADMINISTERED No Known Medications MEDICAL (GENERAL) HISTORY Type Description Date Surgical History No know Surgical history Hospitalization History childbirth 2008 Hospitalization History childbirth 2019
--- OUTSIDE RECORDS SUMMARY | 2020-03-13 11:55 | XMS REPORT ---
Author Author Chiquita Chester Organization [facility] Address [address] [place] [address] Care Team Providers Care Smalltalk Developer Name Role Phone AME Chester Unavailable PROBLEMS Type Condition ICD9-CM Code PWP32-HV Code Onset Dates Condition S tatus SNOMED Code Problem Encounter for insertion of intrauterine contraceptive device Z30.430 Active 39674647 Problem Microcytic anemia D50.9 Active 23 1660625 Problem Itching L29.9 Active 507065658 Problem Bug bites W57.XXXA Active [id number] ALLERGIES No Information ENCOUNTERS Encounter Location Date Diagnosis [facility] [address] [place] [address] Feb, Viral upper respiratory trac t infection J06.9 [facility] [address] [place] [id number] [address] [place] [address] May, [place] [address] [address] May, care in second trimester Z34.92 [place] [address] [address] May, Microcytic anemia D50.9 [facility] [address] [address] May, Microcytic anemia D50.9 [place] [address] [address] Apr, Multigravida in first trimester Z34.81 a nd Normal in multigravida Z34.80 [place] [address] [address] Apr, [place] [address] [place] [address] 14 Apr, 2018 [facility] [address] [place] [id number] [place] [address] Apr, [place] [address] [place] [id number] [place] [address] 07 Apr, [address] Z32.[address] [facility] [address] [facility] [id number] [address] [place] [address] Feb, Irritant contact dermatitis due to other chemical products L24.5 [place] [address] [place] [id number] [place] [address] Feb, Frequent headaches R51 [facility] N [facility] [id number] [address] [place] [address] Feb, Frequent headaches R51 [facility] N [facility] [id number] [address] [place] [address] Aug, Other viral agents as the ca use of diseases classified elsewhere B97.89 and Acute upper respiratory infection, unspecified J06.9 [place] [address] [place] [id number] [place] [address] Feb, Pyelonephritis N12 [place] [address] [address] Nov, Leukorrhea N89.8 ; Acute vaginitis N76.0 and Other specified bacterial agents as the cause of diseases classified elsewhere B96.89 [place] [address] [place] [id number] [place] [address] Oct, Right ovarian cyst N83.20 [place] [address] [place] [id number] [place] [address] Sep, [place] [address] [address] Aug, [place] [address] [address] Aug, Right ovarian cyst N83.20 [place] [address] [address] 11 Aug, 2015 Encounter for insertion of intrauterine contraceptive device Z30.430 [place] [address] [place] [id number] 07 Aug, 2015 Encounter for counseling regarding contr aception Z30.[address] [address] 04 Aug, [address] [address] 18 Jul, 2015 Well woman exam Z01.419 ; Weight gain R6 3.5 and BMI 27.0-27.9,adult Z68.[address] [address] 18 Jul, 2015 Erythema nodosum L52 and Fatigue R53.[address] [address] 16 Jul, 2015 Erythema nodosum L52 [address] [address] 30 Jun, 2015 General counseling and advice for contra ceptive management Z30.09 and OCP (oral contraceptive pills) initiation Z30.[address] [address] 27 Jun, 2015 Bug bites W57.XXXA and Itching L29.[address] [address] 19 Jun, 2015 Well woman exam Z01.419 ; Weight gain R6 3.5 and BMI 27.0-27.9,adult Z68.[address] [address] 27 May, 2015 Ankle pain, left M25.572 [facility] [address] [id number] December, Dental examination V72.2 [facility] [address] [id number] December, Dental examination V72.2 [facility] [address] [id number] [place] [address] Nov, [facility] [address] [id number] [place] [address] Nov, [facility] [address] [id number] [place] [address] Sep, [facility] [address] [id number] [place] [address] Sep, [facility] [address] [id number] [place] [address] Sep, [facility] [address] [id number] [place] [address] Sep, [facility] [address] [id number] [place] [address] Jun, [facility] [address] [id number] [place] [address] Jun, [facility] [address] [id number] [place] [address] May, [facility] [address] [id number] [place] [address] May, [facility] [address] [id number] [place] [address] Apr, [facility] [address] [id number] [place] [address] Apr, [facility] [address] [id number] [place] [address] Apr, [facility] [address] [id number] [place] [address] Apr, [facility] [address] [id number] [place] [address] Mar, [facility] [address] [id number] [place] [address] Mar, [facility] [address] [id number] [place] [address] December, [facility] [address] [facility] [id number] [place] [address] December, [facility] [address] [id number] [place] [address] Nov, [facility] [address] [id number] [place] [address] Nov, [facility] [address] [id number] [place] [address] Sep, [facility] [address] [id number] [place] [address] Sep, [facility] [address] [id number] [place] [address] Sep, [facility] [address] [id number] [place] [address] Sep, [facility] [address] [id number] [place] [address] Sep, [facility] [address] [id number] [place] [address] Sep, [facility] [address] [id number] [place] [address] Aug, [facility] [address] [id number] [place] [address] Aug, [facility] [address] [id number] [place] [address] Aug, [facility] [address] [id number] [place] [address] Aug, [facility] [address] [id number] [place] [address] Aug, [facility] [address] [id number] [place] [address] Aug, [facility] [address] [id number] [place] [address] Aug, [facility] [address] [facility] [id number] [place] [address] Aug, [facility] [address] [facility] [id number] [place] [address] Jun, [facility] [address] [id number] [place] [address] Jun, [facility] [address] [id number] [place] [address] Jan, [facility] [address] [facility] [id number] [place] [address] Jan, [facility] [address] [id number] [place] [address] Oct, [facility] [address] [id number] [place] [address] Oct, [facility] [address] [id number] [place] [address] Oct, [facility] [address] [id number] [place] [address] Oct, [facility] [address] [id number] [place] [address] Oct, [facility] [address] [id number] [place] [address] Sep, [facility] [address] [id number] [place] [address] Sep, [facility] [address] [id number] [place] [address] Sep, [facility] [address] [id number] [place] [address] May, [facility] [address] [id number] [place] [address] May, [facility] [address] [id number] [place] [address] May, [facility] [address] [id number] [place] [address] Jan, [facility] [address] [facility] [id number] [place] [address] Aug, IMMUNIZATIONS No Known Immunizations SOCIAL HISTORY Never Assessed REASON FOR VISIT PLAN OF CARE VITAL SIGNS MEDICATIONS No Known Medications RESULTS No Results PROCEDURES No Known procedures INSTRUCTIONS MEDICATIONS ADMINISTERED No Known Medications MEDICAL (GENERAL) HISTORY Type Description Date Surgical History No know Surgical history Hospitalization History childbirth 2008 Hospitalization History childbirth 2019
--- OUTSIDE RECORDS SUMMARY | 2020-03-13 11:55 | XMS REPORT ---
Author Author Chiquita Hernandez Doctor Organization [facility] Address Unknown Phone Unavailable Care Team Providers Care Bridal Stylist Sales Consultant Name Role Phone Migration, Doctor Unavailable Unavailable PROBLEMS Type Condition ICD9-CM Code [id number] Code Onset Dates Condition S tatus SNOMED Code Problem Encounter for insertion of intrauterine contraceptive device Z30.430 Active 18907917 Problem Microcytic anemia D50.9 Active 23 8681758 Problem Itching L29.9 Active 485449976 Problem Bug bites W57.XXXA Active [id number] ALLERGIES No Information ENCOUNTERS Encounter Location Date Diagnosis [facility] [address] [facility] [id number] [address] [place] [address] Feb, Viral upper respiratory trac t infection J06.9 [facility] [address] [facility] [id number] [address] [place] [address] May, [facility] [address] [facility] [id number] [address] [place] [address] May, care in second trim elizabeth Z34.92 [facility] [address] [facility] [id number] [address] [place] [address] May, Microcytic anemia D50.9 [facility] [address] [place] [id number] [address] [place] [address] May, Microcytic anemia D50.9 [facility] [address] [facility] [id number] [address] [place] [address] 26 Apr, 2018 Multigravida in first trimes ter Z34.81 and Normal in multigravida Z34.80 [facility] [address] [facility] [id number] [address] [place] [address] Apr, [facility] [address] [facility] [id number] [address] [place] [address] 14 Apr, 2018 [facility] [address] [id number] [address] [place] [address] Apr, [facility] [address] [id number] [address] [place] [address] 07 Apr, 2018 Encounter for test Z32.00 [facility] [address] [facility] [id number] [address] [place] [address] Feb, Irritant contact dermatitis due to other chemical products L24.5 [facility] [address] [id number] [address] [place] [address] Feb, Frequent headaches R51 [facility] [address] [id number] [address] [place] [address] Feb, Frequent headaches R51 [facility] [place] [address] [facility] [id number] [address] [place] [address] Aug, Other viral agents as the ca use of diseases classified elsewhere B97.89 and Acute upper respiratory infection, unspecified J06.9 [place] [address] [id number] [address] [place] [address] Feb, Pyelonephritis N12 [place] [address] [facility] [id number] [address] [place] [address] Nov, Leukorrhea N89.8 ; Acute vag initis N76.0 and Other specified bacterial agents as the cause of diseases classified elsewhere B96.89 [place] [address] [id number] [address] [place] [address] Oct, Right ovarian cyst N83.20 [place] [address] [id number] [address] [place] [address] Sep, [place] [address] [facility] [id number] [address] [place] [address] Aug, [place] [address] [facility] [id number] [address] [place] [address] Aug, Right ovarian cyst N83.20 [place] [address] [address] 11 Aug, 2015 Encounter for insertion of i ntrauterine contraceptive device Z30.430 [place] [address] [address] 07 Aug, 2015 Encounter for counseling reg arding contraception Z30.9 [place] [address] [address] 04 Aug, 2015 [place] [address] [address] 18 Jul, 2015 Well woman exam Z01.419 ; We ight gain R63.5 and BMI 27.0-27.9,adult Z68.[address] [address] 18 Jul, 2015 Erythema nodosum L52 and Fat igue R53.[address] [address] 16 Jul, 2015 Erythema nodosum L52 [address] [address] 30 Jun, 2015 General counseling and advic e for contraceptive management Z30.09 and OCP (oral contraceptive pills) initiation Z30.[address] [address] 27 Jun, 2015 Bug bites W57.XXXA and Itchi ng L29.[address] [address] 19 Jun, 2015 Well woman exam Z01.419 ; We ight gain R63.5 and BMI 27.0-27.9,adult Z68.27 [place] [address] [address] 27 May, 2015 Ankle pain, left M25.572 [facility] [address] [place] [id number] [address] [place] [address] [id number] December, Dental examination V72.2 [facility] [address] [id number] [address] [place] [id number] December, Dental examination V72.2 [facility] [address] [id number] [address] [place] [address] Nov, [facility] [address] [id number] [address] [place] [address], [place] [address] Nov, [facility] [address] [id number] [address] [place] [address] Sep, [facility] [address] [id number] [address] [place] [address], [place] [address] Sep, [facility] [address] [id number] [address] [place] [address] Sep, [facility] [address] [id number] [address] [place] [address] Sep, [facility] [address] [id number] [address] [place] [address] Jun, [facility] [address] [id number] [address] [place] [address] Jun, [facility] [address] [id number] [address] [place] [address] May, [facility] [address] [id number] [address] [place] [address] May, [facility] [address] [id number] [address] [place] [address] Apr, [facility] [address] [id number] [address] [place] [address] Apr, [facility] [address] [id number] [address] [place] [address], [place] [address] Apr, [facility] [address] [id number] [address] [place] [address] Apr, [facility] [address] [id number] [address] [place] [address], [place] [address] Mar, [facility] [address] [id number] [address] [place] [address], [place] [address] Mar, [facility] [address] [id number] [address] [place] [address], [place] [address] December, [facility] [address] [id number] [address] [place] [address], [place] [address] December, [facility] [address] [id number] [address] [place] [address], [place] [address] Nov, [facility] [address] [id number] [address] [place] [address], [place] [address] Nov, [facility] [address] [id number] [address] [place] [address], [place] [address] Sep, [facility] [address] [id number] [address] [place] [address], [place] [address] Sep, [facility] [address] [id number] [address] [place] [address], [place] [address] Sep, [facility] [address] [id number] [address] [place] [address], [place] [address] Sep, [facility] [address] [id number] [address] [place] [address], [place] [address] Sep, [facility] [address] [id number] [address] [place] [address], [place] [address] Sep, [facility] [address] [id number] [address] [place] [address], [place] [address] Aug, [facility] [address] [id number] [address] [place] [address], [place] [address] Aug, [facility] [address] [id number] [address] [place] [address], [place] [address] Aug, [facility] [address] [id number] [address] [place] [address], [place] [address] Aug, [facility] [address] [id number] [address] [place] [address], [place] [address] Aug, [facility] [address] [id number] [address] [place] [address], [place] [address] Aug, [facility] [address] [id number] [address] [place] [address], [place] [address] Aug, [facility] [address] [id number] [address] [place] [address], [place] [address] Aug, [facility] [address] [id number] [address] [place] [address], [place] [address] Jun, [facility] [address] [id number] [address] [place] [address], [place] [address] Jun, [facility] [address] [id number] [address] [place] [address], [place] [address] Jan, [facility] [address] [id number] [address] [place] [address], [place] [address] Jan, [facility] [address] [id number] [address] [place] [address], [place] [address] Oct, [facility] [address] [id number] [address] [place] [address], [place] [address] Oct, [facility] [address] [id number] [address] [place] [address], [place] [address] Oct, [facility] [address] [id number] [address] [place] [address], [place] [address] Oct, [facility] [address] [id number] [address] [place] [address], [place] [address] Oct, [facility] [address] [id number] [address] [place] [address], [place] [address] Sep, [facility] [address] [id number] [address] [place] [address], [place] [address] Sep, [facility] [address] [id number] [address] [place] [address] Sep, [facility] [address] [id number] [address] [place] [address] May, [facility] [address] [facility] [id number] [address] [place] [address] May, [facility] [address] [facility] [id number] [address] [place] [address] May, [facility] [address] [facility] [id number] [address] [place] [address] Jan, [facility] [address] [facility] [id number] [address] [place] [address] Aug, IMMUNIZATIONS No Known Immunizations SOCIAL HISTORY Never Assessed REASON FOR VISIT PLAN OF CARE VITAL SIGNS Height 62 in 2012-02-20 Weight 136 lbs 2012-02-20 Temperature 98.4 degrees Fahrenheit 2012-02-20 Heart Rate 80 bpm 2012-02-20 Respiratory Rate 16 2012-02-20 Blood pressure systolic 110 mmHg 2012-02-20 Blood pressure diastolic 70 mmHg 2012-02-20 MEDICATIONS No Known Medications RESULTS No Results PROCEDURES No Known procedures INSTRUCTIONS MEDICATIONS ADMINISTERED No Known Medications MEDICAL (GENERAL) HISTORY Type Description Date Surgical History No know Surgical history Hospitalization History childbirth 2008 Hospitalization History childbirth 2018
--- OUTSIDE RECORDS SUMMARY | 2020-03-13 11:55 | XMS REPORT ---
Author Author Chiquita ELAM Organization [facility] Address [address] [place] [address] Care Team Providers Care Theater Projectionist Name Role Phone CONCHITA ELAM Unavailable PROBLEMS Type Condition ICD9-CM Code LSW73-WO Code Onset Dates Condition S tatus SNOMED Code Problem Encounter for insertion of intrauterine contraceptive device Z30.430 Active 94289827 Problem Microcytic anemia D50.9 Active 23 9204933 Problem Itching L29.9 Active 021997132 Problem Bug bites W57.XXXA Active [id number] ALLERGIES No Information ENCOUNTERS Encounter Location Date Diagnosis [facility] [address] [place] [id number] [address] [place] [address] Feb, Viral upper respiratory trac t infection J06.9 [facility] [address] [place] [id number] [address] [place] [address] May, [facility] [address] [place] [id number] [address] [place] [address] May, care in second trim elizabeth Z34.92 [facility] [address] [place] [id number] [address] [place] [address] May, Microcytic anemia D50.9 [facility] [address] [place] [address] May, Microcytic anemia D50.9 [facility] [address] [place] [id number] [address] [place] [address] Apr, Multigravida in first trimes ter Z34.81 and Normal in multigravida Z34.80 [facility] [address] [place] [id number] [address] [place] [address] Apr, [facility] [address] [id number] [address] [place] [address] 14 Apr, 2018 [facility] [address] [facility] [id number] [address] [place] [address] 11 Apr, 2018 [facility] [address] [facility] [id number] [address] [place] [address] 07 Apr, 2018 Encounter for test Z32.00 [facility] [address] [facility] [id number] [address] [place] [address] Feb, Irritant contact dermatitis due to other chemical products L24.5 [facility] [address] [id number] [address] [place] [address] Feb, Frequent headaches R51 [facility] [address] [facility] [id number] [address] [place] [address] Feb, Frequent headaches R51 [facility] [id number] [address] [place] [address] Aug, Other viral agents as the ca use of diseases classified elsewhere B97.89 and Acute upper respiratory infection, unspecified J06.9 [place] [address] [facility] [id number] [address] [place] [address] Feb, Pyelonephritis N12 [place] [address] [facility] [id number] [address] [place] [address] Nov, Leukorrhea N89.8 ; Acute vag initis N76.0 and Other specified bacterial agents as the cause of diseases classified elsewhere B96.89 [facility] [address] [id number] [address] [place] [address] Oct, Right ovarian cyst N83.20 [place] [address] [address] [facility] [id number] [address] [place] [address] Sep, [facility] [address] [facility] [id number] [address] [place] [address] Aug, [place] [address] [facility] [id number] [address] [place] [address] 13 Aug, 2015 Right ovarian cyst N83.20 [place] [address] [place] [address] 11 Aug, 2015 Encounter for insertion of i ntrauterine contraceptive device Z30.430 [place] [address] [place] [address] 07 Aug, 2015 Encounter for counseling reg arding contraception Z30.9 [place] [address] [address] 04 Aug, 2015 [place] [address] [address] 18 Jul, 2015 Well woman exam Z01.419 ; We ight gain R63.5 and BMI 27.0-27.9,adult Z68.27 [place] [address] [address] 18 Jul, 2015 Erythema nodosum L52 and Fat igue R53.83 [place] [address] [address] 16 Jul, 2015 Erythema nodosum L52 [place] [address] [address] 30 Jun, 2015 General counseling and advic e for contraceptive management Z30.09 and OCP (oral contraceptive pills) initiation Z30.011 [place] [address] [address] 27 Jun, 2015 Bug bites W57.XXXA and Itchi ng L29.9 [place] [address] [place] [address] 19 Jun, 2015 Well woman exam Z01.419 ; We ight gain R63.5 and BMI 27.0-27.9,adult Z68.27 [place] [address] [place] [address] 27 May, 2015 Ankle pain, left M25.572 [facility] [address] [id number] [place] [id number] December, Dental examination V72.2 [facility] [address] [id number] [address] [place] [id number] December, Dental examination V72.2 [facility] [address] [id number] [address] [place] [address] Nov, [facility] [address] [id number] [address] [place] [address] Nov, [facility] [address] [id number] [address] [place] [address] Sep, [facility] [address] [id number] [address] [place] [address] Sep, [facility] [address] [id number] [address] [place] [address] Sep, [facility] [address] [id number] [address] [place] [address] Sep, [facility] [address] [id number] [address] [place] [address] Jun, [facility] [address] [id number] [address] [place] [address] Jun, [facility] [address] [id number] [address] [place] [address] May, [facility] [address] [id number] [address] [place] [address] May, [facility] [address] [id number] [address] [place] [address] Apr, [facility] [address] [id number] [address] [place] [address] Apr, [facility] [address] [id number] [address] [place] [address] Apr, [facility] [address] [id number] [address] [place] [address], [place] [address] Apr, [facility] [address] [id number] [address] [place] [address], [place] [address] Mar, [facility] [address] [id number] [address] [place] [address], [place] [address] Mar, [facility] [address] [id number] [address] [place] [address], [place] [address] December, [facility] [address] [id number] [address] [place] [address], [place] [address] December, [facility] [address] [id number] [address] [place] [address], [place] [address] Nov, [facility] [address] [id number] [address] [place] [address], [place] [address] Nov, [facility] [address] [id number] [address] [place] [address], [place] [address] Sep, [facility] [address] [id number] [address] [place] [address], [place] [address] Sep, [facility] [address] [id number] [address] [place] [address], [place] [address] Sep, [facility] [address] [id number] [address] [place] [address], [place] [address] Sep, [facility] [address] [id number] [address] [place] [address], [place] [address] Sep, [facility] [address] [id number] [address] [place] [address], [place] [address] Sep, [facility] [address] [id number] [address] [place] [address], [place] [address] Aug, [facility] [address] [id number] [address] [place] [address], [place] [address] Aug, [facility] [address] [id number] [address] [place] [address], [place] [address] Aug, [facility] [address] [id number] [address] [place] [address], [place] [address] Aug, [facility] [address] [id number] [address] [place] [address], [place] [id number] Aug, [facility] [address] [id number] [address] [place] [address], [place] [id number] Aug, [facility] [address] [id number] [address] [place] [address], [place] [id number] Aug, [facility] [address] [id number] [address] [place] [address], [place] [address] Aug, [facility] [address] [id number] [address] [place] [address], [place] [id number] Jun, [facility] [address] [id number] [address] [place] [address], [place] [id number] Jun, [facility] [address] [id number] [address] [place] [address], [place] [id number] Jan, [facility] [address] [id number] [address] [place] [address], [place] [address] Jan, [facility] [address] [id number] [address] [place] [address], [place] [id number] Oct, [facility] [address] [id number] [address] [place] [address], [place] [id number] Oct, [facility] [address] [id number] [address] [place] [address], [place] [address] Oct, [facility] [address] [id number] [address] [place] [address], [place] [id number] Oct, [facility] [address] [id number] [address] [place] [address], [place] [id number] Oct, [facility] [address] [id number] [address] [place] [address], [place] [id number] Sep, [facility] [address] [id number] [address] [place] [id number] Sep, [facility] [address] [facility] [id number] [address] [place] [id number] Sep, [facility] [address] [facility] [id number] [address] [place] [phone] May, [facility] [address] [facility] [id number] [address] [place] [phone] May, [facility] [address] [facility] [id number] [address] [place] [phone] May, [facility] [address] [facility] [id number] [address] [place] [phone] Jan, [facility] [address] [facility] [id number] [address] [place] [phone] Aug, IMMUNIZATIONS No Known Immunizations SOCIAL HISTORY Never Assessed REASON FOR VISIT PLAN OF CARE VITAL SIGNS MEDICATIONS No Known Medications RESULTS No Results PROCEDURES No Known procedures INSTRUCTIONS MEDICATIONS ADMINISTERED No Known Medications MEDICAL (GENERAL) HISTORY Type Description Date Surgical History No know Surgical history Hospitalization History childbirth 2008 Hospitalization History childbirth 2019
--- OUTSIDE RECORDS SUMMARY | 2020-03-13 11:56 | XMS REPORT ---
Author Author Chiquita Hernandez Doctor Organization [facility] Address Unknown Phone Unavailable Care Team Providers Care Devops Consultant Name Role Phone Migration, Doctor Unavailable Unavailable PROBLEMS Type Condition ICD9-CM Code [id number] Code Onset Dates Condition S tatus SNOMED Code Problem Encounter for insertion of intrauterine contraceptive device Z30.430 Active 45069658 Problem Microcytic anemia D50.9 Active 23 3410863 Problem Itching L29.9 Active 818979920 Problem Bug bites W57.XXXA Active 240280327 ALLERGIES No Information ENCOUNTERS Encounter Location Date Diagnosis [facility] [address] [facility] [id number] [address] [place] [address] May, [facility] [address] [facility] [id number] [address] [place] [address] May, care in second trim elizabeth Z34.92 [facility] [address] [facility] [id number] [address] [place] [address] May, Microcytic anemia D50.9 [facility] [address] [facility] [id number] [address] [place] [address] May, Microcytic anemia D50.9 [facility] [address] [facility] [id number] [address] [place] [address] Apr, Multigravida in first trimes ter Z34.81 and Normal in multigravida Z34.80 [facility] [address] [facility] [id number] [address] [place] [address] Apr, [facility] [address] [facility] [id number] [address] [place] [address] 14 Apr, 2018 [facility] [address] [facility] [id number] [address] [place] [address] 11 Apr, 2018 [facility] [address] [facility] [id number] [address] [place] [address] 07 Apr, 2018 Encounter for test Z32.00 [facility] [address] [facility] [id number] [address] [place] [address] Feb, Irritant contact dermatitis due to other chemical products L24.5 [place] [address] [facility] [id number] [address] [place] [address] Feb, Frequent headaches R51 [facility] [address] [facility] [id number] [address] [place] [address] Feb, Frequent headaches R51 [facility] [address] [facility] [id number] [address] [place] [address] Aug, Other viral agents as the ca use of diseases classified elsewhere B97.89 and Acute upper respiratory infection, unspecified J06.9 [place] [address] [place] [id number] [address] [place] [address] Feb, Pyelonephritis N12 [place] [address] [facility] [id number] [address] [place] [address] Nov, Leukorrhea N89.8 ; Acute vag initis N76.0 and Other specified bacterial agents as the cause of diseases classified elsewhere B96.89 [place] [address] [facility] [id number] [address] [place] [address] Oct, Right ovarian cyst N83.20 [place] [address] [place] [id number] [address] [place] [address] Sep, [place] [address] [facility] [id number] [address] [place] [address] Aug, [place] [address] [place] [id number] [address] [place] [address] Aug, Right ovarian cyst N83.20 [place] [address] [place] [id number] [address] [place] [address] Aug, Encounter for insertion of i ntrauterine contraceptive device Z30.430 [place] [address] [place] [address] 07 Aug, 2015 Encounter for counseling reg arding contraception Z30.9 [place] [address] [address] 04 Aug, 2015 [place] [address] [address] 18 Jul, 2015 Well woman exam Z01.419 ; We ight gain R63.5 and BMI 27.0-27.9,adult Z68.27 [place] [address] [address] 18 Jul, 2015 Erythema nodosum L52 and Fat igue R53.83 [place] [address] [address] 16 Jul, 2015 Erythema nodosum L52 [place] [address] [address] 30 Jun, 2015 General counseling and advic e for contraceptive management Z30.09 and OCP (oral contraceptive pills) initiation Z30.[address] [address] 27 Jun, 2015 Bug bites W57.XXXA and Itchi ng L29.9 [place] [id number] [place] [address] 19 Jun, 2015 Well woman exam Z01.419 ; We ight gain R63.5 and BMI 27.0-27.9,adult Z68.27 [place] [address] [place] [address] May, Ankle pain, left M25.572 [facility] [address] [place] [id number] December, Dental examination V72.2 [facility] [address] [place] [id number] [address] [place] [id number] December, Dental examination V72.2 [facility] [address] [id number] [address] [place] [address], [place] [address] 14 Nov, 2014 [facility] [address] [id number] [address] [place] [address], [place] [address] Nov, [facility] [address] [id number] [address] [place] [address], [place] [address] Sep, 2014 [facility] [address] [id number] [address] [place] [address], [place] [address] Sep, 2014 [facility] [address] [id number] [address] [place] [address], [place] [address] Sep, 2014 [facility] [address] [id number] [address] [place] [address], [place] [address] Sep, 2014 [facility] [address] [id number] [address] [place] [address], [place] [address] Jun, [facility] [address] [id number] [address] [place] [address] Jun, [facility] [address] [id number] [address] [place] [address], [place] [address] May, [facility] [address] [id number] [address] [place] [address] May, [facility] [address] [id number] [address] [place] [address] Apr, [facility] [address] [id number] [address] [place] [address] 29 Apr, 2014 [facility] [address] [id number] [address] [place] [address], [place] [address] Apr, [facility] [address] [id number] [address] [place] [address], [place] [address] Apr, [facility] [address] [id number] [address] [place] [address], [place] [address] Mar, [facility] [address] [id number] [address] [place] [address] Mar, [facility] [address] [id number] [address] [place] [address], [place] [address] December, [facility] [address] [id number] [address] [place] [address], [place] [address] December, [facility] [address] [id number] [address] [place] [address], [place] [address] Nov, [facility] [address] [id number] [address] [place] [address], [place] [address] Nov, [facility] [address] [id number] [address] [place] [address], [place] [address] Sep, [facility] [address] [id number] [address] [place] [address], [place] [address] Sep, [facility] [address] [id number] [address] [place] [address], [place] [address] Sep, [facility] [address] [id number] [address] [place] [address], [place] [address] Sep, [facility] [address] [id number] [address] [place] [address], [place] [address] Sep, [facility] [address] [id number] [address] [place] [address], [place] [address] Sep, [facility] [address] [id number] [address] [place] [address], [place] [address] Aug, [facility] [address] [id number] [address] [place] [address], [place] [address] Aug, [facility] [address] [id number] [address] [place] [address], [place] [address] Aug, [facility] [address] [id number] [address] [place] [address], [place] [address] Aug, [facility] [address] [id number] [address] [place] [address], [place] [address] Aug, [facility] [address] [id number] [address] [place] [address], [place] [address] Aug, [facility] [address] [id number] [address] [place] [address], [place] [address] Aug, [facility] [address] [id number] [address] [place] [address], [place] [address] Aug, [facility] [address] [id number] [address] [place] [address], [place] [address] Jun, [facility] [address] [id number] [address] [place] [address], [place] [address] Jun, [facility] [address] [id number] [address] [place] [address], [place] [address] Jan, [facility] [address] [id number] [address] [place] [address], [place] [address] Jan, [facility] [address] [id number] [address] [place] [address], [place] [address] Oct, [facility] [address] [id number] [address] [place] [address], [place] [address] Oct, [facility] [address] [id number] [address] [place] [address], [place] [address] Oct, [facility] [address] [id number] [address] [place] [address], [place] [address] Oct, [facility] [address] [id number] [address] [place] [address], [place] [address] Oct, [facility] [address] [id number] [address] [place] [address], [place] [address] Sep, [facility] [address] [id number] [address] [place] [address], [place] [address] Sep, [facility] [address] [id number] [address] [place] [address], [place] [address] Sep, [facility] [address] [id number] [address] [place] [address] May, [facility] [address] [facility] [id number] [address] [place] [address] May, [facility] [address] [facility] [id number] [address] [place] [address] May, [facility] [address] [facility] [id number] [address] [place] [address] Jan, [facility] [address] [facility] [id number] [address] [place] [address] Aug, IMMUNIZATIONS No Known Immunizations SOCIAL HISTORY Never Assessed REASON FOR VISIT [place] [place] VITAL SIGNS MEDICATIONS Medication Instructions Dosage Frequency Start Date End Date Duration S tatus Flagyl 500 mg 1 tablet by Oral rou te 2 times per day for 7 days Take with food, avoid alcohol Aug, Active PredniSONE 20 mg 2 tablet by Oral route 1 time per day for 5 day(s) Nov, Active Bactrim DS 800-160 mg 1 tablet by Oral route 2 times p er day for 7 day(s) Oct, Active RESULTS No Results PROCEDURES No Known procedures INSTRUCTIONS MEDICATIONS ADMINISTERED No Known Medications MEDICAL (GENERAL) HISTORY Type Description Date Surgical History No know Surgical history Hospitalization History childbirth 2008
--- OUTSIDE RECORDS SUMMARY | 2020-03-13 11:56 | XMS REPORT ---
Author Author Chiquita Hernandez Doctor Organization [facility] Address Unknown Phone Unavailable Care Team Providers Care Bottle Gauger Name Role Phone Migration, Doctor Unavailable Unavailable PROBLEMS Type Condition ICD9-CM Code IGI67-AR Code Onset Dates Condition S tatus SNOMED Code Problem Encounter for insertion of intrauterine contraceptive device Z30.430 Active 81624299 Problem Microcytic anemia D50.9 Active 23 7669886 Problem Itching L29.9 Active 227239552 Problem Bug bites W57.XXXA Active 942374368 ALLERGIES No Information ENCOUNTERS Encounter Location Date Diagnosis [facility] [address] [facility] [id number] [address] [place] [address] May, [facility] [address] [facility] [id number] [address] [place] [address] May, care in second trim elizabeth Z34.92 [facility] [address] [facility] [id number] [address] [place] [address] May, Microcytic anemia D50.9 [facility] [address] [facility] [id number] [address] [place] [address] May, Microcytic anemia D50.9 [facility] [address] [facility] [id number] [address] [place] [address] Apr, Multigravida in first trimes ter Z34.81 and Normal in multigravida Z34.80 [facility] [address] [facility] [id number] [address] [place] [address] Apr, [facility] [address] [facility] [id number] [address] [place] [address] 14 Apr, 2018 [facility] [address] [facility] [id number] [address] [place] [address] 11 Apr, 2018 [facility] [address] [facility] [id number] [address] [place] [address] 07 Apr, 2018 Encounter for test Z32.00 [facility] [address] [facility] [id number] [address] [place] [address] Feb, Irritant contact dermatitis due to other chemical products L24.5 [place] [address] [facility] [id number] [address] [place] [address] Feb, Frequent headaches R51 [facility] [address] [facility] [id number] [address] [place] [address] Feb, Frequent headaches R51 [facility] N [facility] [id number] [address] [place] [address] Aug, Other viral agents as the ca use of diseases classified elsewhere B97.89 and Acute upper respiratory infection, unspecified J06.9 [place] [address] [place] [id number] [address] [place] [address] Feb, Pyelonephritis N12 [place] [address] [address] [facility] [id number] [address] [place] [address] Nov, Leukorrhea N89.8 ; Acute vag initis N76.0 and Other specified bacterial agents as the cause of diseases classified elsewhere B96.89 [place] [address] [address] [facility] [id number] [address] [place] [address] Oct, Right ovarian cyst N83.20 [place] [address] [place] [id number] [address] [place] [address] Sep, [place] [address] [facility] [id number] [address] [place] [address] Aug, [place] [address] [place] [id number] [address] [place] [address] Aug, Right ovarian cyst N83.20 [place] [address] [place] [id number] [address] [place] [address] Aug, Encounter for insertion of i ntrauterine contraceptive device Z30.430 [place] [address] [place] [address] 07 Aug, 2015 Encounter for counseling reg arding contraception Z30.9 [place] [address] [address] 04 Aug, 2015 [place] [address] [address] 18 Jul, 2015 Well woman exam Z01.419 ; We ight gain R63.5 and BMI 27.0-27.9,adult Z68.27 [place] [address] [address] 18 Jul, 2015 Erythema nodosum L52 and Fat igue R53.83 [place] [address] [address] 16 Jul, 2015 Erythema nodosum L52 [place] [address] [address] 30 Jun, 2015 General counseling and advic e for contraceptive management Z30.09 and OCP (oral contraceptive pills) initiation Z30.[address] [address] 27 Jun, 2015 Bug bites W57.XXXA and Itchi ng L29.9 [place] [id number] [place] [address] 19 Jun, 2015 Well woman exam Z01.419 ; We ight gain R63.5 and BMI 27.0-27.9,adult Z68.27 [place] [address] [place] [address] May, Ankle pain, left M25.572 [facility] [address] [place] [id number] December, Dental examination V72.2 [facility] [address] [place] [id number] [address] [place] [address] [id number] December, Dental examination V72.2 [facility] [address] [id number] [address] [place] [address], [place] [address] 14 Nov, 2014 [facility] [address] [id number] [address] [place] [address], [place] [address] Nov, [facility] [address] [id number] [address] [place] [address], [place] [address] Sep, 2014 [facility] [address] [id number] [address] [place] [address], [place] [address] Sep, 2014 [facility] [address] [id number] [address] [place] [address], [place] [address] Sep, 2014 [facility] [address] [id number] [address] [place] [address], [place] [address] Sep, 2014 [facility] [address] [id number] [address] [place] [address], [place] [address] Jun, [facility] [address] [id number] [address] [place] [phone] Jun, [facility] [address] [id number] [address] [place] [address], [place] [address] May, [facility] [address] [id number] [address] [place] [address] May, [facility] [address] [id number] [address] [place] [address] Apr, [facility] [address] [id number] [address] [place] [address] 29 Apr, 2014 [facility] [address] [id number] [address] [place] [address], [place] [address] Apr, [facility] [address] [id number] [address] [place] [address], [place] [address] Apr, [facility] [address] [id number] [address] [place] [address], [place] [address] Mar, [facility] [address] [id number] [address] [place] [address] Mar, [facility] [address] [id number] [address] [place] [address], [place] [address] December, [facility] [address] [id number] [address] [place] [address], [place] [address] December, [facility] [address] [id number] [address] [place] [address], [place] [address] Nov, [facility] [address] [id number] [address] [place] [address], [place] [address] Nov, [facility] [address] [id number] [address] [place] [address], [place] [address] Sep, [facility] [address] [id number] [address] [place] [address], [place] [address] Sep, [facility] [address] [id number] [address] [place] [address], [place] [address] Sep, [facility] [address] [id number] [address] [place] [address], [place] [address] Sep, [facility] [address] [id number] [address] [place] [address], [place] [address] Sep, [facility] [address] [id number] [address] [place] [address], [place] [address] Sep, [facility] [address] [id number] [address] [place] [address], [place] [address] Aug, [facility] [address] [id number] [address] [place] [address], [place] [address] Aug, [facility] [address] [id number] [address] [place] [address], [place] [address] Aug, [facility] [address] [id number] [address] [place] [address], [place] [address] Aug, [facility] [address] [id number] [address] [place] [address], [place] [address] Aug, [facility] [address] [id number] [address] [place] [address], [place] [address] Aug, [facility] [address] [id number] [address] [place] [address], [place] [address] Aug, [facility] [address] [id number] [address] [place] [address], [place] [address] Aug, [facility] [address] [id number] [address] [place] [address], [place] [address] Jun, [facility] [address] [id number] [address] [place] [address], [place] [address] Jun, [facility] [address] [id number] [address] [place] [address], [place] [address] Jan, [facility] [address] [id number] [address] [place] [address], [place] [address] Jan, [facility] [address] [id number] [address] [place] [address], [place] [address] Oct, [facility] [address] [id number] [address] [place] [address], [place] [address] Oct, [facility] [address] [id number] [address] [place] [address], [place] [address] Oct, [facility] [address] [id number] [address] [place] [address], [place] [address] Oct, [facility] [address] [id number] [address] [place] [address], [place] [address] Oct, [facility] [address] [id number] [address] [place] [address], [place] [address] Sep, [facility] [address] [id number] [address] [place] [address], [place] [address] Sep, [facility] [address] [id number] [address] [place] [address], [place] [address] Sep, [facility] [address] [id number] [address] [place] [id number] May, [facility] [address] [facility] [id number] [address] [place] [id number] May, [facility] [address] [facility] [id number] [address] [place] [id number] May, [facility] [address] [facility] [id number] [address] [place] [id number] Jan, [facility] [address] [facility] [id number] [address] [place] [phone] Aug, IMMUNIZATIONS No Known Immunizations SOCIAL HISTORY Never Assessed REASON FOR VISIT EMR-[facility] PLAN OF CARE VITAL SIGNS MEDICATIONS Unknown Medications RESULTS No Results PROCEDURES No Known procedures INSTRUCTIONS MEDICATIONS ADMINISTERED No Known Medications MEDICAL (GENERAL) HISTORY Type Description Date Surgical History No know Surgical history Hospitalization History childbirth 2008
--- OUTSIDE RECORDS SUMMARY | 2020-03-13 11:56 | XMS REPORT ---
Author Author Chiquita Hernandez Doctor Organization [facility] Address Unknown Phone Unavailable Care Team Providers Care Farm Instructor Name Role Phone Migration, Doctor Unavailable Unavailable PROBLEMS Type Condition ICD9-CM Code [id number] Code Onset Dates Condition S tatus SNOMED Code Problem Encounter for insertion of intrauterine contraceptive device Z30.430 Active 34145038 Problem Microcytic anemia D50.9 Active 23 7437723 Problem Itching L29.9 Active 244288316 Problem Bug bites W57.XXXA Active [id number] ALLERGIES No Information ENCOUNTERS Encounter Location Date Diagnosis [facility] [address] [id number] [address] [place] [address] Feb, Viral upper respiratory trac t infection J06.9 [facility] WALK IN [facility] [address] [place] [id number] [address] [place] [address] May, [place] [address] [address] May, care in second trimester Z34.92 [place] [address] [address] May, Microcytic anemia D50.9 [place] [address] [address] May, Microcytic anemia D50.9 [place] [address] [address] 26 Apr, 2018 Multigravida in first trimester Z34.81 a nd Normal in multigravida Z34.80 [place] [address] [address] 20 Apr, 2018 [place] [address] [address] 14 Apr, 2018 [place] [address] [place] [address] Apr, [place] [address] [address] Apr, Encounter for test Z32.00 [facility] [address] [facility] [id number] [address] [place] [address] Feb, Irritant contact dermatitis due to other chemical products L24.5 [place] [address] [address] Feb, Frequent headaches R51 [facility] [address] [facility] [id number] [address] [place] [address] Feb, Frequent headaches R51 [facility] [address] [place] [id number] [address] [place] [address] Aug, Other viral agents as the ca use of diseases classified elsewhere B97.89 and Acute upper respiratory infection, unspecified J06.9 [place] [address] [address] Feb, Pyelonephritis N12 [place] [address] [address] Nov, Leukorrhea N89.8 ; Acute vaginitis N76.0 and Other specified bacterial agents as the cause of diseases classified elsewhere B96.89 [place] [address] [address] Oct, Right ovarian cyst N83.20 [place] [address] [address] Sep, [place] [address] [address] Aug, [place] [address] [address] Aug, Right ovarian cyst N83.20 [place] [address] [address] Aug, Encounter for insertion of intrauterine contraceptive device Z30.430 [place] [address] [address] 07 Aug, 2015 Encounter for counseling regarding contr aception Z30.9 [place] [address] [address] 04 Aug, 2015 [place] [address] [address] Jul, Well woman exam Z01.419 ; Weight gain R6 3.5 and BMI 27.0-27.9,adult Z68.27 [place] [address] [address] 18 Jul, 2015 Erythema nodosum L52 and Fatigue R53.[address] [address] 16 Jul, 2015 Erythema nodosum L52 [address] [address] 30 Jun, 2015 General counseling and advice for contra ceptive management Z30.09 and OCP (oral contraceptive pills) initiation Z30.[address] [address] 27 Jun, 2015 Bug bites W57.XXXA and Itching L29.[address] [address] Jun, Well woman exam Z01.419 ; Weight gain R6 3.5 and BMI 27.0-27.9,adult Z68.[address] [address] May, Ankle pain, left M25.572 [facility] [address] [id number] December, Dental examination V72.2 [facility] [address] [id number] December, Dental examination V72.[address] [address] 14 Nov, 2014 [facility] [address] [id number] [place] [address] Nov, [facility] [address] [id number] [place] [address] Sep, [facility] [address] [id number] [place] [address] Sep, 2014 [facility] [address] [id number] [place] [address] Sep, [facility] [address] [id number] [place] [address] Sep, [facility] [address] [id number] [place] [address] Jun, [facility] [address] [id number] [place] [address] Jun, [facility] [address] [id number] [place] [address] May, [facility] [address] [id number] [place] [address] May, [facility] [address] [id number] [place] [address] Apr, [facility] [address] [id number] [place] [address] Apr, [facility] [address] [id number] [place] [address] Apr, [facility] [address] [id number] [place] [address] Apr, [facility] [address] [id number] [place] [address] Mar, [facility] [address] [id number] [place] [address] Mar, [facility] [address] [id number] [place] [address] December, [facility] [address] [id number] [place] [address] December, [facility] [address] [id number] [place] [address] Nov, [facility] [address] [id number] [place] [address] Nov, [facility] [address] [id number] [place] [address] Sep, [facility] [address] [id number] [place] [address] Sep, [facility] [address] [id number] [place] [address] Sep, [facility] [address] [id number] [place] [address] Sep, [facility] [address] [id number] [place] [address] Sep, [facility] [address] [id number] [place] [address] Sep, [facility] [address] [id number] [place] [address] Aug, [facility] [address] [id number] [place] [address] Aug, [facility] [address] [id number] [place] [address] Aug, [facility] [address] [id number] [place] [address] Aug, [facility] [address] [id number] [place] [address] Aug, [facility] [address] [id number] [place] [address] Aug, [facility] [address] [id number] [place] [address] Aug, [facility] [address] [id number] [place] [address] Aug, [facility] [address] [facility] [id number] [place] [address] Jun, [facility] [address] [facility] [id number] [place] [address] Jun, [facility] [address] [id number] [place] [address] Jan, [facility] [address] [id number] [place] [address] Jan, [facility] [address] [facility] [id number] [place] [address] Oct, [facility] [address] [id number] [place] [address] Oct, [facility] [address] [id number] [place] [address] Oct, [facility] [address] [id number] [place] [address] Oct, [facility] [address] [id number] [place] [address] Oct, [facility] [address] [id number] [place] [address] Sep, [facility] [address] [id number] [place] [address] Sep, [facility] [address] [id number] [place] [address] Sep, [facility] [address] [id number] [place] [address] May, [facility] [address] [id number] [place] [address] May, [facility] [address] [id number] [place] [address] May, [facility] [address] [id number] [place] [address] Jan, [facility] [address] [id number] [place] [address] Aug, IMMUNIZATIONS No Known Immunizations SOCIAL HISTORY Never Assessed REASON FOR VISIT PLAN OF CARE VITAL SIGNS MEDICATIONS No Known Medications RESULTS No Results PROCEDURES Procedure Date Ordered Result Body Site THER/PROPH/DIAG INJ, SC/IM Oct 17, 2013 Medroxyprogesterone inj Oct 17, 2013 URINE TEST Oct 17, 2013 INSTRUCTIONS MEDICATIONS ADMINISTERED No Known Medications MEDICAL (GENERAL) HISTORY Type Description Date Surgical History No know Surgical history Hospitalization History childbirth 2008 Hospitalization History childbirth 2019
--- OUTSIDE RECORDS SUMMARY | 2020-03-13 11:56 | XMS REPORT ---
Author Author Chiquita ELAM Organization [facility] Address [address] [place] [address] Care Team Providers Care Steel Roller Name Role Phone CONCHITA ELAM Unavailable PROBLEMS Type Condition ICD9-CM Code [id number] Code Onset Dates Condition S tatus SNOMED Code Problem Encounter for insertion of intrauterine contraceptive device Z30.430 Active 91330371 Problem Microcytic anemia D50.9 Active 23 5249701 Problem Itching L29.9 Active 194331336 Problem Bug bites W57.XXXA Active 566311043 ALLERGIES No Information ENCOUNTERS Encounter Location Date Diagnosis [facility] [address] [id number] [address] [place] [address] Feb, Viral upper respiratory trac t infection J06.[address] [facility] WALK IN [facility] [address] [id number] [address] [place] [address] May, [address] [address] May, care in second trimester Z34.92 [place] [address] [address] May, Microcytic anemia D50.9 [facility] [address] [address] May, Microcytic anemia D50.9 [facility] [address] [address] Apr, Multigravida in first trimester Z34.81 a nd Normal in multigravida Z34.80 [place] [address] [place] [id number] [place] [address] Apr, [place] [address] [address] 14 Apr, 2018 [facility] [address] [id number] [place] [address] Apr, [place] [address] [id number] [place] [address] 07 Apr, 2018 Encounter for test Z32.00 [facility] [address] [facility] [id number] [place] [address] Feb, Irritant contact dermatitis due to other chemical products L24.5 [facility] [address] [id number] [place] [address] Feb, Frequent headaches R51 [facility] [address] [facility] [id number] [address] [place] [address] Feb, Frequent headaches R[address] [facility]ALK [facility] [place] [address] [facility] [id number] [address] [place] [address] Aug, Other viral agents as the ca use of diseases classified elsewhere B97.89 and Acute upper respiratory infection, unspecified J06.9 [place] [address] [place] [id number] [place] [address] Feb, Pyelonephritis N12 [place] [address] [place] [id number] [place] [address] Nov, Leukorrhea N89.8 ; Acute vaginitis N76.0 and Other specified bacterial agents as the cause of diseases classified elsewhere B96.89 [place] [address] [place] [id number] [place] [address] Oct, Right ovarian cyst N83.20 [place] [address] [place] [id number] [place] [address] Sep, [place] [address] [address] Aug, [place] [address] [place] [id number] [place] [address] Aug, Right ovarian cyst N83.20 [place] [address] [address] 11 Aug, 2015 Encounter for insertion of intrauterine contraceptive device Z30.430 [place] [address] [address] 07 Aug, 2015 Encounter for counseling regarding contr aception Z30.9 [place] [address] [address] 04 Aug, [address] [address] Jul, Well woman exam Z01.419 ; Weight gain R6 3.5 and BMI 27.0-27.9,adult Z68.[address] [address] 18 Jul, 2015 Erythema nodosum L52 and Fatigue R53.[address] [address] Jul, Erythema nodosum L52 [address] [address] 30 Jun, 2015 General counseling and advice for contra ceptive management Z30.09 and OCP (oral contraceptive pills) initiation Z30.[address] [address] 27 Jun, 2015 Bug bites W57.XXXA and Itching L29.[address] [address] Jun, Well woman exam Z01.419 ; Weight gain R6 3.5 and BMI 27.0-27.9,adult Z68.[address] [address] May, Ankle pain, left M25.572 [facility] [address] [id number] December, Dental examination V72.2 [facility] [address] [id number] May, 2015 Dental examination V72.2 [facility] [address] [id number] [place] [address] 14 Nov, 2014 [facility] [address] [id number] [place] [address] Nov, [facility] [address] [id number] [place] [address] Sep, 2014 [facility] [address] [id number] [place] [address] Sep, 2014 [facility] [address] [id number] [place] [address] Sep, 2014 [facility] [address] [id number] [place] [address] Sep, [facility] [address] [id number] [place] [address] Jun, [facility] [address] [id number] [place] [address] Jun, [facility] [address] [id number] [place] [address] May, [facility] [address] [id number] [place] [address] May, [facility] [address] [id number] [place] [address] Apr, [facility] [address] [place] [id number] [place] [address] Apr, [facility] [address] [id number] [place] [address] Apr, [facility] [address] [id number] [place] [address] Apr, [facility] [address] [id number] [place] [address] Mar, [facility] [address] [id number] [place] [address] Mar, [facility] [address] [id number] [place] [address] December, [facility] [address] [id number] [place] [address] December, [facility] [address] [facility] [id number] [place] [address] Nov, [facility] [address] [id number] [place] [address] Nov, [facility] [address] [id number] [place] [address] Sep, [facility] [address] [facility] [id number] [place] [address] Sep, [facility] [address] [id number] [place] [address] Sep, [facility] [address] [id number] [place] [address] Sep, [facility] [address] [id number] [place] [address] Sep, [facility] [address] [id number] [place] [address] Sep, [facility] [address] [id number] [place] [address] Aug, [facility] [address] [id number] [place] [address] Aug, [facility] [address] [id number] [place] [address] Aug, [facility] [address] [facility] [id number] [place] [address] Aug, [facility] [address] [id number] [place] [address] Aug, [facility] [address] [id number] [place] [address] Aug, [facility] [address] [id number] [place] [address] Aug, [facility] [address] [id number] [place] [address] Aug, [facility] [address] [id number] [place] [address] Jun, [facility] [address] [id number] [place] [address] Jun, [facility] [address] [id number] [place] [address] Jan, [facility] [address] [id number] [place] [address] Jan, [facility] [address] [id number] [place] [address] Oct, [facility] [address] [id number] [place] [address] Oct, [facility] [address] [place] [address] [id number] [place] [address] Oct, [facility] [address] [id number] [place] [address] Oct, [facility] [address] [id number] [place] [address] Oct, [facility] [address] [id number] [place] [address] Sep, [facility] [address] [id number] [place] [address] Sep, [facility] [address] [id number] [place] [address] Sep, [facility] [address] [id number] [place] [address] May, [facility] [address] [id number] [place] [address] May, [facility] [address] [id number] [place] [address] May, [facility] [address] [id number] [place] [address] Jan, [facility] [address] [facility] [id number] [place] [address] Aug, IMMUNIZATIONS No Known Immunizations SOCIAL HISTORY Never Assessed REASON FOR VISIT PLAN OF CARE VITAL SIGNS Height 62 in 2013-12-04 Weight 148 lbs 2013-12-04 Temperature 97.9 degrees Fahrenheit 2013-12-04 Heart Rate 78 bpm 2013-12-04 Respiratory Rate 20 2013-12-04 Blood pressure systolic 122 mmHg 2013-12-04 Blood pressure diastolic 70 mmHg 2013-12-04 MEDICATIONS No Known Medications RESULTS No Results PROCEDURES No Known procedures INSTRUCTIONS MEDICATIONS ADMINISTERED No Known Medications MEDICAL (GENERAL) HISTORY Type Description Date Surgical History No know Surgical history Hospitalization History childbirth 2008 Hospitalization History childbirth 2018
--- OUTSIDE RECORDS SUMMARY | 2020-03-13 11:56 | XMS REPORT ---
Author Author Chiquita ELAM Organization [facility] Address [address] [place] [address] Care Team Providers Care Head Waiter Name Role Phone CONCHITA ELAM Unavailable PROBLEMS Type Condition ICD9-CM Code [id number] Code Onset Dates Condition S tatus SNOMED Code Problem Encounter for insertion of intrauterine contraceptive device Z30.430 Active 42481892 Problem Microcytic anemia D50.9 Active 23 6060918 Problem Itching L29.9 Active 768524283 Problem Bug bites W57.XXXA Active 630895087 ALLERGIES No Information ENCOUNTERS Encounter Location Date Diagnosis [facility] [address] [id number] [address] [place] [address] Feb, Viral upper respiratory trac t infection J06.9 [facility] WALK IN [facility] [address] [id number] [address] [place] [address] May, [facility] [address] [id number] [address] [place] [address] May, care in second trim elizabeth Z34.92 [facility] [address] [id number] [address] [place] [address] May, Microcytic anemia D50.9 [facility] [address] [id number] [address] [place] [address] May, Microcytic anemia D50.9 [facility] [address] [id number] [address] [place] [address] Apr, Multigravida in first trimes ter Z34.81 and Normal in multigravida Z34.80 [facility] [address] [id number] [address] [place] [address] Apr, [facility] [address] [id number] [address] [place] [address] 14 Apr, 2018 [facility] [address] [facility] [id number] [address] [place] [address] 11 Apr, 2018 [facility] [address] [facility] [id number] [address] [place] [address] 07 Apr, 2018 Encounter for test Z32.00 [facility] [address] [facility] [id number] [address] [place] [address] Feb, Irritant contact dermatitis due to other chemical products L24.5 [facility] [address] [id number] [address] [place] [address] Feb, Frequent headaches R51 [facility] [address] [facility] [id number] [address] [place] [address] Feb, Frequent headaches R51 [facility] WALK IN CARE [facility] N [facility] [id number] [address] [place] [address] Aug, Other viral agents as the ca use of diseases classified elsewhere B97.89 and Acute upper respiratory infection, unspecified J06.9 [place] [address] [facility] [id number] [address] [place] [address] Feb, Pyelonephritis N12 [place] [address] [address] [facility] [id number] [address] [place] [address] Nov, Leukorrhea N89.8 ; Acute vag initis N76.0 and Other specified bacterial agents as the cause of diseases classified elsewhere B96.89 [facility] [address] [id number] [address] [place] [address] Oct, Right ovarian cyst N83.20 [place] [address] [address] [facility] [id number] [address] [place] [address] Sep, [facility] [address] [facility] [id number] [address] [place] [address] Aug, [place] [address] [address] [facility] [id number] [address] [place] [address] 13 Aug, 2015 Right ovarian cyst N83.20 [place] [address] [place] [address] 11 Aug, 2015 Encounter for insertion of i ntrauterine contraceptive device Z30.430 [place] [address] [address] [place] [address] 07 Aug, 2015 Encounter for counseling reg arding contraception Z30.9 [place] [address] [address] 04 Aug, 2015 [place] [address] [address] 18 Jul, 2015 Well woman exam Z01.419 ; We ight gain R63.5 and BMI 27.0-27.9,adult Z68.27 [place] [address] [address] 18 Jul, 2015 Erythema nodosum L52 and Fat igue R53.83 [place] [address] [address] 16 Jul, 2015 Erythema nodosum L52 [place] [address] [address] 30 Jun, 2015 General counseling and advic e for contraceptive management Z30.09 and OCP (oral contraceptive pills) initiation Z30.011 [place] [address] [address] 27 Jun, 2015 Bug bites W57.XXXA and Itchi ng L29.9 [place] [address] [place] [address] 19 Jun, 2015 Well woman exam Z01.419 ; We ight gain R63.5 and BMI 27.0-27.9,adult Z68.27 [place] [address] [place] [address] 27 May, 2015 Ankle pain, left M25.572 [facility] [address] [id number] [place] [id number] December, Dental examination V72.2 [facility] [address] [id number] [address] [place] [id number] December, Dental examination V72.2 [facility] [address] [id number] [address] [place] [address] Nov, [facility] [address] [id number] [address] [place] [address] Nov, [facility] [address] [id number] [address] [place] [address] Sep, [facility] [address] [id number] [address] [place] [address] Sep, [facility] [address] [id number] [address] [place] [address] Sep, [facility] [address] [id number] [address] [place] [address] Sep, [facility] [address] [id number] [address] [place] [address] Jun, [facility] [address] [id number] [address] [place] [address] Jun, [facility] [address] [id number] [address] [place] [address] May, [facility] [address] [id number] [address] [place] [address] May, [facility] [address] [id number] [address] [place] [address] Apr, [facility] [address] [id number] [address] [place] [address] Apr, [facility] [address] [id number] [address] [place] [phone] Apr, [facility] [address] [id number] [address] [place] [address], [place] [address] Apr, [facility] [address] [id number] [address] [place] [address], [place] [address] Mar, [facility] [address] [id number] [address] [place] [address], [place] [address] Mar, [facility] [address] [id number] [address] [place] [address], [place] [address] December, [facility] [address] [id number] [address] [place] [address], [place] [address] December, [facility] [address] [id number] [address] [place] [address], [place] [address] Nov, [facility] [address] [id number] [address] [place] [address], [place] [address] Nov, [facility] [address] [id number] [address] [place] [address], [place] [address] Sep, [facility] [address] [id number] [address] [place] [address], [place] [address] Sep, [facility] [address] [id number] [address] [place] [address], [place] [address] Sep, [facility] [address] [id number] [address] [place] [address], [place] [address] Sep, [facility] [address] [id number] [address] [place] [address], [place] [address] Sep, [facility] [address] [id number] [address] [place] [address], [place] [address] Sep, [facility] [address] [id number] [address] [place] [address], [place] [address] Aug, [facility] [address] [id number] [address] [place] [address], [place] [address] Aug, [facility] [address] [id number] [address] [place] [address], [place] [address] Aug, [facility] [address] [id number] [address] [place] [address], [place] [address] Aug, [facility] [address] [id number] [address] [place] [address], [place] [address] Aug, [facility] [address] [id number] [address] [place] [address], [place] [address] Aug, [facility] [address] [id number] [address] [place] [address], [place] [address] Aug, [facility] [address] [id number] [address] [place] [address], [place] [address] Aug, [facility] [address] [id number] [address] [place] [address], [place] [address] Jun, [facility] [address] [id number] [address] [place] [address], [place] [address] Jun, [facility] [address] [id number] [address] [place] [address], [place] [address] Jan, [facility] [address] [id number] [address] [place] [address], [place] [address] Jan, [facility] [address] [id number] [address] [place] [address], [place] [address] Oct, [facility] [address] [id number] [address] [place] [address], [place] [address] Oct, [facility] [address] [id number] [address] [place] [address], [place] [address] Oct, [facility] [address] [id number] [address] [place] [address], [place] [address] Oct, [facility] [address] [id number] [address] [place] [address], [place] [address] Oct, [facility] [address] [id number] [address] [place] [address], [place] [address] Sep, [facility] [address] [id number] [address] [place] [address] Sep, [facility] [address] [facility] [id number] [address] [place] [address] Sep, [facility] [address] [facility] [id number] [address] [place] [address] May, [facility] [address] [facility] [id number] [address] [place] [address] May, [facility] [address] [facility] [id number] [address] [place] [address] May, [facility] [address] [facility] [id number] [address] [place] [address] Jan, [facility] [address] [facility] [id number] [address] [place] [address] Aug, IMMUNIZATIONS No Known Immunizations SOCIAL HISTORY Never Assessed REASON FOR VISIT PLAN OF CARE VITAL SIGNS MEDICATIONS No Known Medications RESULTS No Results PROCEDURES No Known procedures INSTRUCTIONS MEDICATIONS ADMINISTERED No Known Medications MEDICAL (GENERAL) HISTORY Type Description Date Surgical History No know Surgical history Hospitalization History childbirth 2008 Hospitalization History childbirth 2019
--- OUTSIDE RECORDS SUMMARY | 2020-03-13 11:56 | XMS REPORT ---
Author Author Chiquita Hernandez Doctor Organization [facility] Address Unknown Phone Unavailable Care Team Providers Care Geosciences Professor Name Role Phone Migration, Doctor Unavailable Unavailable PROBLEMS Type Condition ICD9-CM Code [id number] Code Onset Dates Condition S tatus SNOMED Code Problem Encounter for insertion of intrauterine contraceptive device Z30.430 Active 67135155 Problem Microcytic anemia D50.9 Active 23 9737925 Problem Itching L29.9 Active 419259735 Problem Bug bites W57.XXXA Active 344178544 ALLERGIES No Information ENCOUNTERS Encounter Location Date Diagnosis [facility] [address] [id number] [address] [place] [address] Feb, Viral upper respiratory trac t infection J06.9 [facility] WALK IN [facility] [address] [id number] [address] [place] [address] May, [place] [address] [address] May, care in second trimester Z34.92 [place] [address] [address] May, Microcytic anemia D50.9 [place] [address] [address] May, Microcytic anemia D50.9 [place] [address] [address] 26 Apr, 2018 Multigravida in first trimester Z34.81 a nd Normal in multigravida Z34.80 [place] [address] [address] 20 Apr, 2018 [place] [address] [address] 14 Apr, 2018 [place] [address] [place] [address] Apr, [place] [address] [address] Apr, Encounter for test Z32.00 [facility] [address] [facility] [id number] [address] [place] [address] Feb, Irritant contact dermatitis due to other chemical products L24.5 [place] [address] [address] Feb, Frequent headaches R51 [facility] [address] [facility] [id number] [address] [place] [address] Feb, Frequent headaches R51 [facility] [address] [id number] [address] [place] [address] Aug, Other viral agents as the ca use of diseases classified elsewhere B97.89 and Acute upper respiratory infection, unspecified J06.9 [place] [address] [address] Feb, Pyelonephritis N12 [place] [address] [address] Nov, Leukorrhea N89.8 ; Acute vaginitis N76.0 and Other specified bacterial agents as the cause of diseases classified elsewhere B96.89 [place] [address] [address] Oct, Right ovarian cyst N83.20 [place] [address] [address] Sep, [place] [address] [address] Aug, [place] [address] [address] Aug, Right ovarian cyst N83.20 [place] [address] [address] Aug, Encounter for insertion of intrauterine contraceptive device Z30.430 [place] [address] [address] 07 Aug, 2015 Encounter for counseling regarding contr aception Z30.9 [place] [address] [address] 04 Aug, 2015 [place] [address] [address] Jul, Well woman exam Z01.419 ; Weight gain R6 3.5 and BMI 27.0-27.9,adult Z68.27 [place] [address] [address] 18 Jul, 2015 Erythema nodosum L52 and Fatigue R53.[address] [address] 16 Jul, 2015 Erythema nodosum L52 [address] [address] 30 Jun, 2015 General counseling and advice for contra ceptive management Z30.09 and OCP (oral contraceptive pills) initiation Z30.[address] [address] 27 Jun, 2015 Bug bites W57.XXXA and Itching L29.[address] [address] Jun, Well woman exam Z01.419 ; Weight gain R6 3.5 and BMI 27.0-27.9,adult Z68.[address] [address] May, Ankle pain, left M25.572 [facility] [address] [id number] December, Dental examination V72.2 [facility] [address] [id number] December, Dental examination V72.[address] [address] 14 Nov, 2014 [facility] [address] [facility] [place] [address] Nov, [facility] [address] [facility] [place] [address] Sep, [facility] [address] [id number] [place] [address] Sep, 2014 [facility] [address] [facility] [place] [address] Sep, [facility] [address] [id number] [place] [address] Sep, [facility] [address] [id number] [place] [address] Jun, [facility] [address] [facility] [place] [address] Jun, [facility] [address] [facility] [place] [address] May, [facility] [address] [facility] [place] [address] May, [facility] [address] [id number] [place] [address] Apr, [facility] [address] [facility] [place] [address] Apr, [facility] [address] [facility] [place] [address] Apr, [facility] [address] [facility] [place] [address] Apr, [facility] [address] [facility] [place] [address] Mar, [facility] [address] [facility] [place] [address] Mar, [facility] [address] [facility] [place] [address] December, [facility] [address] [id number] [place] [address] December, [facility] [address] [id number] [place] [address] Nov, [facility] [address] [id number] [place] [address] Nov, [facility] [address] [facility] [place] [address] Sep, [facility] [address] [id number] [place] [address] Sep, [facility] [address] [facility] [place] [address] Sep, [facility] [address] [id number] [place] [address] Sep, [facility] [address] [facility] [place] [address] Sep, [facility] [address] [facility] [place] [address] Sep, [facility] [address] [facility] [place] [address] Aug, [facility] [address] [facility] [place] [address] Aug, [facility] [address] [facility] [place] [address] Aug, [facility] [address] [id number] [place] [address] Aug, [facility] [address] [id number] [place] [address] Aug, [facility] [address] [id number] [place] [address] Aug, [facility] [address] [id number] [place] [address] Aug, [facility] [address] [id number] [place] [address] Aug, [facility] [address] [facility] [id number] [place] [address] Jun, [facility] [address] [facility] [id number] [place] [address] Jun, [facility] [address] [id number] [place] [address] Jan, [facility] [address] [id number] [place] [address] Jan, [facility] [address] [facility] [id number] [place] [address] Oct, [facility] [address] [id number] [place] [address] Oct, [facility] [address] [id number] [place] [address] Oct, [facility] [address] [id number] [place] [address] Oct, [facility] [address] [id number] [place] [address] Oct, [facility] [address] [id number] [place] [address] Sep, [facility] [address] [id number] [place] [address] Sep, [facility] [address] [id number] [place] [address] Sep, [facility] [address] [id number] [place] [address] May, [facility] [address] [id number] [place] [address] May, [facility] [address] [id number] [place] [address] May, [facility] [address] [id number] [place] [address] Jan, [facility] [address] [id number] [place] [address] Aug, IMMUNIZATIONS No Known Immunizations SOCIAL HISTORY Never Assessed REASON FOR VISIT PLAN OF CARE VITAL SIGNS MEDICATIONS No Known Medications RESULTS No Results PROCEDURES Procedure Date Ordered Result Body Site THER/PROPH/DIAG INJ, SC/IM January 12, 2014 Medroxyprogesterone inj January 12, 2014 URINE TEST January 12, 2014 INSTRUCTIONS MEDICATIONS ADMINISTERED No Known Medications MEDICAL (GENERAL) HISTORY Type Description Date Surgical History No know Surgical history Hospitalization History childbirth 2008 Hospitalization History childbirth 2019
--- OUTSIDE RECORDS SUMMARY | 2020-03-13 11:56 | XMS REPORT ---
Author Author Chiquita Hernandez Doctor Organization [facility] Address Unknown Phone Unavailable Care Team Providers Care Fisher Gill Net Name Role Phone Migration, Doctor Unavailable Unavailable PROBLEMS Type Condition ICD9-CM Code TAO57-AU Code Onset Dates Condition S tatus SNOMED Code Problem Encounter for insertion of intrauterine contraceptive device Z30.430 Active 34201695 Problem Microcytic anemia D50.9 Active 23 3043857 Problem Itching L29.9 Active 080337867 Problem Bug bites W57.XXXA Active [id number] ALLERGIES No Information ENCOUNTERS Encounter Location Date Diagnosis [facility] [address] [facility] [id number] [address] [place] [phone] May, [facility] [address] [facility] [id number] [address] [place] [address] May, care in second trim elizabeth Z34.92 [facility] [address] [facility] [id number] [address] [place] [address] May, Microcytic anemia D50.9 [facility] [address] [facility] [id number] [address] [place] [address] May, Microcytic anemia D50.9 [facility] [address] [facility] [id number] [address] [place] [address] Apr, Multigravida in first trimes ter Z34.81 and Normal in multigravida Z34.80 [facility] [address] [facility] [id number] [address] [place] [address] Apr, [facility] [address] [facility] [id number] [address] [place] [id number] 14 Apr, 2018 [facility] [address] [facility] [id number] [address] [place] [phone] Apr, [facility] [address] [facility] [id number] [address] [place] [id number] 07 Apr, 2018 Encounter for test Z32.00 [facility] [address] [facility] [id number] [address] [place] [phone] Feb, Irritant contact dermatitis due to other chemical products L24.5 [place] [address] [id number] [address] [place] [address] Feb, Frequent headaches R51 [facility] [address] [facility] [id number] [address] [place] [phone] Feb, Frequent headaches R51 [facility] [address] [facility] [id number] [address] [place] [phone] Aug, Other viral agents as the ca use of diseases classified elsewhere B97.89 and Acute upper respiratory infection, unspecified J06.9 [place] [address] [place] [id number] [address] [place] [address] Feb, Pyelonephritis N12 [place] [address] [facility] [id number] [address] [place] [address] Nov, Leukorrhea N89.8 ; Acute vag initis N76.0 and Other specified bacterial agents as the cause of diseases classified elsewhere B96.89 [place] [address] [facility] [id number] [address] [place] [address] Oct, Right ovarian cyst N83.20 [place] [address] [place] [id number] [address] [place] [address] Sep, [place] [address] [facility] [id number] [address] [place] [address] Aug, [place] [address] [place] [id number] [address] [place] [address] Aug, Right ovarian cyst N83.20 [place] [address] [place] [id number] [address] [place] [address] Aug, Encounter for insertion of i ntrauterine contraceptive device Z30.430 [place] [id number] [place] [address] 07 Aug, 2015 Encounter for counseling reg arding contraception Z30.9 [place] [address] [address] 04 Aug, 2015 [place] [address] [address] 18 Jul, 2015 Well woman exam Z01.419 ; We ight gain R63.5 and BMI 27.0-27.9,adult Z68.27 [place] [address] [address] 18 Jul, 2015 Erythema nodosum L52 and Fat igue R53.83 [place] [address] [address] 16 Jul, 2015 Erythema nodosum L52 [place] [address] [address] 30 Jun, 2015 General counseling and advic e for contraceptive management Z30.09 and OCP (oral contraceptive pills) initiation Z30.[address] [address] 27 Jun, 2015 Bug bites W57.XXXA and Itchi ng L29.9 [place] [id number] [place] [address] 19 Jun, 2015 Well woman exam Z01.419 ; We ight gain R63.5 and BMI 27.0-27.9,adult Z68.27 [place] [id number] [place] [address] May, Ankle pain, left M25.572 [facility] [id number] [place] [id number] December, Dental examination V72.2 [facility] [address] [place] [id number] [address] [place] [id number] December, Dental examination V72.2 [facility] [address] [id number] [address] [place] [address], [place] [address] 14 Nov, 2014 [facility] [address] [id number] [address] [place] [address], [place] [address] Nov, [facility] [address] [id number] [address] [place] [address], [place] [address] Sep, 2014 [facility] [address] [id number] [address] [place] [address], [place] [address] Sep, 2014 [facility] [address] [id number] [address] [place] [address], [place] [address] Sep, 2014 [facility] [address] [id number] [address] [place] [address], [place] [address] Sep, 2014 [facility] [address] [id number] [address] [place] [address], [place] [address] Jun, [facility] [address] [id number] [address] [place] [phone] Jun, [facility] [address] [id number] [address] [place] [address], [place] [address] May, [facility] [address] [id number] [address] [place] [phone] May, [facility] [address] [id number] [address] [place] [phone] Apr, [facility] [address] [id number] [address] [place] [phone] 29 Apr, 2014 [facility] [address] [id number] [address] [place] [address], [place] [address] Apr, [facility] [address] [id number] [address] [place] [address], [place] [id number] Apr, [facility] [address] [id number] [address] [place] [address], [place] [address] Mar, [facility] [address] [id number] [address] [place] [phone] Mar, [facility] [address] [id number] [address] [place] [address], [place] [id number] December, [facility] [address] [id number] [address] [place] [address], [place] [id number] December, [facility] [address] [id number] [address] [place] [address], [place] [id number] Nov, [facility] [address] [id number] [address] [place] [address], [place] [id number] Nov, [facility] [address] [id number] [address] [place] [address], [place] [address] Sep, [facility] [address] [id number] [address] [place] [address], [place] [address] Sep, [facility] [address] [id number] [address] [place] [address], [place] [address] Sep, [facility] [address] [id number] [address] [place] [address], [place] [address] Sep, [facility] [address] [id number] [address] [place] [address], [place] [address] Sep, [facility] [address] [id number] [address] [place] [address], [place] [address] Sep, [facility] [address] [id number] [address] [place] [address], [place] [address] Aug, [facility] [address] [id number] [address] [place] [address], [place] [address] Aug, [facility] [address] [id number] [address] [place] [address], [place] [address] Aug, [facility] [address] [id number] [address] [place] [address], [place] [id number] Aug, [facility] [address] [id number] [address] [place] [address], [place] [id number] Aug, [facility] [place] [address] [id number] [address] [place] [address], [place] [address] Aug, [facility] [address] [id number] [address] [place] [address], [place] [id number] Aug, [facility] [address] [id number] [address] [place] [address], [place] [address] Aug, [facility] [address] [id number] [address] [place] [address], [place] [address] Jun, [facility] [address] [id number] [address] [place] [address], [place] [address] Jun, [facility] [address] [id number] [address] [place] [address], [place] [address] Jan, [facility] [address] [id number] [address] [place] [address], [place] [address] Jan, [facility] [place] [address] [id number] [address] [place] [address], [place] [id number] Oct, [facility] [place] [address] [id number] [address] [place] [address], [place] [id number] Oct, [facility] [address] [id number] [address] [place] [address], [place] [address] Oct, [facility] [address] [id number] [address] [place] [address], [place] [address] Oct, [facility] [address] [id number] [address] [place] [address], [place] [address] Oct, [facility] [address] [id number] [address] [place] [address], [place] [address] Sep, [facility] [address] [id number] [address] [place] [address], [place] [id number] Sep, [facility] [address] [id number] [address] [place] [address], [place] [id number] Sep, [facility] [address] [id number] [address] [place] [id number] May, [facility] [address] [facility] [id number] [address] [place] [phone] May, [facility] [address] [facility] [id number] [address] [place] [id number] May, [facility] [address] [facility] [id number] [address] [place] [id number] Jan, [facility] [address] [facility] [id number] [address] [place] [phone] Aug, IMMUNIZATIONS No Known Immunizations SOCIAL HISTORY Never Assessed REASON FOR VISIT EMR-[facility] PLAN OF CARE VITAL SIGNS MEDICATIONS Unknown Medications RESULTS No Results PROCEDURES No Known procedures INSTRUCTIONS MEDICATIONS ADMINISTERED No Known Medications MEDICAL (GENERAL) HISTORY Type Description Date Surgical History No know Surgical history Hospitalization History childbirth 2008
--- OUTSIDE RECORDS SUMMARY | 2020-03-13 11:56 | XMS REPORT ---
Author Author Chiquita ELAM Organization [facility] Address [address] [place] [address] Care Team Providers Care Hog Slaughterer Name Role Phone CONCHITA ELAM Unavailable PROBLEMS Type Condition ICD9-CM Code NAV15-YE Code Onset Dates Condition S tatus SNOMED Code Problem Encounter for insertion of intrauterine contraceptive device Z30.430 Active 91701581 Problem Microcytic anemia D50.9 Active 23 0125829 Problem Itching L29.9 Active 308530351 Problem Bug bites W57.XXXA Active 060287431 ALLERGIES No Information ENCOUNTERS Encounter Location Date Diagnosis [facility] [address] [id number] [address] [place] [address] Feb, Viral upper respiratory trac t infection J06.9 [facility] [address] [id number] [address] [place] [phone] May, [facility] [address] [id number] [address] [place] [address] May, care in second trim elizabeth Z34.92 [facility] [address] [id number] [address] [place] [address] May, Microcytic anemia D50.9 [facility] [address] [id number] [address] [place] [address] May, Microcytic anemia D50.9 [facility] [address] [id number] [address] [place] [address] Apr, Multigravida in first trimes ter Z34.81 and Normal in multigravida Z34.80 [facility] [address] [id number] [address] [place] [address] Apr, [facility] [address] [id number] [address] [place] [id number] 14 Apr, 2018 [facility] [address] [facility] [id number] [address] [place] [id number] 11 Apr, 2018 [facility] [address] [facility] [id number] [address] [place] [address] 07 Apr, 2018 Encounter for test Z32.00 [facility] [address] [facility] [id number] [address] [place] [phone] Feb, Irritant contact dermatitis due to other chemical products L24.5 [facility] [address] [id number] [address] [place] [id number] Feb, Frequent headaches R51 [facility] [address] [facility] [id number] [address] [place] [phone] Feb, Frequent headaches R51 [facility] [id number] [address] [place] [phone] Aug, Other viral agents as the ca use of diseases classified elsewhere B97.89 and Acute upper respiratory infection, unspecified J06.9 [place] [address] [facility] [id number] [address] [place] [address] Feb, Pyelonephritis N12 [place] [address] [address] [facility] [id number] [address] [place] [address] Nov, Leukorrhea N89.8 ; Acute vag initis N76.0 and Other specified bacterial agents as the cause of diseases classified elsewhere B96.89 [facility] [address] [id number] [address] [place] [address] Oct, Right ovarian cyst N83.20 [place] [address] [address] [facility] [id number] [address] [place] [phone] Sep, [facility] [address] [facility] [id number] [address] [place] [phone] Aug, [place] [address] [address] [facility] [id number] [address] [place] [id number] 13 Aug, 2015 Right ovarian cyst N83.20 [place] [address] [place] [address] 11 Aug, 2015 Encounter for insertion of i ntrauterine contraceptive device Z30.430 [place] [address] [place] [address] 07 Aug, 2015 Encounter for counseling reg arding contraception Z30.9 [place] [address] [address] 04 Aug, 2015 [place] [address] [address] 18 Jul, 2015 Well woman exam Z01.419 ; We ight gain R63.5 and BMI 27.0-27.9,adult Z68.27 [place] [address] [address] 18 Jul, 2015 Erythema nodosum L52 and Fat igue R53.83 [place] [address] [id number] 16 Jul, 2015 Erythema nodosum L52 [place] [address] [address] 30 Jun, 2015 General counseling and advic e for contraceptive management Z30.09 and OCP (oral contraceptive pills) initiation Z30.011 [place] [address] [address] 27 Jun, 2015 Bug bites W57.XXXA and Itchi ng L29.9 [place] [address] [place] [address] 19 Jun, 2015 Well woman exam Z01.419 ; We ight gain R63.5 and BMI 27.0-27.9,adult Z68.27 [place] [address] [place] [address] 27 May, 2015 Ankle pain, left M25.572 [facility] [address] [id number] [place] [id number] December, Dental examination V72.2 [facility] [address] [id number] [address] [place] [id number] December, Dental examination V72.2 [facility] [address] [id number] [address] [place] [address] Nov, [facility] [address] [id number] [address] [place] [address] Nov, [facility] [address] [id number] [address] [place] [phone] Sep, [facility] [address] [id number] [address] [place] [address] Sep, [facility] [address] [id number] [address] [place] [id number] Sep, [facility] [address] [id number] [address] [place] [id number] Sep, [facility] [address] [id number] [address] [place] [address] Jun, [facility] [address] [id number] [address] [place] [phone] Jun, [facility] [address] [id number] [address] [place] [phone] May, [facility] [address] [id number] [address] [place] [address] May, [facility] [address] [id number] [address] [place] [id number] Apr, [facility] [address] [id number] [address] [place] [address] Apr, [facility] [address] [id number] [address] [place] [id number] Apr, [facility] [address] [id number] [address] [place] [address], [place] [address] Apr, [facility] [address] [id number] [address] [place] [address], [place] [address] Mar, [facility] [address] [id number] [address] [place] [address], [place] [address] Mar, [facility] [address] [id number] [address] [place] [address], [place] [address] December, [facility] [address] [id number] [address] [place] [address], [place] [address] December, [facility] [address] [id number] [address] [place] [address], [place] [address] Nov, [facility] [address] [id number] [address] [place] [address], [place] [address] Nov, [facility] [address] [id number] [address] [place] [address], [place] [address] Sep, [facility] [address] [id number] [address] [place] [address], [place] [address] Sep, [facility] [address] [id number] [address] [place] [address], [place] [address] Sep, [facility] [address] [id number] [address] [place] [address], [place] [address] Sep, [facility] [address] [id number] [address] [place] [address], [place] [address] Sep, [facility] [address] [id number] [address] [place] [address], [place] [address] Sep, [facility] [address] [id number] [address] [place] [address], [place] [address] Aug, [facility] [address] [id number] [address] [place] [address], [place] [address] Aug, [facility] [address] [id number] [address] [place] [address], [place] [address] Aug, [facility] [address] [id number] [address] [place] [address], [place] [address] Aug, [facility] [address] [id number] [address] [place] [address], [place] [address] Aug, [facility] [address] [id number] [address] [place] [address], [place] [address] Aug, [facility] [address] [id number] [address] [place] [address], [place] [address] Aug, [facility] [address] [id number] [address] [place] [address], [place] [address] Aug, [facility] [address] [id number] [address] [place] [address], [place] [address] Jun, [facility] [address] [id number] [address] [place] [address], [place] [address] Jun, [facility] [address] [id number] [address] [place] [address], [place] [address] Jan, [facility] [address] [id number] [address] [place] [address], [place] [address] Jan, [facility] [address] [id number] [address] [place] [address], [place] [address] Oct, [facility] [address] [id number] [address] [place] [address], [place] [address] Oct, [facility] [address] [id number] [address] [place] [address], [place] [address] Oct, [facility] [address] [id number] [address] [place] [address], [place] [address] Oct, [facility] [address] [id number] [address] [place] [address], [place] [address] Oct, [facility] [address] [id number] [address] [place] [address], [place] [address] Sep, [facility] [address] [id number] [address] [place] [address] Sep, [facility] [address] [id number] [address] [place] [address] Sep, [facility] [address] [id number] [address] [place] [phone] May, [facility] [address] [id number] [address] [place] [address] May, [facility] [address] [id number] [address] [place] [address] May, [facility] [address] [facility] [id number] [address] [place] [address] Jan, [facility] [address] [facility] [id number] [address] [place] [address] Aug, IMMUNIZATIONS No Known Immunizations SOCIAL HISTORY Never Assessed REASON FOR VISIT PLAN OF CARE VITAL SIGNS Height 62 in 2014-05-18 Weight 150.7 lbs 2014-05-18 Temperature 97.1 degrees Fahrenheit 2014-05-18 Heart Rate 68 bpm 2014-05-18 Respiratory Rate 18 2014-05-18 Blood pressure systolic 112 mmHg 2014-05-18 Blood pressure diastolic 62 mmHg 2014-05-18 MEDICATIONS No Known Medications RESULTS No Results PROCEDURES Procedure Date Ordered Result Body Site CHEST X-RAY May 18, 2014 INSTRUCTIONS MEDICATIONS ADMINISTERED No Known Medications MEDICAL (GENERAL) HISTORY Type Description Date Surgical History No know Surgical history Hospitalization History childbirth 2008 Hospitalization History childbirth 2018
--- OUTSIDE RECORDS SUMMARY | 2020-03-13 11:56 | XMS REPORT ---
Author Author Chiquita Short Organization [facility] Address [address] [place] [address] Care Team Providers Care Energy Conservation Specialist Name Role Phone LITA Short Unavailable PROBLEMS Type Condition ICD9-CM Code GUT01-[place] Code Onset Dates Condition S tatus SNOMED Code Problem Encounter for insertion of intrauterine contraceptive device Z30.430 Active 24050162 Problem Microcytic anemia D50.9 Active 23 7403816 Problem Itching L29.9 Active 975198900 Problem Bug bites W57.XXXA Active [id number] ALLERGIES No Information ENCOUNTERS Encounter Location Date Diagnosis [facility] [address] [id number] [address] [place] [id number] Feb, Viral upper respiratory trac t infection J06.9 [facility] [address] [id number] [address] [place] [address] May, [facility] [address] [id number] [address] [place] [address] May, care in second trim elizabeth Z34.92 [facility] [id number] [place] [address] May, Microcytic anemia D50.9 [facility] [address] [id number] [address] [place] [address] May, Microcytic anemia D50.9 [facility] [address] [id number] [address] [place] [address] Apr, Multigravida in first trimes ter Z34.81 and Normal in multigravida Z34.80 [facility] [id number] [address] [place] [address] Apr, [facility] [address] [id number] [address] [place] [id number] 14 Apr, 2018 [facility] [address] [facility] [id number] [address] [place] [id number] 11 Apr, 2018 [facility] [address] [facility] [id number] [address] [place] [id number] 07 Apr, 2018 Encounter for test Z32.00 [facility] [address] [id number] [address] [place] [address] Feb, Irritant contact dermatitis due to other chemical products L24.5 [facility] [address] [id number] [address] [place] [phone] Feb, Frequent headaches R51 [facility] [address] [facility] [id number] [address] [place] [phone] Feb, Frequent headaches R51 [facility] [address] [facility] [id number] [address] [place] [address] Aug, Other viral agents as the ca use of diseases classified elsewhere B97.89 and Acute upper respiratory infection, unspecified J06.9 [place] [address] [facility] [id number] [address] [place] [address] Feb, Pyelonephritis N12 [place] [address] [facility] [id number] [address] [place] [address] Nov, Leukorrhea N89.8 ; Acute vag initis N76.0 and Other specified bacterial agents as the cause of diseases classified elsewhere B96.89 [facility] [address] [id number] [address] [place] [address] Oct, Right ovarian cyst N83.20 [facility] [address] [facility] [id number] [address] [place] [address] Sep, [facility] [address] [facility] [id number] [address] [place] [address] Aug, [facility] [address] [id number] 13 Aug, 2015 Right ovarian cyst N83.20 [place] [address] [address] 11 Aug, 2015 Encounter for insertion of i ntrauterine contraceptive device Z30.430 [place] [address] [address] 07 Aug, 2015 Encounter for counseling reg arding contraception Z30.9 [place] [address] [id number] 04 Aug, [address] [id number] 18 Jul, 2015 Well woman exam Z01.419 ; We ight gain R63.5 and BMI 27.0-27.9,adult Z68.[address] [address] 18 Jul, 2015 Erythema nodosum L52 and Fat igue R53.83 [place] [address] [address] 16 Jul, 2015 Erythema nodosum L52 [place] [address] [id number] 30 Jun, 2015 General counseling and advic e for contraceptive management Z30.09 and OCP (oral contraceptive pills) initiation Z30.011 [place] [address] [address] 27 Jun, 2015 Bug bites W57.XXXA and Itchi ng L29.9 [place] [address] [id number] 19 Jun, 2015 Well woman exam Z01.419 ; We ight gain R63.5 and BMI 27.0-27.9,adult Z68.27 [place] [address] [address] 27 May, 2015 Ankle pain, left M25.572 [facility] [address] [id number] [place] [id number] December, Dental examination V72.2 [facility] [address] [id number] [address] [place] [id number] December, Dental examination V72.2 [facility] [address] [id number] [address] [place] [id number] 14 Nov, 2014 [facility] [address] [id number] [address] [place] [phone] Nov, [facility] [address] [id number] [address] [place] [address] Sep, [facility] [address] [id number] [address] [place] [id number] Sep, [facility] [address] [id number] [address] [place] [phone] Sep, [facility] [address] [id number] [address] [place] [address] Sep, [facility] [address] [id number] [address] [place] [phone] Jun, [facility] [address] [id number] [address] [place] [phone] Jun, [facility] [address] [id number] [address] [place] [address] May, [facility] [address] [id number] [address] [place] [phone] May, [facility] [address] [id number] [address] [place] [address] Apr, [facility] [address] [id number] [address] [place] [phone] Apr, [facility] [address] [id number] [address] [place] [phone] Apr, [facility] [address] [id number] [address] [place] [address], [place] [address] Apr, [facility] [address] [id number] [address] [place] [address], [place] [address] Mar, [facility] [address] [id number] [address] [place] [address], [place] [address] Mar, [facility] [address] [id number] [address] [place] [address], [place] [address] December, [facility] [address] [id number] [address] [place] [address], [place] [address] December, [facility] [address] [id number] [address] [place] [address], [place] [address] Nov, [facility] [address] [id number] [address] [place] [address], [place] [address] Nov, [facility] [address] [id number] [address] [place] [address], [place] [address] Sep, [facility] [address] [id number] [address] [place] [address], [place] [address] Sep, [facility] [address] [id number] [address] [place] [address], [place] [address] Sep, [facility] [address] [id number] [address] [place] [address], [place] [address] Sep, [facility] [address] [id number] [address] [place] [address], [place] [address] Sep, [facility] [address] [id number] [address] [place] [address], [place] [address] Sep, [facility] [address] [id number] [address] [place] [address], [place] [address] Aug, [facility] [address] [id number] [address] [place] [address], [place] [address] Aug, [facility] [address] [id number] [address] [place] [address], [place] [address] Aug, [facility] [address] [id number] [address] [place] [address], [place] [address] Aug, [facility] [address] [id number] [address] [place] [address], [place] [address] Aug, [facility] [address] [id number] [address] [place] [address], [place] [address] Aug, [facility] [address] [id number] [address] [place] [address], [place] [address] Aug, [facility] [address] [id number] [address] [place] [address], [place] [address] Aug, [facility] [address] [id number] [address] [place] [address], [place] [address] Jun, [facility] [address] [id number] [address] [place] [address], [place] [address] Jun, [facility] [address] [id number] [address] [place] [address], [place] [address] Jan, [facility] [address] [id number] [address] [place] [address], [place] [address] Jan, [facility] [address] [id number] [address] [place] [address], [place] [address] Oct, [facility] [address] [id number] [address] [place] [address], [place] [address] Oct, [facility] [address] [id number] [address] [place] [address], [place] [address] Oct, [facility] [address] [id number] [address] [place] [address], [place] [address] Oct, [facility] [address] [id number] [address] [place] [address], [place] [address] Oct, [facility] [address] [id number] [address] [place] [address], [place] [address] Sep, [facility] [address] [id number] [address] [place] [address] Sep, [facility] [address] [id number] [address] [place] [address] Sep, [facility] [address] [id number] [address] [place] [address] May, [facility] [address] [facility] [id number] [address] [place] [address] May, [facility] [address] [facility] [id number] [address] [place] [address] May, [facility] [address] [facility] [id number] [address] [place] [id number] Jan, [facility] [address] [facility] [id number] [address] [place] [address] Aug, IMMUNIZATIONS No Known Immunizations SOCIAL HISTORY Never Assessed REASON FOR VISIT PLAN OF CARE VITAL SIGNS MEDICATIONS No Known Medications RESULTS No Results PROCEDURES No Known procedures INSTRUCTIONS MEDICATIONS ADMINISTERED No Known Medications MEDICAL (GENERAL) HISTORY Type Description Date Surgical History No know Surgical history Hospitalization History childbirth 2008 Hospitalization History childbirth 2019
--- OUTSIDE RECORDS SUMMARY | 2020-03-13 11:57 | XMS REPORT | Continuity of Care Document ---
Author Organization Unknown Address Unknown Phone Unavailable Allergies Active Description Code Type Severity Reaction Onset Reported/Identified Relationship to Patient Clinical Status Yes No Known Drug Allergies [id number] Drug Allergy Unknown N/A 06/26/2018 Medications There is no data. Problems Date Dx Coded Attending Type Code Diagnosis Diagnosed By 06/12/2018 SYLVESTER YUONG MD, Ot Z36. 89 ENCOUNTER FOR OTHER SPECIFIED 06/12/2018 SYLVESTER YOUNG MD, Ot Z3A. 16 16 WEEKS GESTATION OF 06/20/2018 SYLVESTER YOUNG MD, Ot Z36. 89 ENCOUNTER FOR OTHER SPECIFIED 06/20/2018 SYLVESTER YOUNG MD, Ot3A. 16 16 WEEKS GESTATION OF 06/26/2018 SYLVESTER YOUNG MD, Ot Z36. 89 ENCOUNTER FOR OTHER SPECIFIED 06/26/2018 SYLVESTER YOUNG MD, Ot Z3A. 16 16 WEEKS GESTATION OF 06/26/2018 SYLVESTER YOUNG MD, Ot Z36. 89 ENCOUNTER FOR OTHER SPECIFIED 06/26/2018 SYLVESTER YOUNG MD, Ot Z3A. 16 16 WEEKS GESTATION OF 06/26/2018 AZUCENA TEIXEIRA Ot O20.9 HEMORRHAGE IN EARLY , UNSPECIFI 06/26/2018 BERNHAWA AZUCENA Ot O23.41 UNSP INFCT OF URINARY TRACT IN 06/26/2018 BERNHAWA AZUCENA Ot Z3A.17 17 WEEKS GESTATION OF 06/28/2018 BERNBRANDI SHAIKHIS Ot O20.9 HEMORRHAGE IN EARLY , UNSPECIFI 06/28/2018 BERNHAWA AZUCENA Ot O23.41 UNSP INFCT OF URINARY TRACT IN 06/28/2018 BERNHAWA AZUCENA Ot Z3A.17 17 WEEKS GESTATION OF 07/26/2018 SARA DORADHAA C Ot O46.9 2 ANTEPARTUM HEMORRHAGE, UNSPECIFIED, SECO 07/26/2018 MARIELENA RUIZ DO Ot Z3A.2 2 22 WEEKS GESTATION OF 08/02/2018 SYLVESTER YOUNG MD, Ot Z36. 89 ENCOUNTER FOR OTHER SPECIFIED 08/02/2018 SYLVESTER YOUNG MD, Ot Z3A. 16 16 WEEKS GESTATION OF 08/02/2018 RUIZ DO, MARIELENA C Ot O46.9 2 ANTEPARTUM HEMORRHAGE, UNSPECIFIED, SECO 08/02/2018 RUIZ DO, MARIELENA C Ot Z3A.2 2 22 WEEKS GESTATION OF 08/02/2018 SYLVESTER YOUNG MD, Ot Z36. 89 ENCOUNTER FOR OTHER SPECIFIED 08/02/2018 SYLVESTER YOUNG MD, Ot Z3A. 16 16 WEEKS GESTATION OF 08/02/2018 RUIZ DO, MARIELENA C Ot O46.9 2 ANTEPARTUM HEMORRHAGE, UNSPECIFIED, SECO 08/02/2018 RUIZ DO, MARIELENA C Ot Z3A.2 2 22 WEEKS GESTATION OF 08/13/2018 SYLVESTER YOUNG MD, Ot Z36. 89 ENCOUNTER FOR OTHER SPECIFIED 08/13/2018 SYLVESTER YOUNG MD, Ot Z3A. 16 16 WEEKS GESTATION OF 08/13/2018 RUIZ DO, MARIELENA C Ot O46.9 2 ANTEPARTUM HEMORRHAGE, UNSPECIFIED, SECO 08/13/2018 RUIZ DO, MARIELENA C Ot Z3A.2 2 22 WEEKS GESTATION OF 08/13/2018 RUIZ DO, MARIELENA C Ot D50.9 IRON DEFICIENCY ANEMIA, UNSPECIFIED 08/14/2018 RUIZ DO, MARIELENA C Ot D50.9 IRON DEFICIENCY ANEMIA, UNSPECIFIED 09/27/2018 SYLVESTER YOUNG MD, Ot Z36. 89 ENCOUNTER FOR OTHER SPECIFIED 09/27/2018 SYLVESTER YOUNG MD, Ot Z3A. 16 16 WEEKS GESTATION OF 09/27/2018 RUIZ DO, MARIELENA C Ot O46.9 2 ANTEPARTUM HEMORRHAGE, UNSPECIFIED, SECO 09/27/2018 RUIZ DO, MARIELENA C Ot Z3A.2 2 22 WEEKS GESTATION OF 09/29/2018 RUIZ DO, MARIELENA C Ot O44.4 3 LOW LYING PLACENTA NOS OR WITHOUT HEMOR, 09/29/2018 RUIZ DO, MARIELENA C Ot O99.0 13 ANEMIA COMPLICATING , THIRD TRI 09/29/2018 RUIZ DO, MARIELENA C Ot Z3A.0 0 WEEKS OF GESTATION OF NOT SPEC 11/06/2018 RUIZ DO, MARIELENA C Ot O44.4 3 LOW LYING PLACENTA NOS OR WITHOUT HEMOR, 11/06/2018 RUIZ DO, MARIELENA C Ot O99.0 13 ANEMIA COMPLICATING , THIRD TRI 11/06/2018 RUIZ DO, MARIELENA C Ot Z3A.0 0 WEEKS OF GESTATION OF NOT SPEC 11/07/2018 RUIZ DO, MARIELENA C Ot O44.4 3 LOW LYING PLACENTA NOS OR WITHOUT HEMOR, 11/07/2018 RUIZ DO, MARIELENA C Ot O99.0 13 ANEMIA COMPLICATING , THIRD TRI 11/07/2018 RUIZ DO, MARIELENA C Ot Z3A.0 0 WEEKS OF GESTATION OF NOT SPEC 11/10/2018 SYLVESTER YOUNG MD Ot Z36. 89 ENCOUNTER FOR OTHER SPECIFIED 11/10/2018 SYLVESTER YOUNG MD Ot Z3A. 16 16 WEEKS GESTATION OF 11/10/2018 RUIZ DO, MARIELENA C Ot O46.9 2 ANTEPARTUM HEMORRHAGE, UNSPECIFIED, SECO 11/10/2018 RUIZ DO, MARIELENA C Ot Z3A.2 2 22 WEEKS GESTATION OF 11/10/2018 RUIZ DO, MARIELENA C Ot O44.4 3 LOW LYING PLACENTA NOS OR WITHOUT HEMOR, 11/10/2018 RUIZ DO, MARIELENA C Ot O99.0 13 ANEMIA COMPLICATING , THIRD TRI 11/10/2018 RUIZ DO, MARIELENA C Ot Z3A.0 0 WEEKS OF GESTATION OF NOT SPEC 11/11/2018 SYLVESTER YOUNG MD Ot Z36. 89 ENCOUNTER FOR OTHER SPECIFIED 11/11/2018 SYLVESTER YOUNG MD, Ot Z3A. 16 16 WEEKS GESTATION OF 11/11/2018 RUIZ DO, MARIELENA C Ot O46.9 2 ANTEPARTUM HEMORRHAGE, UNSPECIFIED, SECO 11/11/2018 RUIZ DO, MARIELENA C Ot Z3A.2 2 22 WEEKS GESTATION OF 11/11/2018 RUIZ DO, MARIELENA C Ot O44.4 3 LOW LYING PLACENTA NOS OR WITHOUT HEMOR, 11/11/2018 RUIZ DO, MARIELENA C Ot O99.0 13 ANEMIA COMPLICATING , THIRD TRI 11/11/2018 RUIZ DO, MARIELENA C Ot Z3A.0 0 WEEKS OF GESTATION OF NOT SPEC 11/12/2018 RUIZ DO, MARIELENA C Ot D50.9 IRON DEFICIENCY ANEMIA, UNSPECIFIED 11/12/2018 RUIZ DO, MARIELENA C Ot O99.0 2 ANEMIA COMPLICATING CHILDBIRTH 11/12/2018 RUIZ DO, MARIELENA C Ot Z37.0 SINGLE LIVE 11/12/2018 RUIZ DO, MARIELENA C Ot Z3A.3 8 38 WEEKS GESTATION OF 12/06/2018 SYLVESTER YOUNG MD Ot Z36. 89 ENCOUNTER FOR OTHER SPECIFIED 12/06/2018 SYLVESTER YOUNG MD, Ot Z3A. 16 16 WEEKS GESTATION OF 12/06/2018 RUIZ DO, MARIELENA C Ot O46.9 2 ANTEPARTUM HEMORRHAGE, UNSPECIFIED, SECO 12/06/2018 RUIZ DO, MARIELENA C Ot Z3A.2 2 22 WEEKS GESTATION OF 12/06/2018 RUIZ DO, MARIELENA C Ot O44.4 3 LOW LYING PLACENTA NOS OR WITHOUT HEMOR, 12/06/2018 RUIZ DO, MARIELENA C Ot O99.0 13 ANEMIA COMPLICATING , THIRD TRI 12/06/2018 RUIZ DO, MARIELENA C Ot Z3A.0 0 WEEKS OF GESTATION OF NOT SPEC 01/24/2019 SYLVESTER YOUNG MD Ot Z36. 89 ENCOUNTER FOR OTHER SPECIFIED 01/24/2019 SYLVESTER YOUNG MD, Ot Z3A. 16 16 WEEKS GESTATION OF 01/24/2019 RUIZ DO, MARIELENA C Ot O46.9 2 ANTEPARTUM HEMORRHAGE, UNSPECIFIED, SECO 01/24/2019 RUIZ DO, MARIELENA C Ot Z3A.2 2 22 WEEKS GESTATION OF 01/24/2019 RUIZ DO, MARIELENA C Ot O44.4 3 LOW LYING PLACENTA NOS OR WITHOUT HEMOR, 01/24/2019 RUIZ DO, MARIELENA C Ot O99.0 13 ANEMIA COMPLICATING , THIRD TRI 01/24/2019 RUIZ DO, MARIELENA C Ot Z3A.0 0 WEEKS OF GESTATION OF NOT SPEC Procedures Code Description Performed By Per karyn On [id number] DC [employer] OF [employer], EXTE 11/10/2018 Results Test Result Range CBC MORPHOLOGY - 05/22/18 16:21 CBC MORPHOLOGY NORMAL PERIPHERAL BLOOD SMEAR - 06/14/18 15:14 PATHOLOGIST REVIEW OF PERIPHERAL SMEAR NRG RETICULOCYTE COUNT - 06/14/18 15:14 RETICULOCYTE COUNT, AUTOMATED 1.6 % NRG RETICULOCYTE, ABSOLUTE 10926 cells/uL 20 [id number] Complete urinalysis with reflex to cultu re - 06/26/18 17:51 Urine color determination YELLOW NRG Urine clarity determination VERY CLOUDY NRG Urine pH measurement by test strip 5 5-9 Specific gravity of urine by test strip 1.030 1.016-1.022 Urine protein assay by test strip, semi-quantitative 2+ NEGATIVE Urine glucose detection by automated test strip NE GATIVE NEGATIVE Erythrocytes detection in urine sediment by light micr oscopy 5+ NEGATIVE Urine ketones detection by automated test strip 1+ NEGATIVE Urine nitrite detection by test strip NEGATIVE NEGATIVE Urine total bilirubin detection by test strip NEGA TIVE NEGATIVE Urine urobilinogen measurement by automated test strip (mass/volume) 1 mg/dL NORMAL Urine leukocyte esterase detection by dipstick 2+ NEGATIVE Automated urine sediment erythrocyte cou nt by microscopy (number/high power field) [HPF] NRG Automated urine sediment leukocyte count by microscopy (number/high power field) [HPF] NRG Bacteria detection in urine sediment by light microsco py MODERATE NRG Squamous epithelial cells detection in u rine sediment by light microscopy 25-50 NRG Crystals detection in urine sediment by light microsco py PRESENT NRG Casts detection in urine sediment by light microscopy NONE NRG Mucus detection in urine sediment by light microscopy LARGE NRG Complete urinalysis with reflex to culture YES NRG Calcium oxalate crystals detection in ur ine sediment by light microscopy LARGE NRG Bacterial urine culture - 06/26/18 17:51 Bacterial urine culture SEE COMMEN NRG COLONY COUNT . NRG Complete blood count (CBC) with automate d white blood cell (WBC) differential - 06/26/18 17:59 Blood leukocytes automated count (number/volume) 6.9 10*3/uL 4.3-11.0 Blood erythrocytes automated count (number/volume) 3.59 10*6/uL 4.35-5.85 Venous blood hemoglobin measurement (mass/volume) 7.4 g/dL 11.5-16.0 Blood hematocrit (volume fraction) 25 % 35-52 Automated erythrocyte mean corpuscular volume 71 [ foz_us] 80-99 Automated erythrocyte mean corpuscular h emoglobin (mass per erythrocyte) 21 pg 25-34 Automated erythrocyte mean corpuscular h emoglobin concentration measurement (mass/volume) 29 g/dL 32-36 Automated erythrocyte distribution width ratio 19. 5 % 10.0- 14.5 Automated blood platelet count (count/volume) 441 10*3/uL 130-400 Automated blood platelet mean volume measurement 9.0 [foz_us] 7.4-10.4 Automated blood neutrophils/100 leukocytes 62 % 42-75 Automated blood lymphocytes/100 leukocytes 26 % 12-44 Blood monocytes/100 leukocytes 8 % 0-12 Automated blood eosinophils/100 leukocytes 4 % 0-10 Automated blood basophils/100 leukocytes 0 % 0-10 Blood neutrophils automated count (number/volume) 4.3 10*3 1.8-7.8 Blood lymphocytes automated count (number/volume) 1.8 10*3 1.0-4.0 Blood monocytes automated count (number/volume) 0. 5 10*3 0.0-1.0 Automated eosinophil count 0.3 10*3/uL 0 .0-0.3 Automated blood basophil count (count/volume) 0.0 10*3/uL 0.0-0.1 ABO+Rh group - 06/26/18 17:59 ABO+Rh group OP NRG Comprehensive metabolic panel - 06/26/18 17:59 Serum or plasma sodium measurement (moles/volume) 138 mmol/L 135-145 Serum or plasma potassium measurement (moles/volume) 3.5 mmol/L 3.6-5.0 Serum or plasma chloride measurement (moles/volume) 107 mmol/L 98-107 Carbon dioxide 21 mmol/L 21-32 Serum or plasma anion gap determination (moles/volume) 10 mmol/L 5-14 Serum or plasma urea nitrogen measurement (mass/volume ) 7 mg/dL 7-18 Serum or plasma creatinine measurement (mass/volume) 0.66 mg/dL 0.60-1.30 Serum or plasma urea nitrogen/creatinine mass ratio 11 NRG Serum or plasma creatinine measurement w ith calculation of estimated glomerular filtration rate > NRG Serum or plasma glucose measurement (mass/volume) 80 mg/dL 70-105 Serum or plasma calcium measurement (mass/volume) 9.2 mg/dL 8.5-10.1 Serum or plasma total bilirubin measurement (mass/volu me) 0.2 mg/dL 0.1-1.0 Serum or plasma alkaline phosphatase deisi surement (enzymatic activity/volume) 60 U/L 40-136 Serum or plasma aspartate aminotransfera se measurement (enzymatic activity/volume) 16 U/L 5-34 Serum or plasma alanine aminotransferase measurement (enzymatic activity/volume) 14 U/L 0-55 Serum or plasma protein measurement (mass/volume) 7.5 g/dL 6.4-8.2 Serum or plasma albumin measurement (mass/volume) 4.0 g/dL 3.2-4.5 CALCIUM CORRECTED 9.2 mg/dL 8.5-10.1 Serum or plasma choriogonadotropin measu rement (units/volume) - 06/26/18 17:59 Serum or plasma choriogonadotropin measurement (units/ volume) 68759 m[iU]/mL <5 Serum iron and total iron binding capaci ty panel - 06/26/18 17:59 Serum or plasma iron measurement (mass/volume) 13 % 35-180 Total iron binding capacity and transferrin saturation measurement 2 % 15-50 Iron binding capacity [mass/volume] in serum or plasma 610 % 280-380 UIBC (unsaturated iron binding capacity) 596 % 55-450 Serum or plasma ferritin measurement (mass/volume) 4.5 % 20.0-177.0 Complete urinalysis with reflex to cultu re - 11/10/18 08:50 Urine color determination YELLOW NRG Urine clarity determination VERY CLOUDY NRG Urine pH measurement by test strip 5 5-9 Specific gravity of urine by test strip 1.025 1.016-1.022 Urine protein assay by test strip, semi-quantitative 2+ NEGATIVE Urine glucose detection by automated test strip NE GATIVE NEGATIVE Erythrocytes detection in urine sediment by light micr oscopy 5+ NEGATIVE Urine ketones detection by automated test strip 1+ NEGATIVE Urine nitrite detection by test strip NEGATIVE NEGATIVE Urine total bilirubin detection by test strip 1+ NEGATIVE Urine urobilinogen measurement by automated test strip (mass/volume) NORMAL NORMAL Urine leukocyte esterase detection by dipstick 3+ NEGATIVE Automated urine sediment erythrocyte cou nt by microscopy (number/high power field) [HPF] NRG Automated urine sediment leukocyte count by microscopy (number/high power field) TNTC NRG Bacteria detection in urine sediment by light microsco py FEW NRG Squamous epithelial cells detection in u rine sediment by light microscopy 10-25 NRG Crystals detection in urine sediment by light microsco py NONE NRG Casts detection in urine sediment by light microscopy NONE NRG Mucus detection in urine sediment by light microscopy NEGATIVE NRG Complete urinalysis with reflex to culture YES NRG Bacterial urine culture - 11/10/18 08:50 Bacterial urine culture 3 OR MORE NRG COLONY COUNT 30,000 CFU/ML NRG FTX;REPORTABLE GRAM POSITIVE; SUGGESTING PROBABLE NRG FREE TEXT ENTRY 2 COLLECTION CONTAMINATION WITH SK IN NRG FREE TEXT ENTRY 3 TERESA. NO SUSCEPTIBILITY PERFORM ED. NRG Complete blood count (CBC) with automate d white blood cell (WBC) differential - 11/10/18 09:00 Blood leukocytes automated count (number/volume) 8.9 10*3/uL 4.3-11.0 Blood erythrocytes automated count (number/volume) 3.80 10*6/uL 4.35-5.85 Venous blood hemoglobin measurement (mass/volume) 10.1 g/dL 11.5-16.0 Blood hematocrit (volume fraction) 31 % 35-52 Automated erythrocyte mean corpuscular volume 82 [ foz_us] 80-99 Automated erythrocyte mean corpuscular h emoglobin (mass per erythrocyte) 27 pg 25-34 Automated erythrocyte mean corpuscular h emoglobin concentration measurement (mass/volume) 32 g/dL 32-36 Automated erythrocyte distribution width ratio 18. 5 % 10.0- 14.5 Automated blood platelet count (count/volume) 259 10*3/uL 130-400 Automated blood platelet mean volume measurement 9.7 [foz_us] 7.4-10.4 Automated blood neutrophils/100 leukocytes 75 % 42-75 Automated blood lymphocytes/100 leukocytes 15 % 12-44 Blood monocytes/100 leukocytes 7 % 0-12 Automated blood eosinophils/100 leukocytes 3 % 0-10 Automated blood basophils/100 leukocytes 0 % 0-10 Blood neutrophils automated count (number/volume) 6.7 10*3 1.8-7.8 Blood lymphocytes automated count (number/volume) 1.3 10*3 1.0-4.0 Blood monocytes automated count (number/volume) 0. 6 10*3 0.0-1.0 Automated eosinophil count 0.2 10*3/uL 0 .0-0.3 Automated blood basophil count (count/volume) 0.0 10*3/uL 0.0-0.1 Blood type T Indirect antibody screen pa gato - 11/10/18 09:00 ABO+Rh group OP NRG Transfusion band number [id number] NRG Blood group antibody screen NEGATIVE NR G Complete blood count (CBC) with automate d white blood cell (WBC) differential - 11/11/18 05:30 Blood leukocytes automated count (number/volume) 12.1 10*3/uL 4.3-11.0 Blood erythrocytes automated count (number/volume) 3.83 10*6/uL 4.35-5.85 Venous blood hemoglobin measurement (mass/volume) 10.0 g/dL 11.5-16.0 Blood hematocrit (volume fraction) 32 % 35-52 Automated erythrocyte mean corpuscular volume 83 [ foz_us] 80-99 Automated erythrocyte mean corpuscular h emoglobin (mass per erythrocyte) 26 pg 25-34 Automated erythrocyte mean corpuscular h emoglobin concentration measurement (mass/volume) 32 g/dL 32-36 Automated erythrocyte distribution width ratio 18. 4 % 10.0- 14.5 Automated blood platelet count (count/volume) 237 10*3/uL 130-400 Automated blood platelet mean volume measurement 9.5 [foz_us] 7.4-10.4 Automated blood neutrophils/100 leukocytes 86 % 42-75 Automated blood lymphocytes/100 leukocytes 8 % 12-44 Blood monocytes/100 leukocytes 5 % 0-12 Automated blood eosinophils/100 leukocytes 1 % 0-10 Automated blood basophils/100 leukocytes 0 % 0-10 Blood neutrophils automated count (number/volume) 10.4 10*3 1.8-7.8 Blood lymphocytes automated count (number/volume) 1.0 10*3 1.0-4.0 Blood monocytes automated count (number/volume) 0. 6 10*3 0.0-1.0 Automated eosinophil count 0.1 10*3/uL 0 .0-0.3 Automated blood basophil count (count/volume) 0.0 10*3/uL 0.0-0.1 Complete urinalysis with reflex to cultu re - 03/13/20 11:30 Urine color determination YELLOW NRG Urine clarity determination CLEAR NR G Urine pH measurement by test strip 8.5 5-9 Specific gravity of urine by test strip 1.015 1.016-1.022 Urine protein assay by test strip, semi-quantitative TRACE NEGATIVE Urine glucose detection by automated test strip NE GATIVE NEGATIVE Erythrocytes detection in urine sediment by light micr oscopy NEGATIVE NEGATIVE Urine ketones detection by automated test strip NE GATIVE NEGATIVE Urine nitrite detection by test strip NEGATIVE NEGATIVE Urine total bilirubin detection by test strip NEGA TIVE NEGATIVE Urine urobilinogen measurement by automated test strip (mass/volume) 1.0 mg/dL < = 1.0 Urine leukocyte esterase detection by dipstick NEG ATIVE NEGATIVE Automated urine sediment erythrocyte cou nt by microscopy (number/high power field) NONE NRG Automated urine sediment leukocyte count by microscopy (number/high power field) [HPF] NRG Bacteria detection in urine sediment by light microsco py TRACE NRG Squamous epithelial cells detection in u rine sediment by light microscopy 10-25 NRG Crystals detection in urine sediment by light microsco py NONE NRG Casts detection in urine sediment by light microscopy NONE NRG Mucus detection in urine sediment by light microscopy SMALL NRG Complete urinalysis with reflex to culture NO NRG Encounters ACCT No. Visit Date/Time Discharge Status Pt. Type Provider Facility Loc./Unit Complaint [id number] 03/24/2019 15:00:00 03/24/2019 23:59: 59 CLS Outpatient [facility] [id number] 06/14/2018 15:35:00 Document Registration [id number] 05/22/2018 15:30:00 Document Registration [id number] 11/10/2018 08:45:00 11:13:00 DIS Inpatient MARIELENA RUIZ DO [facility] LDRP LABOR [id number] 09/27/2018 09:36:00 23:59:59 CLS Outpatient MARIELENA RUIZ DO [facility] RAD EVALUATE ANATOMY NOT SE EN ON PRIOR SONO [id number] 08/13/2018 09:28:00 15:20:00 DIS Outpatient MARIELENA RUIZ DO [facility] SEVERE IRON DEF. ANEMIA [id number] 07/25/2018 10:20:00 23:59:59 CLS Outpatient MARIELENA RUIZ DO [facility] RAD 21 WKS GESTATION [id number] 06/26/2018 17:38:00 21:08:00 DIS Emergency AZUCENA TEIXEIRA [facility] ER 17W OB, VAGINAL BLEEDIN G, LOWER R BACK PAIN [id number] 06/10/2018 14:04:00 23:59:59 CLS Outpatient HECTOR GE, SYLVESTER Fischer [facility] RAD MULTIGRAVIDA IN FIRST T MICKY Z34.81 [id number] 03/13/2020 11:53:00 Document Registration
[2020-03-13 11:58] LABS: BASOPHILS # (AUTO) 0.1 10^3/uL (0.0-0.1); BASOPHILS % (AUTO) 1 % (0-10); EOSINOPHILS # (AUTO) 0.2 10^3/uL (0.0-0.3); EOSINOPHILS % (AUTO) 3 % (0-10); HEMATOCRIT 31 % (35-52); HEMOGLOBIN 9.1 G/DL (11.5-16.0); LYMPHOCYTES # (AUTO) 1.4 X 10^3 (1.0-4.0); LYMPHOCYTES % (AUTO) 29 % (12-44); MEAN CORPUSCULAR HEMOGLOBIN 20 PG (25-34); MEAN CORPUSCULAR HGB CONC 30 G/DL (32-36); MEAN CORPUSCULAR VOLUME 68 FL (80-99); MEAN PLATELET VOLUME 9.4 FL (7.4-10.4); MONOCYTES # (AUTO) 0.3 X 10^3 (0.0-1.0); MONOCYTES % (AUTO) 6 % (0-12); NEUTROPHILS # (AUTO) 2.9 X 10^3 (1.8-7.8); NEUTROPHILS % (AUTO) 61 % (42-75); PLATELET COUNT 527 10^3/uL (130-400); RED CELL DISTRIBUTION WIDTH 20.5 % (10.0-14.5); WHITE BLOOD COUNT 4.7 10^3/uL (4.3-11.0)
[2020-03-13] MEDS ORDERED: ONDANSETRON 4 MG/2 ML (SDV) Z0FRAN IVP ONE (12:00)
[2020-03-13 12:01] LABS: ALBUMIN 4.6 GM/DL (3.2-4.5)
[2020-03-13 12:02] LABS: CHLORIDE 108 MMOL/L (98-107); POTASSIUM 3.5 MMOL/L (3.6-5.0); SODIUM 139 MMOL/L (135-145)
[2020-03-13 12:03] LABS: CALCIUM 8.9 MG/DL (8.5-10.1)
[2020-03-13 12:04] LABS: GLUCOSE 87 MG/DL (70-105); TOTAL PROTEIN 7.8 GM/DL (6.4-8.2)
[2020-03-13 12:05] LABS: CARBON DIOXIDE 19 MMOL/L (21-32)
[2020-03-13 12:06] LABS: BILIRUBIN,TOTAL 0.6 MG/DL (0.1-1.0)
[2020-03-13 12:07] LABS: ALKALINE PHOSPHATASE 79 U/L (40-136)
[2020-03-13 12:08] LABS: CREATININE SERUM 0.78 MG/DL (0.60-1.30); GFR ESTIMATED > 60
[2020-03-13 12:09] LABS: BUN/CREATININE RATIO 10
[2020-03-13 12:11] LABS: ALANINE AMINOTRANSFERASE 21 U/L (0-55); LIPASE 12 U/L (8-78)
[2020-03-13] MEDS ORDERED: HOLD METFORMIN - RECEIVED CONTRAST 20 ML VIAL IV SCH (12:15)
[2020-03-13] MEDS ORDERED: IOHEXOL 350 MG/ML 100 ML (OMNIPAQUE 350) VIAL IV ONE (12:15)
[2020-03-13] MEDS ORDERED: NS 100 ML (IVPB) BAG IV ONE (12:15)
--- NOTE | 2020-03-13 12:54 | Diagnostic Imaging Report ---
PROCEDURE: CT abdomen and pelvis with contrast. TECHNIQUE: Multiple contiguous axial images were obtained through the abdomen and pelvis after administration of intravenous contrast. Auto Exposure Controls were utilized during the CT exam to meet ALARA standards for radiation dose reduction. INDICATION: Bilateral flank pain. Nausea and vomiting. COMPARISON: None. FINDINGS: Hypoattenuating and hypoenhancing mass in the right hepatic lobe measures 2.9 x 3.4 cm. This contains a hyperdensity on both contrast and delayed images measuring 0.7 cm. The gallbladder, pancreas, spleen, adrenals, kidneys, collecting systems and bladder are negative. Peripherally enhancing cyst in the right ovary measuring up to 2.1 cm likely represents a corpus luteum. Scant free fluid dependently in the pelvis. Normal appendix. No free intraperitoneal air. No lymphadenopathy. No evidence of bowel obstruction or inflammation. No acute osseous findings. IMPRESSION: 1. Hypoattenuating mass in the right hepatic lobe containing a central hyperattenuation. This is indeterminate and a parasitic infection could have a similar appearance. Recommend nonemergent followup with dedicated MRI with contrast. 2. Peripheral enhancing cyst in the right ovary likely represents a corpus luteum. Scant free fluid dependently in the pelvis may be physiologic. 3. CT abdomen and pelvis is otherwise unremarkable. Dictated by: Dictated on workstation # [id number]
[2020-03-13] MEDS ORDERED: OMEP40CA27 PO (13:26)
[2020-03-13] MEDS ORDERED: ONDA4TAB11 PO (13:26)
[2020-03-13 13:35] VITALS: BP 120/68
== END 2020-03-13 13:35 | disposition home or self-care (01) ==
LOC: EDUNIT# 11:24 → ER 11:25
DX: K80.50 Calculus of bile duct without cholangitis or cholecystitis without obstruction (principal); K76.9 Liver disease, unspecified; Z82.49 Family history of ischemic heart disease and other diseases of the circulatory system
CPT/HCPCS: 36415; 74177; 80053; 81000; 83690; 84703; 85025

== ENCOUNTER 2020-05-06 20:17 | Emergency (ER) | payer SELFPAY ==
[~2020-05-06] VITALS: Ht 165 cm; Wt 68.0 kg
[~2020-05-06 20:17] MED LIST changes: +OMEP40CA27 PO; +ONDA4TAB11 PO
--- NOTE | 2020-05-06 20:46 | ED Abdominal Pain ---
General Chief Complaint: Abdominal/GI Problems Stated Complaint: UPPER ABD & BACK PAIN/NASUA/VOMITING Nursing Triage Note: PT HERE WITH SUDDEN ONSET EPIGASTRIC PAIN, N/V. STATES THAT THE PAIN IS 8/10. REPORTS PAIN IS SIMILAR TO ANOTHER EPISODE SHE HAD AND WAS TOLD IT WAS RELATED TO HER LIVER/GALLBLADDER. PT STATES SHE HAS VOMITED X 4 TIMES. Sepsis Screen: No Definite Risk Source of Information: Patient History of Present Illness Date Seen by Provider: May 06, 2020 Time Seen by Provider: 20:35 Initial Comments PT ARRIVES VIA POV FROM HOME C/O EPIGASTRIC ABDOMINAL PAIN THAT RADIATES TO RIGHT UPPER ABDOMEN AND AROUND TO RIGHT FLANK PAIN BEGAN ABOUT 3 HOURS AGO HAD AN NOODLE SOUP 4 HOURS PRIOR PAIN IS CONSTANT AND NOTHING WORSENS OR IMPROVES PAIN. NO RELIEF WITH IBUPROFEN C/O NAUSEA AND VOMITED X 4, DIARRHEA X 1 C/O URINARY FREQUENCY AND URGENCY, BUT NO PAIN ON URINATION NO FEVER LMP 03/27/20. NO CONTROL, TRYING TO CONCEIVE. HAS NOT DONE HOME TEST HAD SAME TYPE OF PAIN AND WAS SEEN HERE 03/13/20 AND WAS SUSPECTED SHE WAS HAVING BILIARY COLIC, GIVEN RX FOR ZOFRAN AND OMEPRAOLE, AND REFERRED TO DR. ESCOBAR PT DID NOT FOLLOW UP WITH DR. ESCOBAR OR ANYONE SINCE THAT VISIT DID NOT GET PRESCRIPTIONS FILLED PT DENIES ANY PRIOR ABDOMINAL SURGERIES OR OTHER GI OR PROBLEMS PCP: [facility] [place] ENROBER: DR. RUIZ Allergies and Home Medications Allergies Coded Allergies: No Known Drug Allergies (Unverified , 06/26/18) Home Medications Acetaminophen 500 Mg Tablet, 1,000 MG PO Q8H Prescribed by: MARIELENA RUIZ on 11/12/18 0240 Doxylamine/Pyridoxine HCl 1 Each Tablet.dr, 2 EACH PO HS Prescribed by: EUGENE MURCIA on 05/06/202133 Ferrous Sulfate 325 Mg Tablet, 325 MG PO DAILY Prescribed by: EUGENE MURCIA on 05/06/202130 Ibuprofen 600 Mg Tablet, 600 MG PO Q6H Prescribed by: MARIELENA RUIZ on 11/12/18 0240 Omeprazole 40 Mg Capsule.dr, 40 MG PO DAILY Prescribed by: KRISTEL MARTINEZ on 03/13/20 1326 Ondansetron 4 Mg Tab.rapdis, 4 MG PO Q6H PRN for NAUSEA/VOMITING Prescribed by: KRISTEL MARTINEZ on 03/13/20 1326 Vit W-Ca,Fe,FA(<1 mg) 1 Each Tablet, 1 EACH PO DAILY Prescribed by: EUGENE MURCIA on 05/06/202130 Patient Home Medication List Home Medication List Reviewed: Yes Review of Systems Review of Systems Constitutional: no symptoms reported Respiratory: No Symptoms Reported Cardiovascular: No Symptoms Reported Gastrointestinal: See HPI, Abdominal Pain, Diarrhea, Nausea, Vomiting Genitourinary: See HPI; Denies Burning; Frequency, Flank Pain; Denies Hematuria; Urgency Musculoskeletal: see HPI, back pain Skin: no symptoms reported; No rash Psychiatric/Neurological: No Symptoms Reported Endocrine: No Symptoms Reported Hematologic/Lymphatic: No Symptoms Reported Past Msxbatq-Bfbogp-Gvqnwe Hx Past Med/Social Hx: Reviewed and Corrections made Patient Social History Alcohol Use: Denies Use Recreational Drug Use: No Smoking Status: Never a Smoker 2nd Hand Smoke Exposure: No Recent Foreign Travel: No Contact w/Someone Who Travel: No Recent Infectious Disease Expo: No Recent Hopitalizations: No Immunizations Up To Date Tetanus Booster (TDap): Less than 5yrs Seasonal Allergies Seasonal Allergies: No Past Medical History Surgeries: No Respiratory: No Cardiac: No Neurological: No Last Menstrual Period: Mar 27, 2020 Hx : 2 Hx Para: 2 Hx Total # of Abortions (Sp): 0 Female Reproductive Disorders: Denies Sexually Transmitted Disease: No HIV/AIDS: No Genitourinary: No Gastrointestinal: No Musculoskeletal: No Endocrine: No HEENT: No Cancer: No Psychosocial: No Integumentary: No Blood Disorders: Yes (ENEMIA WITH PREGNANCIES-REQUIRED TRANSFUSIONS) Adverse Reaction/Blood Tranf: No YES--WITH PREGNANCIES Family Medical History Autism in sibling G8 SISTER Hypertension 19 FATHER 19 MOTHER Physical Exam Vital Signs Vital Signs - First Documented 05/06/20 20:27 Temp 36.5 Pulse 71 Resp 20 B/P (MAP) 122/80 (94) Pulse Ox 100 O2 Delivery Room Air Capillary Refill : Less Than 3 Seconds Height/Weight/BMI Height: 5'5.00" Weight: 171lbs. 8.0oz. 77.015250uk; 24.00 BMI Method:Stated General Appearance: WD/WN, no apparent distress, other (WALKS UPRIGHT AND MOVES WITHOUT DIFFICULTY) HEENT: No scleral icterus (R), No scleral icterus (L) Neck: normal inspection Respiratory: normal breath sounds, no respiratory distress, no accessory muscle use Cardiovascular: regular rate, rhythm, no murmur Gastrointestinal: normal bowel sounds, soft, no organomegaly, no pulsatile mass; No distended, No guarding, No rebound; tenderness (MODERATE EPIGASTRIC AND RUQ AND RIGHT FLANK TENDERNESS. NO LOWER ABDOMINAL TENDERNESS OR PAIN ); No hernia, No mass Extremities: normal inspection Back: CVA tenderness (R) Neurologic/Psychiatric: prepper II-XII nml as tested, no motor/sensory deficits, alert, normal mood/affect, oriented x 3 Skin: normal color, warm/dry; No rash Progress/Results/Core Measures Results/Orders Lab Results Laboratory Tests Test 05/06/20 20:30 05/06/20 20:37 Range/Units White Blood Count 11.2 H 4.3-11.0 10^3/uL Red Blood Count 3.96 L 4.35-5.85 10^6/uL Hemoglobin 7.8 L 11.5-16.0 G/DL Hematocrit 27 L 35-52 % Mean Corpuscular Volume 68 L 80-99 FL Mean Corpuscular Hemoglobin 20 L 25-34 PG Mean Corpuscular Hemoglobin Concent 29 L 32-36 G/DL Red Cell Distribution Width 21.9 H 10.0-14.5 % Platelet Count 527 H 130-400 10^3/uL Mean Platelet Volume 9.0 7.4-10.4 FL Neutrophils (%) (Auto) 81 H 42-75 % Lymphocytes (%) (Auto) 13 12-44 % Monocytes (%) (Auto) 5 0-12 % Eosinophils (%) (Auto) 1 0-10 % Basophils (%) (Auto) 0 0-10 % Neutrophils # (Auto) 9.1 H 1.8-7.8 X 10^3 Lymphocytes # (Auto) 1.4 1.0-4.0 X 10^3 Monocytes # (Auto) 0.6 0.0-1.0 X 10^3 Eosinophils # (Auto) 0.1 0.0-0.3 10^3/uL Basophils # (Auto) 0.0 0.0-0.1 10^3/uL Sodium Level 136 135-145 MMOL/L Potassium Level 3.4 L 3.6-5.0 MMOL/L Chloride Level 106 98-107 MMOL/L Carbon Dioxide Level 20 L 21-32 MMOL/L Anion Gap 10 5-14 MMOL/L Blood Urea Nitrogen 6 L 7-18 MG/DL Creatinine 0.71 0.60-1.30 MG/DL Estimat Glomerular Filtration Rate > 60 BUN/Creatinine Ratio 8 Glucose Level 94 70-105 MG/DL Calcium Level 8.9 8.5-10.1 MG/DL Corrected Calcium 8.6 8.5-10.1 MG/DL Total Bilirubin 0.4 0.1-1.0 MG/DL Aspartate Amino Transf (AST/SGOT) 25 5-34 U/L Alanine Aminotransferase (ALT/SGPT) 15 0-55 U/L Alkaline Phosphatase 72 40-136 U/L Total Protein 7.9 6.4-8.2 GM/DL Albumin 4.4 3.2-4.5 GM/DL Amylase Level 72 25-125 U/L Lipase 12 8-78 U/L Urine Color YELLOW Urine Clarity CLEAR Urine pH 7.0 5-9 Urine Specific [place] 1.020 1.016-1.022 Urine Protein NEGATIVE NEGATIVE Urine Glucose (UA) NEGATIVE NEGATIVE Urine Ketones 1+ H NEGATIVE Urine Nitrite NEGATIVE NEGATIVE Urine Bilirubin NEGATIVE NEGATIVE Urine Urobilinogen 0.2 < = 1.0 MG/DL Urine Leukocyte Esterase NEGATIVE NEGATIVE Urine RBC (Auto) NEGATIVE NEGATIVE Urine RBC NONE /HPF Urine WBC RARE /HPF Urine Squamous Epithelial Cells 2-5 /HPF Urine Crystals NONE /LPF Urine Bacteria TRACE /HPF Urine Casts NONE /LPF Urine Mucus SMALL H /LPF Urine Culture Indicated NO My Orders Orders - EUGENE MURCIA DO Ed Iv/Invasive Line Start (05/06/20 20:34) Urine Bedside (05/06/20 20:34) Amylase (05/06/20 20:34) Cbc With Automated Diff (05/06/20 20:34) Comprehensive Metabolic Panel (05/06/20 20:34) Lipase (05/06/20 20:34) Ua Culture If Indicated (05/06/20 20:34) Cbc And Manual Diff (05/06/20 20:30) Reticulocyte Count (05/06/20 20:30) Vital Signs/I&O 05/06/20 20:27 Temp 36.5 Pulse 71 Resp 20 B/P (MAP) 122/80 (94) Pulse Ox 100 O2 Delivery Room Air Blood Pressure Mean: 94 Progress Progress Note : Progress Note ON REVIEWING TEST RESULTS WITH PT, SHE STATES THAT SHE HAD ANEMIA WITH BOTH OF HER PREVIOUS PREGNANCIES AND REQUIRED TRANSFUSIONS, BUT WAS LATER IN --NOT IN EARLY . PAIN AND NAUSEA EASED DURING ER STAY, WITHOUT TREATMENT DISCUSSED THE IMPORTANCE OF FOLLOW UP WITH ENROBER FOR FURTHER CARE WILL ORDER OUTPATIENT ULTRASOUNDS OF ABDOMEN AND OB ULTRASOUND WELL Departure Communication (Admissions) 2113--SPOKE WITH DR. PEREZ, HE ADVISES TO HAVE LAB DO PERIPHERAL SMEAR, WILL ORDER OUTPATIENT ULTRASOUNDS OF ABDOMEN FOR RUQ PAIN, AND OF PELVIS FOR OB EVALUATION. PT TO FOLLOW UP WITH OB OF CHOICE FOR FURTHER CARE. WILL START ON IRON IN ADDITION TO VITAMINS. Impression Primary Impression: EPIGASTRIC AND RUQ PAIN --SUSPECT BILIARY COLIC Additional Impressions: Positive test ANEMIA Disposition: 01 HOME, SELF-CARE Condition: Stable Departure-Patient Inst. Referrals: JOSE PEREZ DO [facility] Patient Instructions: Anemia Caused by Low Iron, Adult (DC), Gallbladder Diet, How to Plan and Prepare for a Healthy , POSS GALLSTONE-W/BILIARY COLIC, Severe Abdominal Pain, Adult (DC) Add. Discharge Instructions: TYLENOL NEEDED FOR PAIN CLEAR LIQUIDS--WATER, BROTH, JELLO, GATORADE BRATS DIET--BANANAS, RICE, APPLESAUCE, TOAST, SALTINES TAKE COLACE STOOL SOFTENER DAILY TAKE IRON SUPPLEMENT DAILY, IN ADDITION TO VITAMIN DAILY CALL IN THE MORNING TO ARRANGE OUTPATIENT ULTRASOUNDS CALL IN THE MORNING TO FOLLOW UP WITH DR PEREZ, ENROBER, FOR FURTHER CARE, OR YOU MAY FOLLOW UP WITH ENROBER OF CHOICE AT [facility]. All discharge instructions reviewed with patient and/or family. Voiced understanding. Scripts Doxylamine/Pyridoxine HCl (Omer Holman 10-10 mg Tablet) 1 Each Tablet.dr 2 EACH PO HS, #60 TAB Prov: EUGENE MURCIA DO 05/06/20 Ferrous Sulfate (Iron) 325 Mg Tablet 325 MG PO DAILY for 90 Days, #1 TAB Prov: EUGENE MURCIA DO 05/06/20 Vit W-Ca,Fe,FA(<1 mg) ( Vitamins) 1 Each Tablet 1 EACH PO DAILY for 90 Days, #1 TAB Prov: EUGENE MURCIA DO 05/06/20 EUGENE MURCIA DO May 06, 2020 20:46
[2020-05-06 20:51] LABS: BASOPHILS % (AUTO) 0 % (0-10); EOSINOPHILS # (AUTO) 0.1 10^3/uL (0.0-0.3); EOSINOPHILS % (AUTO) 1 % (0-10); HEMATOCRIT 27 % (35-52); HEMOGLOBIN 7.8 G/DL (11.5-16.0); LYMPHOCYTES # (AUTO) 1.4 X 10^3 (1.0-4.0); LYMPHOCYTES % (AUTO) 13 % (12-44); MEAN CORPUSCULAR HEMOGLOBIN 20 PG (25-34); MEAN CORPUSCULAR HGB CONC 29 G/DL (32-36); MEAN CORPUSCULAR VOLUME 68 FL (80-99); MONOCYTES # (AUTO) 0.6 X 10^3 (0.0-1.0); MONOCYTES % (AUTO) 5 % (0-12); NEUTROPHILS # (AUTO) 9.1 X 10^3 (1.8-7.8); NEUTROPHILS % (AUTO) 81 % (42-75); PLATELET COUNT 527 10^3/uL (130-400); WHITE BLOOD COUNT 11.2 10^3/uL (4.3-11.0)
[2020-05-06 20:55] LABS: BILIRUBIN,URINE NEGATIVE (NEGATIVE); CLARITY,URINE CLEAR; COLOR,URINE YELLOW; GLUCOSE, URINE (UA) NEGATIVE (NEGATIVE); KETONES,URINE 1+ (NEGATIVE); LEUKOCYTE ESTERASE ,URINE NEGATIVE (NEGATIVE); NITRITE,URINE NEGATIVE (NEGATIVE); PROTEIN,URINE NEGATIVE (NEGATIVE)
[2020-05-06 21:01] LABS: BACTERIA,URINE TRACE /HPF; WBC,URINE RARE /HPF
[2020-05-06 21:03] LABS: ALBUMIN 4.4 GM/DL (3.2-4.5); CHLORIDE 106 MMOL/L (98-107); POTASSIUM 3.4 MMOL/L (3.6-5.0); SODIUM 136 MMOL/L (135-145)
[2020-05-06 21:04] LABS: AMYLASE 72 U/L (25-125); CALCIUM 8.9 MG/DL (8.5-10.1)
[2020-05-06 21:05] LABS: GLUCOSE 94 MG/DL (70-105); TOTAL PROTEIN 7.9 GM/DL (6.4-8.2)
[2020-05-06 21:07] LABS: BILIRUBIN,TOTAL 0.4 MG/DL (0.1-1.0); CARBON DIOXIDE 20 MMOL/L (21-32)
[2020-05-06 21:09] LABS: ALKALINE PHOSPHATASE 72 U/L (40-136); CREATININE SERUM 0.71 MG/DL (0.60-1.30); GFR ESTIMATED > 60
[2020-05-06 21:10] LABS: BUN/CREATININE RATIO 8
[2020-05-06 21:12] LABS: ALANINE AMINOTRANSFERASE 15 U/L (0-55)
[2020-05-06 21:13] LABS: LIPASE 12 U/L (8-78)
[2020-05-06] MEDS ORDERED: FERR-84 PO (21:31)
[2020-05-06] MEDS ORDERED: PREN1TAB79 PO (21:31)
[2020-05-06] MEDS ORDERED: DOXY1TAB3 PO (21:34)
[2020-05-06 21:52] LABS: BAND NEUTROPHILS 0 %; BASOPHILS % (MANUAL) 0 %; EOSINOPHILS % (MANUAL) 0 %; HYPOCHROMASIA MODERATE; LYMPHOCYTES % (MANUAL) 13 %; MONOCYTES % (MANUAL) 6 %; NEUTROPHILS % (MANUAL) 81 %; POIKILOCYTOSIS SLIGHT; POLYCHROMASIA SLIGHT
[2020-05-06 21:53] LABS: ANISOCYTOSIS MODERATE; MICROCYTOSIS SLIGHT; TARGET CELLS SLIGHT; TEAR DROP CELLS SLIGHT
[2020-05-06 21:55] VITALS: BP 122/80
[2020-05-06 21:58] LABS: RETICULOCYTE % 1.41 % (0.50-2.40)
[2020-05-06 21:59] LABS: ABSOLUTE RETIC # 57 10e9/L (24-90)
== END 2020-05-06 21:56 | disposition home or self-care (01) ==
LOC: EDUNIT# 20:17 → ER 20:19
DX: R10.13 Epigastric pain (principal); R10.11 Right upper quadrant pain; D64.9 Anemia, unspecified; Z32.01 Encounter for pregnancy test, result positive; Z82.49 Family history of ischemic heart disease and other diseases of the circulatory system
CPT/HCPCS: 36415; 80053; 81000; 82150; 83690; 84703; 85007; 85025; 85027; 85045

== ENCOUNTER → 2020-05-12 | Outpatient (CLI) | payer SELFPAY ==
[~2020-05-12] MED LIST changes: +DOXY1TAB3 PO
--- NOTE | 2020-05-12 11:01 | Diagnostic Imaging Report ---
INDICATION: Right upper quadrant pain. The liver measures 14.7 cm in size. There is an irregular area of hypoechogenicity in the right lobe of the liver measuring 3.1 x 2.6 x 2.9 cm. No other liver masses are seen. There are some echogenic foci within the gallbladder suggestive of stones. No wall thickening or biliary ductal dilatation is identified. Visualized pancreas is unremarkable. Spleen is normal in size at 9.7 cm. Aorta is nonaneurysmal. IVC is patent. Both right and left kidneys are without calculi or hydronephrosis. There is no ascites. IMPRESSION: Hypoechoic complex right lobe liver mass corresponding to the lesion noted on CT study from 03/13/2020. Size of lesion is similar to the examination 2 months earlier and remains indeterminate. This again is indeterminate between a potential neoplastic process versus an infectious/inflammatory process such as liver abscess. Continued close follow-up would be recommended to confirm stability. Cholelithiasis without evidence of acute cholecystitis. Dictated by: Dictated on workstation # [id number]
--- NOTE | 2020-05-12 11:02 | Diagnostic Imaging Report ---
PROCEDURE: US OB SINGLE FETUS <14 WKS. TECHNIQUE: Multiple Real-time grayscale images were obtained over the gravid uterus in various projections. INDICATION: Newly diagnosed . FINDINGS: There is an intrauterine gestational sac containing a pole. The crown-rump length measurement is approximately 10 mm, consistent with a 7 week 1 day gestation. The heart rate was recorded at 147 BPM. No jean pierre-gestational sac hemorrhage is detected. The left ovary was not visualized. The right ovary does contain a 2.3 cm cyst. There is no free fluid. IMPRESSION: 1. Single live IUP of 7 weeks 1 day gestational age. The estimated date of confinement sonographically is 12/28/2020. 2. There is a 2.3 cm right ovarian cyst. Dictated by: Dictated on workstation # [id number]
== END ==
LOC: RAD 08:00
PROVIDERS: ATTEND Emergency Medicine
DX: O34.81 Maternal care for other abnormalities of pelvic organs, first trimester (principal); O26.611 Liver and biliary tract disorders in pregnancy, first trimester; K80.20 Calculus of gallbladder without cholecystitis without obstruction; N83.201 Unspecified ovarian cyst, right side; K76.89 Other specified diseases of liver; Z3A.01 Less than 8 weeks gestation of pregnancy
CPT/HCPCS: 76700; 76801

== ENCOUNTER → 2020-06-02 | Outpatient (CLI) | payer SELFPAY ==
[~2020-06-02] MED LIST changes: +ACHD5005 PO; +FERR325T18 PO; +FOLI0.8T PO; +IBUP-1773 PO
--- NOTE | 2020-06-02 13:21 | Diagnostic Imaging Report ---
PROCEDURE: US OB SINGLE FETUS <14 WKS. TECHNIQUE: Multiple real-time grayscale images were obtained over the gravid uterus in various projections. INDICATION: No heart tones in doctor's office. FINDINGS: Uterus measures 11.9 x 7.8 x 8.0 cm. There is an intrauterine gestational sac containing a pole. [place]-rump length measurement is 23 mm consistent with 9 weeks 0 days gestation. However, no heart tones are identified, consistent with embryonic demise. No jean pierre-gestational sac hemorrhage is detected. Adnexa are unremarkable. IMPRESSION: Findings consistent with 9 week 0 day intrauterine embryonic demise. No other abnormality is identified. Dictated by: Dictated on workstation # [id number]
== END ==
LOC: RAD 11:39
PROVIDERS: ATTEND Obstetrics & Gynecology
DX: O36.80X0 Pregnancy with inconclusive fetal viability, not applicable or unspecified (principal); Z3A.09 9 weeks gestation of pregnancy; Z20.828 Contact with and (suspected) exposure to other viral communicable diseases
CPT/HCPCS: 76801

== ENCOUNTER → 2020-06-03 | Outpatient (CLI) | payer SELFPAY | LOC: LABNPT 05:44 | PROVIDERS: ATTEND Obstetrics & Gynecology | DX: Z20.828 Contact with and (suspected) exposure to other viral communicable diseases (principal) | CPT/HCPCS: 87635 ==

== ENCOUNTER 2020-06-04 06:02 | Day surgery (SDC) | payer SELFPAY ==
[2020-06-04] VITALS (11 sets, daily range): BP systolic 95–120; BP diastolic 50–76
[~2020-06-04] VITALS: Ht 165 cm; Wt 71.8 kg
[~2020-06-04 06:02] MED LIST changes: -ACHD5005 PO; -FERR325T18 PO; -FOLI0.8T PO; -IBUP-1773 PO
[2020-06-04] MEDS ORDERED: LACTATED RINGERS 1,000 ML IV PRN (06:10)
[2020-06-04] MEDS ORDERED: SEVOFLURANE (ULTANE) 15 ML INHAL SOLN ONE ×3 (06:42→07:39)
[2020-06-04] MEDS ORDERED: ONDANSETRON 4 MG/2 ML (SDV) Z0FRAN ONE (06:42)
[2020-06-04] MEDS ORDERED: LIDOCAINE PF 2% 5 ML (XYLOCAINE) VIAL ONE (06:42)
[2020-06-04] MEDS ORDERED: proPOfol 200 MG/20 ML (DIPRIVAN) VIAL IV ONE (06:42)
[2020-06-04] MEDS ORDERED: MIDAZOLAM 2 MG/2 ML (VERSED) VIAL ONE (06:43)
[2020-06-04] MEDS ORDERED: fentaNYL INJECTION 100 MCG/2 ML AMP ONE (06:43)
[2020-06-04] MEDS ORDERED: D5 LR IV SOLUTION 1,000 ML IV SCH (07:19)
--- NOTE | 2020-06-04 07:27 | Progress Note-Pre Operative ---
Pre-Operative Progress Note H&P Reviewed The H&P was reviewed, patient examined and no changes noted. Date Seen by Provider: Jun 04, 2020 Time Seen by Provider: 07:15 Date H&P Reviewed: Jun 04, 2020 Time H&P Reviewed: 07:15 Pre-Operative Diagnosis: Missed JOSE Yañez DO Jun 04, 2020 07:27
--- NOTE | 2020-06-04 07:28 | Discharge Inst-Women's Service ---
Discharge Inst-Women's Serv Depart Medication/Instructions New, Converted or Re-Newed RX: RX on Chart Final Diagnosis Suction D and C po Problems Reviewed?: Yes Consults/Follow Up Additional Follow Up: Yes Orders/Referrals Dr. Perez in 2-3 weeks Activity Activity: Activity as Tolerated Driving Instructions: No Driving for 1 Week NO SMOKING: NO SMOKING Nothing Inside Vagina: No Douching, No [place], No Tampons Diet Discharge Diet: No Restrictions Symptoms to Report to : Bleeding Excessive, Pain Increased, Fever Over 101 Degrees F, Vaginal Bleeding Increase, Questions/Concerns For Any Problems or Questions: Contact Your Physician JOSE PEREZ DO Jun 04, 2020 07:28
[2020-06-04] MEDS ORDERED: HYDROcodone/APAP 5 MG/325 MG (LORTAB) TAB PO PRN (07:30)
[2020-06-04] MEDS ORDERED: ONDANSETRON 4 MG/2 ML (SDV) Z0FRAN IVP PRN ×2 (07:30→08:15)
[2020-06-04] MEDS ORDERED: FOLI0.8T PO (07:30)
[2020-06-04] MEDS ORDERED: ACHD5005 PO (07:30)
[2020-06-04] MEDS ORDERED: IBUP-1773 PO (07:30)
[2020-06-04] MEDS ORDERED: FERR325T18 PO (07:30)
[2020-06-04] MEDS ORDERED: KETOROLAC 30 MG/ML VIAL IVP ONE (07:30)
[2020-06-04] MEDS ORDERED: METHYLERGONOVINE 0.2 MG/ML (METHERGINE) AMP ONE ×2 (07:47→08:07)
--- NOTE | 2020-06-04 08:04 | Anesthesia-General Post-Op ---
General Patient Condition Mental Status/LOC: Same as Preop Cardiovascular: Satisfactory Nausea/Vomiting: Absent Respiratory: Satisfactory Pain: Controlled Complications: Absent Post Op Complications Complications None Follow Up Care/Instructions Patient Instructions None needed. Anesthesia/Patient Condition Patient Condition Patient is doing well, no complaints, stable vital signs, no apparent adverse anesthesia problems. No complications reported per nursing. WOOD MCCLELLAN CRNA Jun 04, 2020 08:04
[2020-06-04] MEDS ORDERED: MEPERIDINE (DEMEROL) INJ 50 MG/ML IVP ONE (08:15)
[2020-06-04] MEDS ORDERED: fentaNYL INJECTION 100 MCG/2 ML AMP IVP ONE (08:15)
[2020-06-04] MEDS ORDERED: morphine INJ 10 MG/ML 1ML (SYR OR VIAL) IVP ONE (08:15)
--- NOTE | 2020-06-04 13:35 | OPERATIVE REPORT ---
DATE OF SERVICE: PREOPERATIVE DIAGNOSES: 1. A 29-year-old G3, P2 at 9 weeks gestation. 2. Missed . POSTOPERATIVE DIAGNOSES: 1. A 29-year-old G3, P2 at 9 weeks gestation. 2. Missed . PROCEDURE: Suction D and C. SURGEON: Kings Andino DO ANESTHESIA: General LMA. ESTIMATED BLOOD LOSS: 300 mL. URINE OUTPUT: 50 mL, clear drained at the start of the procedure. FLUIDS: 800 mL lactated Ringer's solution. FINDINGS: Moderate to large amount of products of conception, grossly normal appearing external female genitalia. SPECIMEN SENT: Products of conception. INDICATION FOR PROCEDURE: This 29-year-old female is a patient who had seen me earlier in the week for first care visit. Her hemoglobin was found to be extremely low at that visit and a avalos was noted with no cardiac activity. This was confirmed with ultrasound at the hospital. I discussed with the patient my concern of her miscarrying on her own at home and the significant amount of blood loss could occur with her hemoglobin being so low. I discussed with the patient proceeding with this surgery in this circumstance, doing a suction D and C. Risks of procedure were discussed with the patient in detail. After all of her questions were answered, consent was obtained in the preoperative area and the patient was taken to the operating room. OPERATIVE REPORT IN DETAIL: Once in the operating room, anesthesia was found to be adequate. She was placed in dorsal lithotomy position, prepped and draped in normal sterile fashion and the bladder is drained using straight catheterization. Weighted speculum was inserted to the patient's vagina. Right angle retractor was used to visualize the cervix, which was grasped at 12 o'clock position using a long Allis clamp. I then placed two lateral sutures at 3 and 9 o'clock positions on the cervix to control bleeding and to partially ligate the uterine vessels to the cervix and uterus as I anticipated blood loss from this procedure, and the patient significantly low hemoglobin. Both of these are placed in a ligating fashion, securing the lateral aspect of the cervix, after which I then gently sound the uterine cavity, depth was found to be approximately 10 cm. I selected a #10 rigid curved Mcduffie suction device tip and gently dilated the cervix using Hanks dilators to approximately 1 cm. I then advanced the suction tip into the uterine cavity. I applied the Mcduffie device. The suction Mcduffie is then activated at a maximum suction of 65 mmHg is applied. I then gently on several passes, cleared the endometrium and the uterus of all products of conception once this was done on several occasions and there is little to no tissue being produced through the tubing system. I then gently performed a light sharp curettage of the endometrium after which the bleeding slows down. To ensure hemostasis, 0.2 mg of Methergine are given IM during the procedure. I then removed all the other instruments from the patient's vagina. The patient tolerated the procedure well and sent to recovery area in stable condition. Lap and sponge counts were correct at the end of the procedure. Instrument counts correct as well. Job ID: [id number] DocumentID: [id number] Dictated Date: 06/04/2020 08:57:23 Relocation Specialist Date: 06/04/2020 13:34:17 Dictated By: DO JANAK TAYLOR
== END 2020-06-04 10:10 | disposition home or self-care (01) ==
LOC: SDC 06:02
PROVIDERS: ATTEND Obstetrics & Gynecology
DX: O02.1 Missed abortion (principal); D64.9 Anemia, unspecified; Z11.2 Encounter for screening for other bacterial diseases
CPT/HCPCS: 87081

== ENCOUNTER 2020-12-20 11:49 | Outpatient (RCR) | payer SELFPAY ==
[2020-12-13] MEDS: IRON SUCROSE 200 MG/10 ML (VENOFER) VIAL IV SCH (09:08)
[2020-12-13 10:05] VITALS: BP 111/67
[2020-12-15 10:28] VITALS: BP 103/49
[2020-12-15] MEDS: IRON SUCROSE 200 MG/10 ML (VENOFER) VIAL IV SCH (10:28)
[2020-12-17 09:55] VITALS: BP 126/76
[2020-12-17] MEDS: IRON SUCROSE 200 MG/10 ML (VENOFER) VIAL IV SCH (10:03)
[~2020-12-20] VITALS: Ht 165.1 cm; Wt 72.7 kg
[~2020-12-20 11:49] MED LIST changes: +ACHD5005 PO; -CLIN300C11 PO; +CLIN300C12 PO; +FERR325T18 PO; +FOLI0.8T4 PO; +IBUP-1773 PO
[2020-12-20 11:50] VITALS: BP 126/69
[2020-12-20] MEDS: IRON SUCROSE 200 MG/10 ML (VENOFER) VIAL IV SCH (11:59)
== END 2020-12-20 12:35 | disposition home or self-care (01) ==
LOC: SDC 11:49
PROVIDERS: ATTEND Family Medicine
DX: D50.9 Iron deficiency anemia, unspecified (principal)
CPT/HCPCS: 96365

== ENCOUNTER → 2020-12-30 | Outpatient (CLI) | payer SELFPAY ==
[~2020-12-30] MED LIST changes: +GADOBUTROL 10 MMOL/10 ML (GADAVIST) VIAL IV ONE
--- NOTE | 2020-12-30 13:13 | Diagnostic Imaging Report ---
EXAMINATION: MRI of the abdomen with and without contrast. TECHNIQUE: Multiplanar, multisequence MR images of the abdomen were obtained with and without intravenous contrast. HISTORY: Right lobe liver lesion. COMPARISON: CT dated 03/13/2020 FINDINGS: The segment five liver lesion is unchanged in size measuring 3.2 x 3.0 cm, previously 3.3 x 2.9 cm. There is a peripheral rim of intrinsic T1 hyperintensity. There is no contrast enhancement associated with the lesion. It is T2 intermediate in signal and T1 hypointense. There does appear to be diffusion restriction. No other liver lesions are seen. Gallbladder contains stones. No biliary ductal dilatation. Pancreas, spleen and adrenal glands are normal. Kidneys are normal without focal lesion or hydronephrosis. Visualized bowel is normal in caliber without obstruction or inflammation. There is no lymphadenopathy. Aorta is normal in caliber. Limited views of the lower thorax are unremarkable. There are no suspicious osseous lesions. IMPRESSION: 1. Stable liver lesion in segment five with indeterminate imaging features, but no suspicious characteristics. I favor that this is sequela of prior trauma or infection. Given its stability it is likely benign and can be further followed in six months to one year. A biopsy could be considered but would be an aggressive course of action. Dictated by: Dictated on workstation # [id number]
== END ==
LOC: RAD 08:45
PROVIDERS: ATTEND Pediatrics
DX: K76.9 Liver disease, unspecified (principal)
CPT/HCPCS: 74183

== ENCOUNTER 2023-02-07 08:14 | Outpatient (RCR) | payer OTHER ==
[2023-02-05] MEDS: IRON SUCROSE 200 MG/10 ML (VENOFER) VIAL IV SCH (09:00)
[2023-02-05 09:35] VITALS: BP 128/85
[~2023-02-07 08:14] MED LIST changes: +CLIN-144 PO; -CLIN300C12 PO; -GADOBUTROL 10 MMOL/10 ML (GADAVIST) VIAL IV ONE; -OMEP40CA27 PO; +OMEP40CA6 PO
[2023-02-07] MEDS: IRON SUCROSE 200 MG/10 ML (VENOFER) VIAL IV SCH (08:36)
[2023-02-07 08:40] VITALS: BP 114/76
== END 2023-02-23 | disposition home or self-care (01) ==
LOC: SDC 08:14
PROVIDERS: ATTEND Pediatrics
DX: D50.9 Iron deficiency anemia, unspecified (principal)
CPT/HCPCS: 96365